=== PATIENT | female | born 1950 | race Caucasian/White ===

== ENCOUNTER → 2019-03-04 | Emergency (ER) | payer OTHER | LOC: JER 15:26 ==

== ENCOUNTER 2019-08-23 08:50 | Inpatient (IN) | payer OTHER ==
[2019-08-23 09:40] LABS: BASO % 0.4 % (0-2.0); EOS % 1.2 % (0-4.5); HEMATOCRIT 32.2 % (32.4-45.2); HEMOGLOBIN 10.7 GM/dL (10.7-15.3); LYMPH % 8.7 % (8-40); MCH 29.7 pg (25.7-33.7); MCHC 33.3 g/dl (32.0-36.0); MEAN CELL VOLUME 89.2 fl (80-96); MEAN PLT VOLUME 8.4 fl (7.5-11.1); MONO % 10.2 % (3.8-10.2); NEUT % 79.5 % (42.8-82.8); PLATELET COUNT 364 K/MM3 (134-434); RBC 3.61 M/mm3 (3.60-5.2); RDW 14.8 % (11.6-15.6); WHITE BLOOD COUNT 19.3 K/mm3 (4.0-10.0)
[2019-08-23 09:55] LABS: INR 1.17 (0.83-1.09); PROTHROMBIN TIME (PATIENT) 13.8 SEC (9.7-13.0)
[2019-08-23 09:58] LABS: ACTIVATED PTT 28.7 SECONDS (25.2-36.5)
[2019-08-23 10:07] LABS: ALBUMIN 2.8 g/dl (3.4-5.0); BILIRUBIN,TOTAL 1.2 mg/dL (0.2-1); BLOOD UREA NITROGEN 47.5 mg/dL (7-18); CREATININE 1.9 mg/dL (0.55-1.3); MAGNESIUM 1.8 mg/dL (1.8-2.4); POTASSIUM 3.7 mmol/L (3.5-5.1); TOT PROT 6.2 g/dl (6.4-8.2)
[2019-08-23] MEDS ORDERED: PALONOSETRON HCL 0.25 MG/5 ML VIAL IVPUSH ONE (15:30)
[2019-08-23] MEDS ORDERED: DEXAMETHASONE INJECTION 12 MG in SODIUM CHLORIDE 50 ML IVPB ONE (15:30)
[2019-08-23] MEDS ORDERED: FOSAPREPITANT DIMEGLUMINE 150 MG in SODIUM CHLORIDE 145 ML IVPB ONE (15:45)
[2019-08-23] MEDS ORDERED: WATER IV ONE (16:15)
[2019-08-23] MEDS ORDERED: GEMCITABINE HCL IV ONE (16:15)
[2019-08-23] MEDS ORDERED: OXALIPLATIN IV ONE (16:15)
[2019-08-23] MEDS ORDERED: DEXTROSE 5% IV ONE (16:15)
[2019-08-23] MEDS ORDERED: SODIUM CHLORIDE IV ONE (16:15)
--- NOTE | 2019-08-23 20:51 | HP ---
Satellite [facility] - Chief Complaint Chief Complaint: Patient seen and examined. Recently diagnosed poorly differentiated carcinoma,on biopsy of 11cm left lobe of the liver mass. no fever/chills/cough/SOB. + nausea, + abdominal pain. No urinary symptoms. No diarrhea - Past Medical History Allergies/Adverse Reactions: Allergies Allergy/AdvReac Type Severity Reaction Status Date / Time No Known Drug Allergies Allergy Verified 03/04/19 15:30 - Current Medications Current Medications: Home Medications Medication Instructions Recorded Calcium Carb/Vit D3/Minerals 1 each PO BID 11/22/13 [Calcium 600 + D Tablet] Levothyroxine [Synthroid -] 50 mcg PO DAILY 03/04/19 Simvastatin [Zocor -] 20 mg PO HS 03/04/19 propRANOLol HCL [Inderal LA -] 60 mg PO DAILY 03/04/19 Satellite Physical Exam - Physical Examination Vital Signs: Vital Signs Period Temp Pulse Resp BP Sys/Ortega Pulse Ox Last 24 Hr 98.6 F-98.6 F 62-68 20-20 97-97/51-51 General Appearance: Alert & Oriented x3 ENT: Clear Lung: Clear to auscultation Heart: Regular rate & rhythm, Normal S1, Normal S2 Abdomen: Soft, Normal bowel sounds Extremities: No edema Neurological: Intact Satellite Impression/Plan - Impression/Plan Operative Procedure: 69 y/o patient with liver mass, RUQ pain. Bx c/w poorly differentiated carcinoma, locally advanced. For Gemzar- oxaliplatin chemotherapy as Creatinine is 1.9. IV hydration. Discussed with all teams involved
--- NOTE | 2019-08-23 20:58 | PN ---
Progress Note (short form) - Note Progress Note: Patient with infiltration of small amount of oxaliplatin in left forearm. noted by nurses. Line aspirated and then needle removed Warm pack will give dexamethasone 8mg bid
[2019-08-23] MEDS: SODIUM CHLORIDE 1,000 ML IV SCH (21:00)
[2019-08-23] MEDS ORDERED: ATORVASTATIN CA 20 MG TABLET (FP) PO SCH (22:00)
[2019-08-23] MEDS: DEXAMETHASONE 4 MG TABLET (FP) PO SCH (22:47)
[2019-08-23] MEDS: PANTOPRAZOLE SODIUM 40 MG VIAL IVPB SCH (22:47)
[2019-08-23 23:41] LABS: EPI CELLS 10.8 /HPF (0-5/HPF); HYALINE CASTS 21 /lpf (0-8); URINE APPEARANCE CLOUDY; URINE BACTERIA 109.8 /hpf (NEGATIVE); URINE BILIRUBIN 1+ (NEGATIVE); URINE COLOR DK YELLOW; URINE GLUCOSE (UA) NEGATIVE (NEGATIVE); URINE KETONE TRACE (NEGATIVE); URINE LEUK ESTERASE TRACE (NEGATIVE); URINE NITRITE NEGATIVE (NEGATIVE); URINE PROTEIN TRACE (NEGATIVE); URINE WBC 5 /hpf (0-5)
[2019-08-24] MEDS: SODIUM CHLORIDE 1,000 ML IV SCH (04:40)
[2019-08-24] MEDS ORDERED: LEVOTHYROXINE NA 50 MCG TABLET (FP) PO SCH (07:00)
[2019-08-24 08:16] LABS: BASO % 0.1 % (0-2.0); HEMOGLOBIN 10.8 GM/dL (10.7-15.3); LYMPH % 4.9 % (8-40); MCH 29.4 pg (25.7-33.7); MCHC 32.7 g/dl (32.0-36.0); MEAN CELL VOLUME 89.9 fl (80-96); MEAN PLT VOLUME 8.7 fl (7.5-11.1); MONO % 3.3 % (3.8-10.2); NEUT % 91.7 % (42.8-82.8); PLATELET COUNT 363 K/MM3 (134-434); RBC 3.67 M/mm3 (3.60-5.2); RDW 14.7 % (11.6-15.6); WHITE BLOOD COUNT 19.9 K/mm3 (4.0-10.0)
[2019-08-24 08:37] LABS: INR 1.13 (0.83-1.09); PROTHROMBIN TIME (PATIENT) 13.3 SEC (9.7-13.0)
[2019-08-24 08:40] LABS: ACTIVATED PTT 27.9 SECONDS (25.2-36.5)
[2019-08-24 08:46] LABS: ALBUMIN 2.9 g/dl (3.4-5.0); BILIRUBIN,TOTAL 0.9 mg/dL (0.2-1); BLOOD UREA NITROGEN 49.6 mg/dL (7-18); CALCIUM 8.8 mg/dL (8.5-10.1); CREATININE 1.4 mg/dL (0.55-1.3); POTASSIUM 3.8 mmol/L (3.5-5.1); TOT PROT 6.5 g/dl (6.4-8.2)
[2019-08-24] MEDS ORDERED: PANTOPRAZOLE 40 MG TABLET (FP) PO SCH (10:00)
[2019-08-24 10:19] LABS: PLATELET ESTIMATE NORMAL
[2019-08-24] MEDS: DEXAMETHASONE 4 MG TABLET (FP) PO SCH (10:32)
[2019-08-24] MEDS: PANTOPRAZOLE SODIUM 40 MG VIAL IVPB SCH (10:32)
[2019-08-24 14:48] VITALS: BMI 37.4
--- NOTE | 2019-08-24 16:56 | CONSULT ---
Consult Consult Specialty:: Nephrology Reason for Consultation:: CELIA - History of Present Illness Chief Complaint: s/p chemo History of Present Illness: Pt is a 69 year old female with pmhx of htn, hld, hypothyroidism and poorly differentiated carcinoma on biopsy of 11cm left lobe of the liver mass who was admitted for fluids after chemo. She was found to have elevated creatinine. She last had iv contrast on 07/29. She was on hctz and lisinopril at home. She denies fevers or chills. She has poor PO intake. She did respond to fluids. - History Source History Provided By: Patient, Medical Record - Past Medical History Cardio/Vascular: Yes: HTN, Hyperlipdemia Heme/Onc: Yes: Other (liver cancer) Endocrine: Yes: Hypothyroidism - Alcohol/Substance Use Hx Alcohol Use: No - Smoking History Smoking history: Unknown if ever smoked Have you smoked in the past 12 months: No Aproximately how many cigarettes per day: 0 If you are a former smoker, when did you quit?: 1994 Home Medications - Allergies Allergies/Adverse Reactions: Allergies Allergy/AdvReac Type Severity Reaction Status Date / Time No Known Drug Allergies Allergy Verified 03/04/19 15:30 - Home Medications Home Medications: Ambulatory Orders Calcium Carb/Vit D3/Minerals [Calcium 600 + D Tablet] 1 each PO BID 11/22/13 Levothyroxine [Synthroid -] 50 mcg PO DAILY 03/04/19 Simvastatin [Zocor -] 20 mg PO HS 03/04/19 propRANOLol HCL [Inderal LA -] 60 mg PO DAILY 03/04/19 Family Medical History Family History: Denies Review of Systems - Review of Systems Constitutional: reports: Malaise Eyes: reports: No Symptoms HENT: reports: No Symptoms Neck: reports: No Symptoms Cardiovascular: reports: Edema Respiratory: reports: No Symptoms Gastrointestinal: reports: Bloating Musculoskeletal: reports: No Symptoms Integumentary: reports: No Symptoms Neurological: reports: No Symptoms Endocrine: reports: No Symptoms Hematology/Lymphatic: reports: No Symptoms Psychiatric: reports: No Symptoms Physical Exam Vital Signs: Vital Signs Temperature 98.8 F 08/24/19 14:22 Pulse Rate 81 08/24/19 14:22 Respiratory Rate 20 08/24/19 14:22 Blood Pressure 123/58 L 08/24/19 14:22 O2 Sat by Pulse Oximetry (%) Constitutional: Yes: Calm Eyes: Yes: Conjunctiva Clear HENT: Yes: Atraumatic Neck: Yes: Supple Cardiovascular: Yes: S1, S2 Respiratory: Yes: CTA Bilaterally Gastrointestinal: Yes: Soft, Abdomen, Obese Musculoskeletal: Yes: WNL Edema: Yes Edema: LLE: 1+, RLE: 1+ Neurological: Yes: Oriented Psychiatric: Yes: Oriented Labs: CBC, BMP 08/24/19 07:35 08/24/19 07:35 Laboratory Tests 07/28/19 08/16/19 08/23/19 07:35 14:16 09:15 WBC 19.3 H Creatinine 0.7 1.0 Urine Protein Urine Blood Ur Random Sodium 08/23/19 08/23/19 08/23/19 09:15 15:07 15:07 WBC Creatinine 1.9 H Urine Protein Trace Urine Blood Negative Ur Random Sodium 16 L 08/24/19 07:35 WBC Creatinine 1.4 H Urine Protein Urine Blood Ur Random Sodium Imaging - Results Cat Scan: Report Reviewed Ultrasound: Report Reviewed Problem List - Problems (1) CELIA (acute kidney injury) Code(s): N17.9 - ACUTE KIDNEY FAILURE, UNSPECIFIED Assessment/Plan Current Medications Generic Name Dose Route Start Last Admin Trade Name Robq PRN Reason Stop Dose Admin Atorvastatin Calcium 20 mg 08/23/19 22:00 08/23/19 22:47 Lipitor - PO 20 mg HS GABRIEL Administration Dexamethasone 8 mg 08/23/19 22:00 08/24/19 10:32 Decadron - PO 8 mg BID GABRIEL Administration Sodium Chloride 1,000 mls @ 75 mls/hr 08/23/19 20:45 08/24/19 04:40 Normal Saline - IV Not Given ASDIR GABRIEL Levothyroxine Sodium 50 mcg 08/24/19 07:00 08/24/19 07:15 Synthroid - PO 50 mcg DAILY@0700 GABRIEL Administration Pantoprazole Sodium 40 mg 08/23/19 22:45 08/24/19 10:32 Protonix Iv IVPB 40 mg DAILY GABRIEL Administration Propranolol HCl 60 mg 08/24/19 10:00 08/24/19 10:32 Inderal La - PO 60 mg DAILY GABRIEL Administration Impression 1. CELIA 2. HTN 3. HLD 4. poorly differentiated carcinoma on biopsy of 11cm left lobe of the liver mass 5. hypothyroidism Plan - pt responded to fluids - stop hctz - stop lisinopril - monitor renal function - decrease propranol dose of bp is low - consider getting a bp monitor at home
--- NOTE | 2019-08-24 19:58 | PN ---
Progress Note (short form) - Note Progress Note: Last Vital Signs Temp Pulse Resp BP Pulse Ox 98.8 F 81 20 123/58 L 08/24/19 14:22 08/24/19 14:22 08/24/19 14:22 08/24/19 14:22 Patient seen and examined Cor: RSR, No murmurs, No gallops Lungs: Clear to P&A Abd:distended Ext:trace edema Skin: No rashes, Integument intact CBC, BMP 08/24/19 07:35 08/24/19 07:35 Current Medications Generic Name Dose Route Start Last Admin Trade Name Freq PRN Reason Stop Dose Admin Atorvastatin Calcium 20 mg 08/23/19 22:00 08/23/19 22:47 Lipitor - PO 20 mg HS GABRIEL Administration Dexamethasone 8 mg 08/23/19 22:00 08/24/19 10:32 Decadron - PO 8 mg BID GABRIEL Administration Sodium Chloride 1,000 mls @ 75 mls/hr 08/23/19 20:45 08/24/19 04:40 Normal Saline - IV Not Given ASDIR GABRIEL Levothyroxine Sodium 50 mcg 08/24/19 07:00 08/24/19 07:15 Synthroid - PO 50 mcg DAILY@0700 GABRIEL Administration Pantoprazole Sodium 40 mg 08/23/19 22:45 08/24/19 10:32 Protonix Iv IVPB 40 mg DAILY GABRIEL Administration Propranolol HCl 60 mg 08/24/19 10:00 08/24/19 10:32 Inderal La - PO 60 mg DAILY GABRIEL Administration Impression: S/P chemotherapy for biliary tract malignancy CELIA Dehydration Plan: For discharge and port insertion Neupogen later in week.
[2019-08-25] MEDS ORDERED: ceFAZolin SODIUM 1 GM VIAL IVPB ONE (15:32)
[2019-08-25] MEDS ORDERED: LIDOCAINE HCL 1%, 10 MG/ML (20ML VIAL) NR ONE ×2 (15:33)
[2019-08-25 17:03] VITALS: BP 113/63
[2019-08-25 17:07] VITALS: PULSE 68; TEMP 98.1
== END 2019-08-24 20:09 | disposition home or self-care (01) | DRG 683 ==
LOC: JONCCHEMO 08:50 → JERBED 17:26 → JONCCHEMO 17:26 → J7W 17:26
PROVIDERS: ADMIT Internal Medicine Hematology & Oncology; ATTEND Internal Medicine Hematology & Oncology
DX: N17.9 Acute kidney failure, unspecified (principal); C22.8 Malignant neoplasm of liver, primary, unspecified as to type; I10 Essential (primary) hypertension; E78.5 Hyperlipidemia, unspecified; E03.9 Hypothyroidism, unspecified; E66.9 Obesity, unspecified; Z68.37 Body mass index [BMI] 37.0-37.9, adult; E86.0 Dehydration
CPT/HCPCS: 36415; 71045-TC-FY; 76700-TC; 80053; 81003; 82565; 83735; 84300; 85025; 85610; 85730; 94760; J1453; J2469; J7030; J9201; J9263

== ENCOUNTER 2019-08-25 12:32 | Day surgery (SDC) | payer OTHER ==
[2019-08-25 13:17] VITALS: TEMP 97.9
[2019-08-25 13:25] VITALS: BMI 37.4
[2019-08-25] MEDS ORDERED: HEPARIN NA (PORCINE) 5,000 UNITS/ML 1ML VIAL ONE (14:58)
[2019-08-25] MEDS ORDERED: LIDOCAINE HCL 1%, 10 MG/ML (20ML VIAL) ONE (14:58)
[2019-08-25] MEDS ORDERED: PROPOFOL 20 ML ONE ×4 (15:11→15:13)
[2019-08-25] MEDS ORDERED: MIDAZOLAM HCL 2 MG/2 ML SINGLE DOSE VIAL ONE (15:13)
[2019-08-25] MEDS ORDERED: SUCCINYLCHOLINE CHLORIDE 200 MG/10 ML SYRINGE ONE (15:30)
[2019-08-25] MEDS ORDERED: ceFAZolin SODIUM 1 GM VIAL ONE (15:31)
--- NOTE | 2019-08-25 16:19 | HP ---
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 Port needed for planned chenotherapy. - Past Medical History Allergies/Adverse Reactions: Allergies Allergy/AdvReac Type Severity Reaction Status Date / Time No Known Drug Allergies Allergy Verified 08/25/19 13:07 Cardiovascular: Yes: HTN, Hyperlipdemia Heme/Onc: Yes: Other (liver cancer) Endocrine: Yes: Hypothyroidism - Current Medications Current Medications: Home Medications Medication Instructions Recorded Calcium Carb/Vit D3/Minerals 1 each PO BID 11/22/13 [Calcium 600 + D Tablet] Levothyroxine [Synthroid -] 50 mcg PO DAILY 03/04/19 Simvastatin [Zocor -] 20 mg PO HS 03/04/19 propRANOLol HCL [Inderal LA -] 60 mg PO DAILY 03/04/19 Satellite Physical Exam - Physical Examination Vital Signs: Vital Signs Period Temp Pulse Resp BP Sys/Ortega Pulse Ox Last 24 Hr 97.9 F-97.9 F 73-73 18-18 104-104/55-55 97-97 General Appearance: Alert & Oriented x3, Anxious ENT: Clear Lung: Clear to auscultation Heart: Regular rate & rhythm Abdomen: Soft Extremities: No edema Satellite Impression/Plan - Impression/Plan Impression: Cholangiocarcinoma Operative Procedure: Placement Portacath Date to be Performed: 08/25/19
[2019-08-25] MEDS ORDERED: ACETAMINOPHEN 325 MG TABLET (FP) PO PRN (16:25)
[2019-08-25] MEDS ORDERED: oxyCODONE HCL 5 MG TABLET PO PRN (16:25)
[2019-08-25 18:29] VITALS: BP 124/60; PULSE 64
--- NOTE | 2019-09-01 17:42 | OP ---
Operative Note - Note: Operative Date: 08/25/19 Pre-Operative Diagnosis: Bile duct cancer Operation: Placement portacath Implants: Single lumen port Post-Operative Diagnosis: Same as Pre-op Surgeon: Bay Stearns Anesthesiologist/JOURNEYMAN PIPEFITTER: Kenney Syed Anesthesia: Fractional
--- NOTE | 2019-09-01 22:57 | OP ---
DATE OF OPERATION: 08/25/2019 PROCEDURE: Placement of Port-A-Cath. PREOPERATIVE DIAGNOSIS: Bile duct cancer. POSTOPERATIVE DIAGNOSIS: Bile duct cancer. ANESTHESIA: Fractional. ANESTHESIOLOGIST: Dr. Syed OPERATIVE PROCEDURE: Following routine patient identification with side and site verification, intravenous sedation was established. The right neck and chest were prepped with ChloraPrep. Timeout was performed. 1% lidocaine was infiltrated lateral to the right internal jugular vein. The vein was imaged with ultrasound, found to be patent and compressible. The vein was cannulated through the skin with the micropuncture needle under ultrasound guidance. A wire was passed proximally into the superior vena cava. The needle was exchanged for a 5 Slovak catheter; the wire was exchanged for a J-tipped wire, which was advanced into the superior vena cava. An introducer was then placed over the wire. Additional lidocaine was infiltrated on the right chest wall, and a skin incision made. Using cautery, a subcutaneous pocket was created to accept the Port-A-Cath. A middle tunneler was passed between the chest and neck, and the catheter was pulled through the tunnel. The catheter was then advanced through the introducer into the superior vena cava. The introducer was peeled away, leaving the catheter in place. The tip of the catheter was positioned at the junction of the SVC right atrium. Blood was aspirated through the catheter, which was flushed with saline solution. Catheter was then trimmed for length and attached to the port, and the port placed into the pocket. It was sutured into place with 3-0 Vicryl sutures. The port was then aspirated and filled with heparin solution. The skin incisions closed with subcutaneous sutures of 3-0 Vicryl, and subcuticular suture of 4-0 Biosyn. Sterile dressings were applied. The patient was taken to the recovery room in stable condition. Oc [id number]
== END 2019-08-25 18:30 | disposition home or self-care (01) ==
LOC: JASU-SURG 12:32
PROVIDERS: ATTEND Surgery
PROC: 02HV33Z Insertion of Infusion Device into Superior Vena Cava, Percutaneous Approach (ICD-10-PCS; principal; 2019-08-25)
PROC: B548ZZA Ultrasonography of Superior Vena Cava, Guidance (ICD-10-PCS; 2019-08-25)
DX: C24.0 Malignant neoplasm of extrahepatic bile duct (principal)
CPT/HCPCS: 36561; C1751; 71045-TC-FY; 76000-TC-FY; J1644

== ENCOUNTER 2019-08-27 05:44 | Day surgery (SDC) | payer OTHER ==
[2019-08-27] MEDS ORDERED: SODIUM CHLORIDE 1,000 ML IV SCH (08:45)
[2019-08-27] MEDS ORDERED: TBO-FILGRASTIM 480 MCG/0.8 ML DISP.SYRIN SQ ONE (09:00)
[2019-08-27 11:17] LABS: BASO % 0.1 % (0-2.0); EOS % 0.9 % (0-4.5); HEMATOCRIT 29.9 % (32.4-45.2); HEMOGLOBIN 9.7 GM/dL (10.7-15.3); LYMPH % 7.1 % (8-40); MCH 29.1 pg (25.7-33.7); MCHC 32.5 g/dl (32.0-36.0); MEAN CELL VOLUME 89.6 fl (80-96); MEAN PLT VOLUME 8.8 fl (7.5-11.1); MONO % 0.5 % (3.8-10.2); NEUT % 91.4 % (42.8-82.8); PLATELET COUNT 215 K/MM3 (134-434); RBC 3.34 M/mm3 (3.60-5.2); WHITE BLOOD COUNT 15.7 K/mm3 (4.0-10.0)
[2019-08-27 11:27] LABS: ALBUMIN 2.5 g/dl (3.4-5.0); BILIRUBIN,TOTAL 0.7 mg/dL (0.2-1); BLOOD UREA NITROGEN 34.2 mg/dL (7-18); CALCIUM 8.3 mg/dL (8.5-10.1); MAGNESIUM 1.8 mg/dL (1.8-2.4); POTASSIUM 3.4 mmol/L (3.5-5.1); TOT PROT 5.5 g/dl (6.4-8.2)
[2019-08-27] MEDS ORDERED: POTASSIUM CHLORIDE TABS 20 MEQ TABLET.ER (FP) PO ONE (11:38)
[2019-08-27 12:41] LABS: ANISOCYTOSIS 0; MACROCYTOSIS 0; PLATELET ESTIMATE NORMAL
[2019-08-27 16:05] VITALS: BP 120/67; PULSE 100; TEMP 98
== END 2019-08-27 13:40 | disposition home or self-care (01) ==
LOC: JONCCHEMO 05:44 → J7W 10:29 → JONCCHEMO 13:40
PROVIDERS: ATTEND Internal Medicine Hematology & Oncology
PROC: 3E0437Z Introduction of Electrolytic and Water Balance Substance into Central Vein, Percutaneous Approach (ICD-10-PCS; principal; 2019-08-27)
DX: C24.0 Malignant neoplasm of extrahepatic bile duct (principal); Z76.89 Persons encountering health services in other specified circumstances
CPT/HCPCS: 36415; 80053; 83735; 85025; 86850; 86900; 86901; 96360; 96361; 96372; J7030

== ENCOUNTER 2019-08-30 05:37 | Day surgery (SDC) | payer OTHER ==
[2019-08-30] MEDS ORDERED: PALONOSETRON HCL 0.25 MG/5 ML VIAL IVPUSH ONE (09:30)
[2019-08-30] MEDS ORDERED: DEXAMETHASONE SODIUM PHOSPHATE 12 MG in SODIUM CHLORIDE 50 ML IVPB ONE (09:30)
[2019-08-30] MEDS ORDERED: SODIUM CHLORIDE 500 ML IV SCH ×2 (10:00)
[2019-08-30] MEDS ORDERED: SODIUM CHLORIDE IV ONE (10:00)
[2019-08-30] MEDS ORDERED: GEMCITABINE HCL IV ONE (10:00)
[2019-08-30 10:13] LABS: BASO % 0.2 % (0-2.0); EOS % 0.6 % (0-4.5); HEMATOCRIT 29.2 % (32.4-45.2); HEMOGLOBIN 9.7 GM/dL (10.7-15.3); LYMPH % 11.5 % (8-40); MCH 29.2 pg (25.7-33.7); MCHC 33.2 g/dl (32.0-36.0); MEAN CELL VOLUME 87.8 fl (80-96); MEAN PLT VOLUME 8.7 fl (7.5-11.1); MONO % 6.8 % (3.8-10.2); NEUT % 80.9 % (42.8-82.8); PLATELET COUNT 37 K/MM3 (134-434); RBC 3.33 M/mm3 (3.60-5.2); RDW 14.8 % (11.6-15.6); WHITE BLOOD COUNT 13.4 K/mm3 (4.0-10.0)
[2019-08-30 10:58] LABS: BLOOD UREA NITROGEN 18.3 mg/dL (7-18); CREATININE 0.7 mg/dL (0.55-1.3); POTASSIUM 3.7 mmol/L (3.5-5.1)
[2019-08-30 10:59] LABS: ALBUMIN 2.3 g/dl (3.4-5.0); BILIRUBIN,TOTAL 0.9 mg/dL (0.2-1); CALCIUM 8.4 mg/dL (8.5-10.1); MAGNESIUM 1.8 mg/dL (1.8-2.4); TOT PROT 5.3 g/dl (6.4-8.2)
[2019-08-30 14:42] LABS: ANISOCYTOSIS 0; MACROCYTOSIS 0; PLATELET ESTIMATE DECREASED
[2019-08-30 17:24] VITALS: BP 138/76; PULSE 82; TEMP 99
--- NOTE | 2019-08-30 17:31 | HP ---
Satellite [facility] - Chief Complaint Chief Complaint: Patient here for elective chemotherapy for cholangiocarcinoma. Diarrhea resolved on imodium. No fever/chills/coughSOB History Source: Patient - Past Medical History Allergies/Adverse Reactions: Allergies Allergy/AdvReac Type Severity Reaction Status Date / Time No Known Drug Allergies Allergy Verified 08/25/19 13:07 - Current Medications Current Medications: Home Medications Medication Instructions Recorded Calcium Carb/Vit D3/Minerals 1 each PO BID 11/22/13 [Calcium 600 + D Tablet] Levothyroxine [Synthroid -] 50 mcg PO DAILY 03/04/19 Simvastatin [Zocor -] 20 mg PO HS 03/04/19 propRANOLol HCL [Inderal LA -] 60 mg PO DAILY 03/04/19 Satellite Physical Exam - Physical Examination Vital Signs: Vital Signs Period Temp Pulse Resp BP Sys/Ortega Pulse Ox Last 24 Hr 99 F 82 20 138/76 General Appearance: Alert & Oriented x3 Lung: Clear to auscultation, Normal air movement Heart: Regular rate & rhythm, Normal S1, Normal S2 Abdomen: Soft, No tenderness, Normal bowel sounds (1+ edema b/l) Neurological: Intact Satellite Impression/Plan - Impression/Plan Impression: 69 y/o patient with cholangiocarcinoma. On gemzar/oxalplatin. D8 gemzar is on hold due to thrombocytopenia. Continue P) hydration. Recheck CBC on Friday09/01/19
== END 2019-08-30 14:00 | disposition home or self-care (01) ==
LOC: JONCCHEMO 05:37 → J7W 10:04 → JONCCHEMO 14:00
PROVIDERS: ATTEND Internal Medicine Hematology & Oncology
PROC: 3E0437Z Introduction of Electrolytic and Water Balance Substance into Central Vein, Percutaneous Approach (ICD-10-PCS; principal; 2019-08-30)
DX: C22.1 Intrahepatic bile duct carcinoma (principal); D69.6 Thrombocytopenia, unspecified
CPT/HCPCS: 36415; 80053; 83605; 83615; 83735; 85025; 86850; 86900; 86901; 96360; 96361; J7030

== ENCOUNTER 2019-09-01 07:47 | Day surgery (SDC) | payer OTHER ==
[2019-09-01] MEDS ORDERED: SODIUM CHLORIDE 1,000 ML IV ONE (11:30)
[2019-09-01 12:01] LABS: BASO % 0.1 % (0-2.0); EOS % 0.2 % (0-4.5); HEMATOCRIT 28.1 % (32.4-45.2); HEMOGLOBIN 9.3 GM/dL (10.7-15.3); LYMPH % 10.7 % (8-40); MEAN CELL VOLUME 87.8 fl (80-96); MEAN PLT VOLUME 9.4 fl (7.5-11.1); MONO % 9.5 % (3.8-10.2); NEUT % 79.5 % (42.8-82.8); PLATELET COUNT 110 K/MM3 (134-434); RBC 3.19 M/mm3 (3.60-5.2); RDW 14.9 % (11.6-15.6); WHITE BLOOD COUNT 16.4 K/mm3 (4.0-10.0)
[2019-09-01 12:33] LABS: ALBUMIN 2.3 g/dl (3.4-5.0); BILIRUBIN,TOTAL 0.8 mg/dL (0.2-1); BLOOD UREA NITROGEN 18.4 mg/dL (7-18); CREATININE 0.7 mg/dL (0.55-1.3); POTASSIUM 3.3 mmol/L (3.5-5.1); TOT PROT 5.2 g/dl (6.4-8.2)
[2019-09-01 12:56] LABS: ANISOCYTOSIS 1+; MACROCYTOSIS 0; PLATELET ESTIMATE DECREASED
[2019-09-01] MEDS ORDERED: DEXAMETHASONE SODIUM PHOSPHATE 12 MG in SODIUM CHLORIDE 50 ML IVPB ONE (14:00)
[2019-09-01] MEDS ORDERED: PALONOSETRON HCL 0.25 MG/5 ML VIAL IVPUSH ONE (14:00)
[2019-09-01] MEDS ORDERED: POTASSIUM CHLORIDE TABS 20 MEQ TABLET.ER (FP) PO ONE (14:24)
[2019-09-01] MEDS ORDERED: DEXAMETHASONE SODIUM PHOSPHATE 10 MG in SODIUM CHLORIDE 50 ML IVPB ONE (15:00)
[2019-09-01] MEDS ORDERED: GEMCITABINE HCL IV ONE (15:30)
[2019-09-01] MEDS ORDERED: SODIUM CHLORIDE IV ONE (15:30)
[2019-09-01 16:29] VITALS: TEMP 98.4
[2019-09-01 17:18] VITALS: BP 110/58; PULSE 85
== END 2019-09-01 18:21 | disposition home or self-care (01) ==
LOC: JONCNONCHE 07:47 → J7W 10:58 → JONCNONCHE 18:21
PROVIDERS: ATTEND Internal Medicine Hematology & Oncology
DX: Z51.11 Encounter for antineoplastic chemotherapy (principal); C22.1 Intrahepatic bile duct carcinoma
CPT/HCPCS: 36415; 80053; 83615; 85025; 96361; 96367; 96375; 96413; J2469; J7030

== ENCOUNTER 2019-09-06 12:34 | Day surgery (SDC) | payer OTHER ==
[2019-09-06 12:01] LABS: BASO % 0.5 % (0-2.0); EOS % 1.2 % (0-4.5); LYMPH % 38.9 % (8-40); MCH 29.4 pg (25.7-33.7); MCHC 33.1 g/dl (32.0-36.0); MEAN CELL VOLUME 88.7 fl (80-96); MEAN PLT VOLUME 8.5 fl (7.5-11.1); MONO % 4.7 % (3.8-10.2); NEUT % 54.7 % (42.8-82.8); PLATELET COUNT 177 K/MM3 (134-434); RBC 3.05 M/mm3 (3.60-5.2); RDW 14.9 % (11.6-15.6); WHITE BLOOD COUNT 3.1 K/mm3 (4.0-10.0)
[2019-09-06 12:32] LABS: ALBUMIN 2.4 g/dl (3.4-5.0); BILIRUBIN,TOTAL 0.7 mg/dL (0.2-1); BLOOD UREA NITROGEN 20.4 mg/dL (7-18); CALCIUM 8.8 mg/dL (8.5-10.1); CREATININE 0.7 mg/dL (0.55-1.3); MAGNESIUM 1.5 mg/dL (1.8-2.4); POTASSIUM 4.3 mmol/L (3.5-5.1); TOT PROT 5.5 g/dl (6.4-8.2)
[2019-09-06 12:41] LABS: PLATELET ESTIMATE ADEQUATE
[2019-09-06] MEDS ORDERED: ONDANSETRON 4 MG/2 ML VIAL IVPB ONE ×2 (12:45→13:00)
[2019-09-06] MEDS ORDERED: MAGNESIUM SULF 50% (8.12 MEQ/2 ML-1 GM VIAL) ONE (13:42)
[2019-09-06] MEDS ORDERED: SODIUM CHLORIDE 100 ML IVPB ONE (13:43)
[2019-09-06] MEDS ORDERED: ALTEPLASE 2 MG VIAL CVP ONE (14:00)
[2019-09-06] MEDS ORDERED: MAGNESIUM SULFATE 2 GM in SODIUM CHLORIDE 100 ML IVPB ONE (14:00)
[2019-09-06] MEDS ORDERED: TBO-FILGRASTIM 480 MCG/0.8 ML DISP.SYRIN SQ ONE (16:00)
[2019-09-06 17:03] VITALS: TEMP 98
[2019-09-06 17:04] VITALS: BP 115/61; PULSE 87
== END 2019-09-06 15:15 | disposition home or self-care (01) ==
LOC: JONCNONCHE 12:34 → J7W 13:09 → JONCNONCHE 15:15
PROVIDERS: ATTEND Internal Medicine Hematology & Oncology
PROC: 3E033GC Introduction of Other Therapeutic Substance into Peripheral Vein, Percutaneous Approach (ICD-10-PCS; principal; 2019-09-06)
DX: C22.1 Intrahepatic bile duct carcinoma (principal); Z76.89 Persons encountering health services in other specified circumstances
CPT/HCPCS: 36415; 80053; 83615; 83735; 85025; 86850; 86900; 86901; 96365; 96372; J1447

== ENCOUNTER 2019-09-10 11:29 | Day surgery (SDC) | payer OTHER ==
[2019-09-10 10:31] LABS: BASO % 0.2 % (0-2.0); EOS % 0.7 % (0-4.5); HEMOGLOBIN 8.3 GM/dL (10.7-15.3); LYMPH % 8.6 % (8-40); MCH 29.5 pg (25.7-33.7); MCHC 33.3 g/dl (32.0-36.0); MEAN CELL VOLUME 88.6 fl (80-96); MEAN PLT VOLUME 9.1 fl (7.5-11.1); MONO % 7.4 % (3.8-10.2); NEUT % 83.1 % (42.8-82.8); PLATELET COUNT 143 K/MM3 (134-434); RBC 2.82 M/mm3 (3.60-5.2); RDW 14.9 % (11.6-15.6)
[2019-09-10 10:56] LABS: ALBUMIN 2.3 g/dl (3.4-5.0); BILIRUBIN,TOTAL 0.6 mg/dL (0.2-1); BLOOD UREA NITROGEN 16.1 mg/dL (7-18); CALCIUM 8.8 mg/dL (8.5-10.1); CREATININE 0.8 mg/dL (0.55-1.3); MAGNESIUM 1.6 mg/dL (1.8-2.4); TOT PROT 5.1 g/dl (6.4-8.2)
[2019-09-10 11:05] LABS: INR 1.2 (0.83-1.09); PROTHROMBIN TIME (PATIENT) 14.2 SEC (9.7-13.0)
[2019-09-10 11:07] LABS: ACTIVATED PTT 33.8 SECONDS (25.2-36.5)
[2019-09-10] MEDS ORDERED: MAGNESIUM SULF 50% (8.12 MEQ/2 ML-1 GM VIAL) IVPB ONE (11:49)
[2019-09-10 13:57] LABS: ANISOCYTOSIS 1+; MACROCYTOSIS 0; PLATELET ESTIMATE DECREASED
[2019-09-10] MEDS ORDERED: FUROSEMIDE 40 MG/4 ML INJECTABLE VIAL IVPUSH ONE (15:15)
[2019-09-10 16:48] LABS: EPI CELLS 26.5 /HPF (0-5/HPF); HYALINE CASTS 7 /lpf (0-8); URINE APPEARANCE TURBID; URINE BILIRUBIN NEGATIVE (NEGATIVE); URINE COLOR YELLOW; URINE GLUCOSE (UA) NEGATIVE (NEGATIVE); URINE KETONE NEGATIVE (NEGATIVE); URINE LEUK ESTERASE 2+ (NEGATIVE); URINE NITRITE POSITIVE (NEGATIVE); URINE PROTEIN NEGATIVE (NEGATIVE); URINE UROBILINOGEN 0.2 mg/dL (0.2-1.0); URINE WBC 247 /hpf (0-5)
[2019-09-10 17:37] VITALS: PULSE 90
[2019-09-10 17:38] VITALS: BP 122/63; TEMP 98.4
[2019-09-10 17:43] LABS: URINE BACTERIA 9535.9 /hpf (NEGATIVE); URINE RBC 57.1 /hpf (0-4); YEAST FEW (NEGATIVE)
== END 2019-09-10 17:30 | disposition home or self-care (01) ==
LOC: JONCBLOOD 11:29 → J7W 11:48 → JONCBLOOD 17:30 → J7W 17:30
PROVIDERS: ATTEND Internal Medicine Hematology & Oncology
PROC: 30243N1 Transfusion of Nonautologous Red Blood Cells into Central Vein, Percutaneous Approach (ICD-10-PCS; principal; 2019-09-10)
PROC: 3E043GC Introduction of Other Therapeutic Substance into Central Vein, Percutaneous Approach (ICD-10-PCS; 2019-09-10)
DX: Z76.89 Persons encountering health services in other specified circumstances (principal); C22.1 Intrahepatic bile duct carcinoma
CPT/HCPCS: 36415; 36430; 71045-TC-FY; 80053; 81003; 83735; 85025; 85610; 85730; 86850; 86900; 86901; 86922; 87086; 87186; P9058

== ENCOUNTER 2019-09-13 07:18 | Day surgery (SDC) | payer OTHER ==
[2019-09-13] MEDS ORDERED: SODIUM CHLORIDE 250 ML IV ONE ×2 (09:00→12:30)
[2019-09-13] MEDS ORDERED: PALONOSETRON HCL 0.25 MG/5 ML VIAL IVPUSH ONE (09:30)
[2019-09-13] MEDS ORDERED: FOSAPREPITANT DIMEGLUMINE 150 MG in SODIUM CHLORIDE 145 ML IVPB ONE (09:30)
[2019-09-13] MEDS ORDERED: DEXAMETHASONE SODIUM PHOSPHATE 12 MG in SODIUM CHLORIDE 50 ML IVPB ONE (09:30)
[2019-09-13] MEDS ORDERED: SODIUM CHLORIDE IV ONE (10:00)
[2019-09-13] MEDS ORDERED: GEMCITABINE HCL IV ONE (10:00)
[2019-09-13] MEDS ORDERED: DEXTROSE 5% IV ONE (10:30)
[2019-09-13] MEDS ORDERED: OXALIPLATIN IV ONE (10:30)
[2019-09-13] MEDS ORDERED: WATER IV ONE (10:30)
[2019-09-13 10:38] LABS: BASO % 0.3 % (0-2.0); EOS % 0.2 % (0-4.5); HEMATOCRIT 28.2 % (32.4-45.2); HEMOGLOBIN 9.3 GM/dL (10.7-15.3); LYMPH % 9.8 % (8-40); MCH 30.2 pg (25.7-33.7); MCHC 32.9 g/dl (32.0-36.0); MEAN CELL VOLUME 91.8 fl (80-96); MEAN PLT VOLUME 9.8 fl (7.5-11.1); MONO % 11.9 % (3.8-10.2); NEUT % 77.8 % (42.8-82.8); PLATELET COUNT 205 K/MM3 (134-434); RBC 3.07 M/mm3 (3.60-5.2); RDW 15.4 % (11.6-15.6); WHITE BLOOD COUNT 24.4 K/mm3 (4.0-10.0)
--- NOTE | 2019-09-13 11:23 | CON.PULM ---
Consult Consult Specialty:: PULMONARY Referred by:: Dr Walden Reason for Consultation:: shortness of breath - History of Present Illness Chief Complaint: shortness of breath History of Present Illness: 69yo female with h/o HTN, hyperlipidemia, hypothyroidism, recently diagnosed metastatic cholangiocarcinoma who is here for chemotherapy. She has been experiencing worsening shortness of breath x 2 weeks as well as a nonproductive cough. No chest pain, palpitations, wheezing. No fevers, chills or sweats. Reports increasing leg swelling and abdominal bloating. No nausea or vomiting. She is a remote smoker, denies history of asthma or COPD. Does not take inhalers at home. She has gained 20lbs over the past month. - History Source History Provided By: Patient, Medical Record Limitations to Obtaining History: No Limitations - Past Medical History Cardio/Vascular: Yes: HTN, Hyperlipdemia Endocrine: Yes: Hypothyroidism - Alcohol/Substance Use Hx Alcohol Use: No - Smoking History Smoking history: Former smoker Have you smoked in the past 12 months: No Aproximately how many cigarettes per day: 0 If you are a former smoker, when did you quit?: 1994 Home Medications - Allergies Allergies/Adverse Reactions: Allergies Allergy/AdvReac Type Severity Reaction Status Date / Time No Known Drug Allergies Allergy Verified 08/25/19 13:07 - Home Medications Home Medications: Ambulatory Orders Levothyroxine [Synthroid -] 50 mcg PO DAILY 03/04/19 propRANOLol HCL [Inderal LA -] 60 mg PO DAILY 03/04/19 Furosemide [Lasix] 20 mg PO DAILY 09/13/19 Potassium Chloride [K-Dur -] 20 meq PO DAILY 09/13/19 Review of Systems - Review of Systems Constitutional: reports: Weakness. denies: Chills, Fever Eyes: denies: Recent Change in Vision HENT: denies: Throat Pain Neck: denies: Stiffness, Tenderness Cardiovascular: reports: Edema, Shortness of Breath. denies: Chest Pain, Palpitations Respiratory: reports: Cough, Exercise Intolerance, SOB on Exertion. denies: Hemoptysis, Wheezing Gastrointestinal: denies: Abdominal Pain, Nausea, Vomiting Genitourinary: denies: Dysuria, Hematuria Neurological: denies: Dizziness, Headache Endocrine: reports: Unexplained Weight Gain Physical Exam Constitutional: Yes: Calm Eyes: Yes: Conjunctiva Clear, EOM Intact HENT: Yes: Atraumatic, Normocephalic Neck: Yes: Supple, Trachea Midline Cardiovascular: Yes: Tachycardia Respiratory: Yes: Diminished (decreased breath sounds at the bases) ...Clubbing: No Gastrointestinal: Yes: Normal Bowel Sounds, Soft, Distention. No: Tenderness Edema: Yes Labs: CBC, BMP 09/13/19 09:30 Imaging - Results Chest X-ray: Report Reviewed, Image Reviewed (poor inspiration, basilar atelectasis) Problem List - Problems (1) Shortness of breath Code(s): R06.02 - SHORTNESS OF BREATH Assessment/Plan Metastatic Cholangiocarcinoma Shortness of breath r/o CHF r/o Ascites HTN Hyperlipidemia Hypothyroidism - would increase lasix trial - echocardiogram - abdominal ultrasound to r/o ascites - daily weights - outpt PFTs Thank you for this consult Kamron Weaver MD
[2019-09-13 11:27] LABS: ALBUMIN 2.1 g/dl (3.4-5.0); BILIRUBIN,TOTAL 0.6 mg/dL (0.2-1); BLOOD UREA NITROGEN 21.4 mg/dL (7-18); CALCIUM 8.9 mg/dL (8.5-10.1); MAGNESIUM 1.9 mg/dL (1.8-2.4); POTASSIUM 4.5 mmol/L (3.5-5.1); TOT PROT 5.2 g/dl (6.4-8.2)
[2019-09-13 12:18] LABS: ANISOCYTOSIS 3+; MACROCYTOSIS 1+
[2019-09-13 12:30] LABS: PLATELET ESTIMATE ADEQUATE
--- NOTE | 2019-09-13 14:17 | CONSULT ---
Consult Consult Specialty:: Nephrology Reason for Consultation:: edema - History of Present Illness Chief Complaint: edema History of Present Illness: Pt is a mal 69 year old lady with pmhx of liver cancer who is getting chemo. I was called to evaluate her for lower ext edema. She has gained about 20 pounds of water weight. She was on lasix at home. She was on 20 mg. It was held a few days last week. She denies shortness of breath. - History Source History Provided By: Patient - Past Medical History Cardio/Vascular: Yes: HTN, Hyperlipdemia Renal/: Yes: Renal Inusuff Endocrine: Yes: Hypothyroidism - Alcohol/Substance Use Hx Alcohol Use: No - Smoking History Smoking history: Former smoker Have you smoked in the past 12 months: No Aproximately how many cigarettes per day: 0 If you are a former smoker, when did you quit?: 1994 Home Medications - Allergies Allergies/Adverse Reactions: Allergies Allergy/AdvReac Type Severity Reaction Status Date / Time No Known Drug Allergies Allergy Verified 08/25/19 13:07 - Home Medications Home Medications: Ambulatory Orders Levothyroxine [Synthroid -] 50 mcg PO DAILY 03/04/19 propRANOLol HCL [Inderal LA -] 60 mg PO DAILY 03/04/19 Furosemide [Lasix] 20 mg PO DAILY 09/13/19 Potassium Chloride [K-Dur -] 20 meq PO DAILY 09/13/19 Family Medical History Family History: Denies Review of Systems - Review of Systems Constitutional: reports: Malaise Eyes: reports: No Symptoms Neck: reports: No Symptoms Cardiovascular: reports: Edema Respiratory: reports: No Symptoms Gastrointestinal: reports: Abdominal Pain Genitourinary: reports: No Symptoms Musculoskeletal: reports: No Symptoms Endocrine: reports: No Symptoms Physical Exam Constitutional: Yes: Anxious Eyes: Yes: Conjunctiva Clear HENT: Yes: Atraumatic Neck: Yes: Supple Cardiovascular: Yes: S1, S2 Respiratory: Yes: CTA Bilaterally Gastrointestinal: Yes: Soft Renal/: Yes: WNL Musculoskeletal: Yes: WNL Edema: Yes Edema: LLE: 3+, RLE: 3+ Neurological: Yes: Oriented Psychiatric: Yes: Oriented Labs: CBC, BMP 09/13/19 09:30 09/13/19 09:30 Laboratory Tests 09/13/19 09/13/19 09:30 09:30 WBC 24.4 H Hgb 9.3 L Sodium 139 Potassium 4.5 BUN 21.4 H Creatinine 1.0 AST 76 H ALT 38 Alkaline Phosphatase 308 H Albumin 2.1 L Assessment/Plan Impression 1. fluid overload 2. HTN 3. HLD 4. poorly differentiated carcinoma on biopsy of 11cm left lobe of the liver mass 5. hypothyroidism Plan - increase lasix to 40 mg daily - if no response she will need admission - monitor renal function - limit fluid intake - discussed with oncology - steroids can lead to water and salt retention as well. They can increase bun levels also.
[2019-09-13 16:06] VITALS: TEMP 98.3
[2019-09-13 16:09] VITALS: BP 115/62; PULSE 91
== END 2019-09-13 18:17 | disposition home or self-care (01) ==
LOC: JONCCHEMO 07:18 → J7W 09:13 → JONCCHEMO 18:17
PROVIDERS: ATTEND Internal Medicine Hematology & Oncology
PROC: 3E04305 Introduction of Other Antineoplastic into Central Vein, Percutaneous Approach (ICD-10-PCS; principal; 2019-09-13)
PROC: 3E043GC Introduction of Other Therapeutic Substance into Central Vein, Percutaneous Approach (ICD-10-PCS; 2019-09-13)
DX: Z51.11 Encounter for antineoplastic chemotherapy (principal); C22.1 Intrahepatic bile duct carcinoma
CPT/HCPCS: 36415; 76700-TC; 80053; 83735; 85025; 93970-TC; 96367; 96375; 96413; 96415; 96417; J1453; J2469; J9263

== ENCOUNTER 2019-09-17 09:52 | Inpatient (IN) | payer OTHER ==
[2019-09-17 10:58] LABS: BASO % 0.2 % (0-2.0); EOS % 0.2 % (0-4.5); HEMATOCRIT 27.3 % (32.4-45.2); HEMOGLOBIN 8.9 GM/dL (10.7-15.3); LYMPH % 3.8 % (8-40); MCH 29.7 pg (25.7-33.7); MCHC 32.6 g/dl (32.0-36.0); MEAN CELL VOLUME 91.4 fl (80-96); MEAN PLT VOLUME 8.5 fl (7.5-11.1); MONO % 0.8 % (3.8-10.2); PLATELET COUNT 180 K/MM3 (134-434); RBC 2.99 M/mm3 (3.60-5.2); RDW 16.2 % (11.6-15.6)
[2019-09-17 11:01] LABS: WHITE BLOOD COUNT 37.1 K/mm3 (4.0-10.0)
[2019-09-17 11:24] LABS: ANISOCYTOSIS 0; MACROCYTOSIS 0; PLATELET ESTIMATE NORMAL
[2019-09-17 11:43] LABS: ALBUMIN 2.3 g/dl (3.4-5.0); BILIRUBIN,TOTAL 0.9 mg/dL (0.2-1); BLOOD UREA NITROGEN 38.8 mg/dL (7-18); CALCIUM 8.9 mg/dL (8.5-10.1); CREATININE 0.9 mg/dL (0.55-1.3); POTASSIUM 4.7 mmol/L (3.5-5.1); TOT PROT 5.4 g/dl (6.4-8.2)
[2019-09-17] MEDS ORDERED: FUROSEMIDE 40 MG/4 ML INJECTABLE VIAL IVPUSH ONE ×2 (14:56→21:00)
[2019-09-17] MEDS ORDERED: PORTA CATH FLUSH 10 ML IVPUSH ONE (15:26)
[2019-09-17] MEDS ORDERED: ALBUMIN HUMAN 25% 100 ML VIAL IVPB ONE ×2 (15:30→20:00)
--- NOTE | 2019-09-17 16:49 | HP ---
Admitting History and Physical - Past Medical History Cardiovascular: Yes: HTN, Hyperlipdemia Renal/: Yes: Renal Inusuff Endocrine: Yes: Hypothyroidism - Advance Directives Advance Directives: Yes: Health Care Proxy - Smoking History Smoking history: Former smoker Have you smoked in the past 12 months: No Aproximately how many cigarettes per day: 0 If you are a former smoker, when did you quit?: 1994 - Alcohol/Substance Use Hx Alcohol Use: No Home Medications - Allergies Allergies/Adverse Reactions: Allergies Allergy/AdvReac Type Severity Reaction Status Date / Time No Known Drug Allergies Allergy Verified 08/25/19 13:07 - Home Medications Home Medications: Ambulatory Orders Levothyroxine [Synthroid -] 50 mcg PO DAILY 03/04/19 propRANOLol HCL [Inderal LA -] 60 mg PO DAILY 03/04/19 Furosemide [Lasix] 20 mg PO DAILY 09/13/19 Potassium Chloride [K-Dur -] 20 meq PO DAILY 09/13/19 Physical Examination Vital Signs: Vital Signs Temperature 98.2 F 09/17/19 10:00 Pulse Rate 99 H 09/17/19 10:00 Respiratory Rate 20 09/17/19 10:00 Blood Pressure 130/64 09/17/19 10:00 O2 Sat by Pulse Oximetry (%) Labs: CBC, BMP 09/17/19 10:00 09/17/19 10:00 Assessment/Plan Patient seen and examined 69 year old female with metastatic cholangiocarcinoma admitted with increasing fluid retention and SOB Patient is s/p cycle # 2 day 5 of oxaliplalatin gemcitibine therapy. Has required transfusion therapy in past . Receiving growth factor support. Last Vital Signs Temp Pulse Resp BP Pulse Ox 98.2 F 99 H 20 130/64 09/17/19 10:00 09/17/19 10:00 09/17/19 10:00 09/17/19 10:00 HEENT: CHARLIE, EOM Intact Oropharynx: No thrush, No mucositis Cor: RSR, No murmurs, No gallops Lungs: diminished breath sounds bilaterally Abd: distended , no masses Ext: significant edema LE's Skin: No rashes, Integument intact CBC, BMP 09/17/19 10:00 09/17/19 10:00 Current Medications Generic Name Dose Route Start Last Admin Trade Name Freq PRN Reason Stop Dose Admin Levothyroxine Sodium 50 mcg 09/18/19 07:00 Synthroid - PO DAILY@0700 GABRIEL Pantoprazole Sodium 40 mg 09/18/19 10:00 Protonix - PO DAILY GABRIEL Potassium Chloride 20 meq 09/18/19 10:00 K-Dur - PO DAILY GABRIEL Propranolol HCl 60 mg 09/17/19 15:15 09/17/19 15:55 Inderal La - PO 60 mg DAILY GABRIEL Administration Impression: Cholangioca Liver mets Chemotherapy - cycle 2 , day 5 of oxaliplatin / gecitibine Anemia Fluid overload Plan: SPA/lasix diuresis
--- NOTE | 2019-09-17 17:47 | CONSULT ---
Consult Consult Specialty:: Nephrology Reason for Consultation:: fluid overload - History of Present Illness Chief Complaint: fluid overload History of Present Illness: Pt seen and examined at bedside. SHe is admitted for fluid overload. SHe increased her lasix to 40 mg po daily as outpt however it did not help. She complains of lower ext edema and shortness of breath. - History Source History Provided By: Patient - Past Medical History Cardio/Vascular: Yes: HTN, Hyperlipdemia Renal/: Yes: Renal Inusuff Endocrine: Yes: Hypothyroidism - Alcohol/Substance Use Hx Alcohol Use: No - Smoking History Smoking history: Former smoker Have you smoked in the past 12 months: No Aproximately how many cigarettes per day: 0 If you are a former smoker, when did you quit?: 1994 Home Medications - Allergies Allergies/Adverse Reactions: Allergies Allergy/AdvReac Type Severity Reaction Status Date / Time No Known Drug Allergies Allergy Verified 08/25/19 13:07 - Home Medications Home Medications: Ambulatory Orders Levothyroxine [Synthroid -] 50 mcg PO DAILY 03/04/19 propRANOLol HCL [Inderal LA -] 60 mg PO DAILY 03/04/19 Furosemide [Lasix] 20 mg PO DAILY 09/13/19 Potassium Chloride [K-Dur -] 20 meq PO DAILY 09/13/19 Family Medical History Family History: Denies Review of Systems - Review of Systems Constitutional: reports: Malaise Eyes: reports: No Symptoms HENT: reports: No Symptoms Neck: reports: No Symptoms Cardiovascular: reports: Edema Respiratory: reports: SOB, SOB on Exertion Gastrointestinal: reports: No Symptoms Genitourinary: reports: No Symptoms Musculoskeletal: reports: No Symptoms Integumentary: reports: No Symptoms Physical Exam Vital Signs: Vital Signs Temperature 97.4 F L 09/17/19 16:25 Pulse Rate 103 H 09/17/19 16:25 Respiratory Rate 136 H 09/17/19 16:25 Blood Pressure 136/69 09/17/19 16:25 O2 Sat by Pulse Oximetry (%) Constitutional: Yes: Calm Eyes: Yes: Conjunctiva Clear HENT: Yes: Atraumatic Cardiovascular: Yes: S1, S2 Respiratory: Yes: CTA Bilaterally Gastrointestinal: Yes: Soft, Abdomen, Obese Musculoskeletal: Yes: WNL Edema: Yes Edema: LLE: 3+, RLE: 3+ Neurological: Yes: Oriented Psychiatric: Yes: Oriented Labs: CBC, BMP 12/20/19 10:00 09/17/19 10:00 Problem List - Problems (1) Fluid overload Code(s): E87.70 - FLUID OVERLOAD, UNSPECIFIED Assessment/Plan Current Medications Generic Name Dose Route Start Last Admin Trade Name Freq PRN Reason Stop Dose Admin Albumin Human 25 gm 09/17/19 20:00 Albumin Human 25% - IVPB 09/17/19 20:01 ONCE ONE Alprazolam 0.5 mg 09/17/19 17:40 Xanax PO Q12H PRN ANXIETY Furosemide 40 mg 09/17/19 21:00 Lasix Injection - IVPUSH 09/17/19 21:01 ONCE ONE Levothyroxine Sodium 50 mcg 09/18/19 07:00 Synthroid - PO DAILY@0700 GABRIEL Pantoprazole Sodium 40 mg 09/18/19 10:00 Protonix - PO DAILY GABRIEL Potassium Chloride 20 meq 09/18/19 10:00 K-Dur - PO DAILY GABRIEL Propranolol HCl 60 mg 09/17/19 15:15 09/17/19 15:55 Inderal La - PO 60 mg DAILY GABRIEL Administration Impression 1. fluid overload 2. HTN 3. HLD 4. poorly differentiated carcinoma on biopsy of 11cm left lobe of the liver mass 5. hypothyroidism 6. elevated LDH 7. leukocytosis Plan - star IV lasix, 40 IV BID - start albumin - monitor electrolytes - monitor potassium - increase lasix to 40 mg daily - consider moving to a monitored setting - cxr
[2019-09-17] MEDS: ALPRAZolam 0.25 MG TABLET PO PRN (21:18)
[2019-09-18] MEDS: LEVOTHYROXINE NA 50 MCG TABLET (FP) PO SCH (06:20)
[2019-09-18 08:56] LABS: BASO % 0.2 % (0-2.0); EOS % 0.2 % (0-4.5); HEMATOCRIT 26.6 % (32.4-45.2); HEMOGLOBIN 8.9 GM/dL (10.7-15.3); LYMPH % 5.2 % (8-40); MCHC 33.5 g/dl (32.0-36.0); MEAN CELL VOLUME 89.7 fl (80-96); MEAN PLT VOLUME 8.6 fl (7.5-11.1); NEUT % 92.4 % (42.8-82.8); PLATELET COUNT 122 K/MM3 (134-434); RBC 2.96 M/mm3 (3.60-5.2); RDW 15.9 % (11.6-15.6)
[2019-09-18 09:11] LABS: WHITE BLOOD COUNT 31.2 K/mm3 (4.0-10.0)
[2019-09-18 09:40] LABS: ALBUMIN 2.5 g/dl (3.4-5.0); BLOOD UREA NITROGEN 40.1 mg/dL (7-18); CALCIUM 8.9 mg/dL (8.5-10.1); CREATININE 0.8 mg/dL (0.55-1.3); MAGNESIUM 2.5 mg/dL (1.8-2.4); POTASSIUM 4.7 mmol/L (3.5-5.1); TOT PROT 5.7 g/dl (6.4-8.2)
[2019-09-18] MEDS: POTASSIUM CHLORIDE TABS 20 MEQ TABLET.ER (FP) PO SCH (10:05)
[2019-09-18] MEDS: PANTOPRAZOLE 40 MG TABLET (FP) PO SCH (10:05)
[2019-09-18] MEDS ORDERED: FUROSEMIDE 40 MG/4 ML INJECTABLE VIAL IVPUSH ONE (10:55)
[2019-09-18] MEDS ORDERED: ALBUMIN HUMAN 25% 100 ML VIAL IVPB ONE (11:00)
[2019-09-18 11:26] LABS: ANISOCYTOSIS 1+; MACROCYTOSIS 0; PLATELET ESTIMATE DECREASED
--- NOTE | 2019-09-18 18:35 | PN ---
Progress Note (short form) - Note Progress Note: 1. fluid overload 2. HTN 3. HLD 4. poorly differentiated carcinoma on biopsy of 11cm left lobe of the liver mass 5. hypothyroidism 6. elevated LDH 7. leukocytosis Current Medications Alprazolam (Xanax -) 0.5 mg PO Q12H PRN PRN Reason: ANXIETY Last Admin: 09/17/19 21:18 Dose: 0.5 mg Levofloxacin (Levaquin 500 Mg Premixed Ivpb -) 500 mg in 100 mls @ 100 mls/hr IVPB DAILY [facility]; Protocol Last Admin: 09/18/19 10:04 Dose: 100 mls/hr Levothyroxine Sodium (Synthroid -) 50 mcg PO DAILY@0700 [facility] Last Admin: 09/18/19 06:20 Dose: 50 mcg Pantoprazole Sodium (Protonix -) 40 mg PO DAILY [facility] Last Admin: 09/18/19 10:05 Dose: 40 mg Potassium Chloride (K-Dur -) 20 meq PO DAILY [facility] Last Admin: 09/18/19 10:05 Dose: 20 meq Propranolol HCl (Inderal La -) 60 mg PO DAILY [facility] Last Admin: 09/18/19 10:05 Dose: 60 mg Last Vital Signs Temp Pulse Resp BP Pulse Ox 97.4 F L 102 H 21 H 140/74 100 09/18/19 15:03 09/18/19 15:03 09/18/19 15:03 09/18/19 15:03 09/18/19 09:00 Lungs clear Heart reg Abd distended ext marked edema CBC, BMP 09/18/19 06:30 09/18/19 06:30 prerenal anasarca intravascular depleted- poor response to lasix 40 mg on diuretics and albumin Plan- trial of lasix 60mg bid with albumin prior to dose
--- NOTE | 2019-09-18 18:55 | PN ---
Progress Note, Physician History of Present Illness: still with significant SOB with minimal exertion and LE edema - Current Medication List Current Medications: Active Medications Alprazolam (Xanax -) 0.5 mg PO Q12H PRN PRN Reason: ANXIETY Last Admin: 09/17/19 21:18 Dose: 0.5 mg Levofloxacin (Levaquin 500 Mg Premixed Ivpb -) 500 mg in 100 mls @ 100 mls/hr IVPB DAILY [facility]; Protocol Last Admin: 09/18/19 10:04 Dose: 100 mls/hr Levothyroxine Sodium (Synthroid -) 50 mcg PO DAILY@0700 [facility] Last Admin: 09/18/19 06:20 Dose: 50 mcg Pantoprazole Sodium (Protonix -) 40 mg PO DAILY [facility] Last Admin: 09/18/19 10:05 Dose: 40 mg Potassium Chloride (K-Dur -) 20 meq PO DAILY [facility] Last Admin: 09/18/19 10:05 Dose: 20 meq Propranolol HCl (Inderal La -) 60 mg PO DAILY [facility] Last Admin: 09/18/19 10:05 Dose: 60 mg - Objective Vital Signs: Vital Signs Temperature 97.4 F L 09/18/19 15:03 Pulse Rate 102 H 09/18/19 15:03 Respiratory Rate 21 H 09/18/19 15:03 Blood Pressure 140/74 09/18/19 15:03 O2 Sat by Pulse Oximetry (%) 100 09/18/19 09:00 Constitutional: Yes: No Distress Eyes: Yes: Conjunctiva Clear Cardiovascular: Yes: Regular Rate and Rhythm Gastrointestinal: Yes: Soft. No: Tenderness Edema: LLE: 2+, RLE: 2+ Labs: CBC, BMP 09/18/19 06:30 09/18/19 06:30 Assessment/Plan 69F with cholangiocarcinoma on carbo/gem admitted with fluid overload. On albumin and lasix, still significantly overloaded Will continue to follow
[2019-09-18] MEDS ORDERED: ALBUMIN HUMAN 25% 12.5 GM/50 ML VIAL IVPB SCH (19:30)
[2019-09-18] MEDS: ALPRAZolam 0.25 MG TABLET PO PRN (21:00)
[2019-09-19] MEDS: ALBUMIN HUMAN 25% 12.5 GM/50 ML VIAL IVPB SCH ×4 (05:15→06:49)
[2019-09-19] MEDS ORDERED: FUROSEMIDE 100 MG/10 ML INJECTABLE VIAL IVPB SCH ×2 (06:00)
[2019-09-19] MEDS: LEVOTHYROXINE NA 50 MCG TABLET (FP) PO SCH (06:20)
[2019-09-19 06:25] LABS: BASO % 0.1 % (0-2.0); EOS % 0.1 % (0-4.5); LYMPH % 6.3 % (8-40); MCH 29.5 pg (25.7-33.7); MCHC 32.3 g/dl (32.0-36.0); MEAN CELL VOLUME 91.4 fl (80-96); MEAN PLT VOLUME 8.8 fl (7.5-11.1); MONO % 4.5 % (3.8-10.2); PLATELET COUNT 46 K/MM3 (134-434); RBC 1.85 M/mm3 (3.60-5.2); RDW 16.2 % (11.6-15.6); WHITE BLOOD COUNT 20.6 K/mm3 (4.0-10.0)
[2019-09-19 06:51] LABS: HEMATOCRIT 16.9 % (32.4-45.2); HEMOGLOBIN 5.4 GM/dL (10.7-15.3)
[2019-09-19 07:00] LABS: ALBUMIN 2.7 g/dl (3.4-5.0); BILIRUBIN,TOTAL 0.9 mg/dL (0.2-1); BLOOD UREA NITROGEN 37.1 mg/dL (7-18); CALCIUM 8.5 mg/dL (8.5-10.1); CREATININE 0.8 mg/dL (0.55-1.3); POTASSIUM 4.6 mmol/L (3.5-5.1); TOT PROT 5.6 g/dl (6.4-8.2)
[2019-09-19] MEDS: oxyCODONE HCL 5 MG TABLET PO PRN (08:10)
[2019-09-19 08:28] LABS: ANISOCYTOSIS 1+; MACROCYTOSIS 0; PLATELET ESTIMATE DECREASED
[2019-09-19] MEDS: POTASSIUM CHLORIDE TABS 20 MEQ TABLET.ER (FP) PO SCH (11:01)
[2019-09-19] MEDS: PANTOPRAZOLE 40 MG TABLET (FP) PO SCH (11:02)
[2019-09-19] MEDS: FUROSEMIDE 40 MG/4 ML INJECTABLE VIAL IVPB SCH (17:40)
[2019-09-19 19:02] LABS: BASO % 0.1 % (0-2.0); HEMOGLOBIN 9.8 GM/dL (10.7-15.3); LYMPH % 7.4 % (8-40); MCH 29.2 pg (25.7-33.7); MCHC 32.7 g/dl (32.0-36.0); MEAN CELL VOLUME 89.2 fl (80-96); MEAN PLT VOLUME 8.1 fl (7.5-11.1); NEUT % 85.5 % (42.8-82.8); PLATELET COUNT 46 K/MM3 (134-434); RBC 3.36 M/mm3 (3.60-5.2); RDW 15.8 % (11.6-15.6); WHITE BLOOD COUNT 24.7 K/mm3 (4.0-10.0)
[2019-09-19 19:32] LABS: PLATELET ESTIMATE DECREASED
--- NOTE | 2019-09-19 19:42 | PN ---
Progress Note, Physician History of Present Illness: Continues to have SOB with minimal exertion and LE edema Hgb 5.4 today. denies melena, hematochezia, other bleeding. - Current Medication List Current Medications: Active Medications Alprazolam (Xanax -) 0.5 mg PO Q12H PRN PRN Reason: ANXIETY Last Admin: 09/18/19 21:00 Dose: 0.5 mg Furosemide (Lasix Injection -) 60 mg IVPB BID@0600,1400 [facility] Last Admin: 09/19/19 17:40 Dose: Not Given Levothyroxine Sodium (Synthroid -) 50 mcg PO DAILY@0700 [facility] Last Admin: 09/19/19 06:20 Dose: 50 mcg Oxycodone HCl (Roxicodone -) 5 mg PO Q6H PRN PRN Reason: PAIN LEVEL 6-10 Last Admin: 09/19/19 08:10 Dose: 5 mg Pantoprazole Sodium (Protonix -) 40 mg PO DAILY [facility] Last Admin: 09/19/19 11:02 Dose: 40 mg Potassium Chloride (K-Dur -) 20 meq PO DAILY [facility] Last Admin: 09/19/19 11:01 Dose: 20 meq Propranolol HCl (Inderal La -) 60 mg PO DAILY [facility] Last Admin: 09/19/19 11:01 Dose: 60 mg - Objective Vital Signs: Vital Signs Temperature 97.7 F 09/19/19 18:00 Pulse Rate 94 H 09/19/19 18:00 Respiratory Rate 20 09/19/19 18:00 Blood Pressure 140/83 09/19/19 18:00 O2 Sat by Pulse Oximetry (%) 98 09/19/19 09:00 Constitutional: Yes: No Distress, Calm Eyes: Yes: Conjunctiva Clear Cardiovascular: Yes: Regular Rate and Rhythm Respiratory: Yes: Regular, Rales Edema: LLE: 2+, RLE: 2+ Labs: CBC, BMP 09/19/19 18:15 09/19/19 06:00 Assessment/Plan 69F with cholangiocarcinoma on carbo/gem admitted with fluid overload. On albumin and lasix, still significantly overloaded Downtrending counts likely 2/2 chemo. Hgb 5.4 (?real value given response to 9.8 after 2 u prbc). No obvious e/o bleeding. Monitor Hgb closely Will continue to follow
[2019-09-19] MEDS: ALPRAZolam 0.25 MG TABLET PO PRN (19:56)
--- NOTE | 2019-09-19 22:34 | PN ---
Progress Note (short form) - Note Progress Note: 1. fluid overload 2. HTN 3. HLD 4. poorly differentiated carcinoma on biopsy of 11cm left lobe of the liver mass 5. hypothyroidism 6. elevated LDH 7. leukocytosis Current Medications Alprazolam (Xanax -) 0.5 mg PO Q12H PRN PRN Reason: ANXIETY Last Admin: 09/19/19 19:56 Dose: 0.5 mg Furosemide (Lasix Injection -) 60 mg IVPB BID@0600,1400 [facility] Last Admin: 09/19/19 17:40 Dose: Not Given Levothyroxine Sodium (Synthroid -) 50 mcg PO DAILY@0700 [facility] Last Admin: 09/19/19 06:20 Dose: 50 mcg Oxycodone HCl (Roxicodone -) 5 mg PO Q6H PRN PRN Reason: PAIN LEVEL 6-10 Last Admin: 09/19/19 08:10 Dose: 5 mg Pantoprazole Sodium (Protonix -) 40 mg PO DAILY [facility] Last Admin: 09/19/19 11:02 Dose: 40 mg Potassium Chloride (K-Dur -) 20 meq PO DAILY [facility] Last Admin: 09/19/19 11:01 Dose: 20 meq Propranolol HCl (Inderal La -) 60 mg PO DAILY [facility] Last Admin: 09/19/19 11:01 Dose: 60 mg Last Vital Signs Temp Pulse Resp BP Pulse Ox 98.6 F 98 H 20 128/84 97 09/19/19 20:03 09/19/19 20:03 09/19/19 20:05 09/19/19 20:03 09/19/19 20:05 Lungs clear Heart reg Abd distended ext marked edema CBC, BMP 09/19/19 18:15 09/19/19 06:00 CBC, BMP 09/18/19 06:30 09/18/19 06:30 prerenal anasarca s/p h/h drop- transfused BP low- will hold off lasix albumin afternoon dose resume lasix albumin in am
[2019-09-20] MEDS: LEVOTHYROXINE NA 50 MCG TABLET (FP) PO SCH (06:33)
[2019-09-20 08:44] LABS: BASO % 0.2 % (0-2.0); EOS % 0.1 % (0-4.5); HEMOGLOBIN 10.8 GM/dL (10.7-15.3); LYMPH % 7.1 % (8-40); MCH 29.4 pg (25.7-33.7); MCHC 32.8 g/dl (32.0-36.0); MEAN CELL VOLUME 89.6 fl (80-96); MEAN PLT VOLUME 9.7 fl (7.5-11.1); MONO % 8.1 % (3.8-10.2); NEUT % 84.5 % (42.8-82.8); PLATELET COUNT 49 K/MM3 (134-434); RBC 3.68 M/mm3 (3.60-5.2); RDW 15.7 % (11.6-15.6); WHITE BLOOD COUNT 27.4 K/mm3 (4.0-10.0)
[2019-09-20 09:08] LABS: ALBUMIN 2.9 g/dl (3.4-5.0); BILIRUBIN,TOTAL 1.1 mg/dL (0.2-1); BLOOD UREA NITROGEN 30.4 mg/dL (7-18); CALCIUM 9.2 mg/dL (8.5-10.1); CREATININE 0.8 mg/dL (0.55-1.3); POTASSIUM 4.1 mmol/L (3.5-5.1); TOT PROT 5.7 g/dl (6.4-8.2)
[2019-09-20] MEDS: ALPRAZolam 0.25 MG TABLET PO PRN ×2 (09:53→20:22)
[2019-09-20] MEDS: POTASSIUM CHLORIDE TABS 20 MEQ TABLET.ER (FP) PO SCH (09:53)
[2019-09-20] MEDS: FUROSEMIDE 40 MG/4 ML INJECTABLE VIAL IVPB SCH ×3 (09:53→14:59)
[2019-09-20] MEDS: PANTOPRAZOLE 40 MG TABLET (FP) PO SCH (09:53)
[2019-09-20] MEDS ORDERED: DEXAMETHASONE SODIUM PHOSPHATE 12 MG in SODIUM CHLORIDE 50 ML IVPB ONE (10:00)
[2019-09-20] MEDS ORDERED: PALONOSETRON HCL 0.25 MG/5 ML VIAL IVPUSH ONE (10:00)
[2019-09-20] MEDS ORDERED: FOSAPREPITANT DIMEGLUMINE 150 MG in SODIUM CHLORIDE 150 ML IVPB ONE (10:00)
[2019-09-20] MEDS ORDERED: SODIUM CHLORIDE IV ONE (10:30)
[2019-09-20] MEDS ORDERED: GEMCITABINE HCL IV ONE (10:30)
[2019-09-20 10:38] LABS: ANISOCYTOSIS 0; MACROCYTOSIS 0; PLATELET ESTIMATE DECREASED
--- NOTE | 2019-09-20 15:17 | PN ---
Progress Note, Physician History of Present Illness: Pt seen and examined at bedside. She is awake and alert. She does not feel that her edema is improved. She denies shortness of breath. - Current Medication List Current Medications: Active Medications Alprazolam (Xanax -) 0.5 mg PO Q12H PRN PRN Reason: ANXIETY Last Admin: 09/20/19 09:53 Dose: 0.5 mg Furosemide (Lasix Injection -) 60 mg IVPB BID@0600,1400 [facility] Last Admin: 09/20/19 14:59 Dose: 60 mg Levothyroxine Sodium (Synthroid -) 50 mcg PO DAILY@0700 [facility] Last Admin: 09/20/19 06:33 Dose: 50 mcg Oxycodone HCl (Roxicodone -) 5 mg PO Q6H PRN PRN Reason: PAIN LEVEL 6-10 Last Admin: 09/19/19 08:10 Dose: 5 mg Pantoprazole Sodium (Protonix -) 40 mg PO DAILY [facility] Last Admin: 09/20/19 09:53 Dose: 40 mg Potassium Chloride (K-Dur -) 20 meq PO DAILY [facility] Last Admin: 09/20/19 09:53 Dose: 20 meq Propranolol HCl (Inderal La -) 60 mg PO DAILY [facility] Last Admin: 09/20/19 09:53 Dose: 60 mg - Objective Vital Signs: Vital Signs Temperature 97.7 F 09/20/19 10:00 Pulse Rate 99 H 09/20/19 14:00 Respiratory Rate 20 09/20/19 14:00 Blood Pressure 122/67 09/20/19 14:00 O2 Sat by Pulse Oximetry (%) 100 09/20/19 09:00 Constitutional: Yes: Calm Eyes: Yes: Conjunctiva Clear HENT: Yes: Atraumatic Neck: Yes: Supple Cardiovascular: Yes: S1, S2 Respiratory: Yes: CTA Bilaterally Gastrointestinal: Yes: Soft Edema: Yes Edema: LLE: 3+, RLE: 3+ Neurological: Yes: Oriented Psychiatric: Yes: Oriented Labs: CBC, BMP 09/20/19 07:45 09/20/19 07:45 Problem List - Problems (1) Fluid overload Code(s): E87.70 - FLUID OVERLOAD, UNSPECIFIED Assessment/Plan Current Medications Generic Name Dose Route Start Last Admin Trade Name Freq PRN Reason Stop Dose Admin Albumin Human 25 gm 09/20/19 15:14 Albumin Human 25% IVPB 09/20/19 15:15 ONCE ONE Alprazolam 0.5 mg 09/17/19 17:40 09/20/19 09:53 Xanax - PO 0.5 mg Q12H PRN Administration ANXIETY Furosemide 60 mg 09/19/19 07:51 09/20/19 14:59 Lasix Injection - IVPB 60 mg BID@0600,1400 [facility] Administration Levothyroxine Sodium 50 mcg 09/18/19 07:00 09/20/19 06:33 Synthroid - PO 50 mcg DAILY@0700 [facility] Administration Oxycodone HCl 5 mg 09/19/19 08:02 09/19/19 08:10 Roxicodone - PO 5 mg Q6H PRN Administration PAIN LEVEL 6-10 Pantoprazole Sodium 40 mg 09/18/19 10:00 09/20/19 09:53 Protonix - PO 40 mg DAILY [facility] Administration Potassium Chloride 20 meq 09/18/19 10:00 09/20/19 09:53 K-Dur - PO 20 meq DAILY [facility] Administration Propranolol HCl 60 mg 09/17/19 15:15 09/20/19 09:53 Inderal La - PO 60 mg DAILY [facility] Administration Impression 1. fluid overload 2. HTN 3. HLD 4. poorly differentiated carcinoma on biopsy of 11cm left lobe of the liver mass 5. hypothyroidism 6. elevated LDH 7. leukocytosis Plan - cont lasix, asked pt not to skip doses - cont albumine - monitor input and output - keep net negative or she will not loose - check daily weights - monitor renal function
[2019-09-20 16:03] VITALS: BMI 40.8
[2019-09-20] MEDS ORDERED: ALBUMIN HUMAN 25% 12.5 GM/50 ML VIAL IVPB ONE (16:15)
[2019-09-20] MEDS ORDERED: LOPERAMIDE HCL 2 MG CAPSULE PO PRN (18:42)
--- NOTE | 2019-09-20 18:44 | PN ---
Progress Note (short form) - Note Progress Note: Patient seen and examined Feels fatigued. Last Vital Signs Temp Pulse Resp BP Pulse Ox 98.3 F 98 H 20 135/73 100 09/20/19 18:00 09/20/19 18:00 09/20/19 18:00 09/20/19 18:00 09/20/19 09:00 Cor: RSR, No murmurs, No gallops Lungs: Clear to P&A Abd: Soft, Normal bowel sounds, No organomegaly Ext:2+ edema b/l Skin: LLE erythema Active Medications Generic Name Dose Route Start Last Admin Trade Name Freq PRN Reason Stop Dose Admin Alprazolam 0.5 mg 09/17/19 17:40 09/20/19 09:53 Xanax - PO 0.5 mg Q12H PRN Administration ANXIETY Furosemide 60 mg 09/19/19 07:51 09/20/19 14:59 Lasix Injection - IVPB 60 mg BID@0600,1400 [facility] Administration Levothyroxine Sodium 50 mcg 09/18/19 07:00 09/20/19 06:33 Synthroid - PO 50 mcg DAILY@0700 [facility] Administration Loperamide HCl 2 mg 09/20/19 18:42 09/20/19 18:50 Imodium - PO 2 mg Q6H PRN Administration DIARRHEA Oxycodone HCl 5 mg 09/19/19 08:02 09/19/19 08:10 Roxicodone - PO 5 mg Q6H PRN Administration PAIN LEVEL 6-10 Pantoprazole Sodium 40 mg 09/18/19 10:00 09/20/19 09:53 Protonix - PO 40 mg DAILY [facility] Administration Potassium Chloride 20 meq 09/18/19 10:00 09/20/19 09:53 K-Dur - PO 20 meq DAILY [facility] Administration Propranolol HCl 60 mg 09/17/19 15:15 09/20/19 09:53 Inderal La - PO 60 mg DAILY [facility] Administration A/P 69 y/o patient with cholangiocarcinoma, C2 D8 gemzar-oxaliplatin s/p PRBCs-- 2units Gemzar held D8 due to thrombocytopenia Lower extremity edema-- on albumin and lasix will request ID consult --? cellulitis Lt. leg ( was on recent levaquin for 7 days upuntil 09/18 for klebsiella UTI) will check echo D/C planning tomorrow for holidays
[2019-09-20] MEDS: oxyCODONE HCL 5 MG TABLET PO PRN (20:22)
[2019-09-21] MEDS: LEVOTHYROXINE NA 50 MCG TABLET (FP) PO SCH (06:45)
[2019-09-21] MEDS: FUROSEMIDE 40 MG/4 ML INJECTABLE VIAL IVPB SCH (07:07)
--- NOTE | 2019-09-21 09:45 | DS ---
Physical Exam: SUBJECTIVE: Patient seen and examined at bed side , breathing is better today after she received 2 units PRBCS . still have lower ext edema . pt to be discharged today and return on for therapy. pt made aware of plan , pt made aware to return to the hospital if symptoms worsen. OBJECTIVE: Vital Signs Period Temp Pulse Resp BP Sys/Ortega Pulse Ox Last 24 Hr 97.7 F-98.4 F 95-105 20-20 122-136/67-78 100 PHYSICAL EXAM GENERAL: The patient is awake, alert, and fully oriented,palor HEAD: Normal with no signs of trauma. EYES: PERRL, extraocular movements intact, sclera anicteric, palor ENT: moist mucous membranes. NECK: supple. LUNGS: Breath sounds equal, clear to auscultation bilaterally, no wheezes, no crackles, no accessory muscle use. HEART: Regular rate and rhythm, S1, S2 without murmur, rub or gallop. ABDOMEN: obese, Soft, nontender, nondistended, normoactive bowel sounds, no guarding, EXTREMITIES: 2+ pulses, warm, well-perfused, +2 edema. B/L , left LE anterior aspect erythema (cellulitis ) NEUROLOGICAL: Cranial nerves II through XII grossly intact. Normal speech, gait not observed. PSYCH: Normal mood, normal affect. SKIN: Warm, dry, normal turgor, LABS Laboratory Results - last 24 hr 09/20/19 07:45 Neutrophils % (Manual) 84.0 H Band Neutrophils % 1.0 Lymphocytes % (Manual) 6.0 L D Monocytes % (Manual) 3 L Eosinophils % (Manual) 0.0 Basophils % (Manual) 1.0 D Myelocytes % (Man) 0 D Promyelocytes % (Man) 2 D Blast Cells % (Manual) 0 Nucleated RBC % 0 Metamyelocytes 2 D Hypochromia 0 Platelet Estimate Decreased Polychromasia 0 Poikilocytosis 0 Anisocytosis 0 Microcytosis 0 Macrocytosis 0 CBC, BMP 09/20/19 07:45 09/20/19 07:45 HOSPITAL COURSE: Date of Admission:09/18/19 Date of Discharge: 09/21/19 69 y/o patient with cholangiocarcinoma, C2 D8 gemzar-oxaliplatin s/p PRBCs-- 2units Gemzar held D8 due to thrombocytopenia Lower extremity edema-- on albumin and lasix will request ID consult --? cellulitis Lt. leg ( was on recent levaquin for 7 days upuntil 09/18 for klebsiella UTI) will check echo Minutes to complete discharge: 45 Discharge Summary Problems reviewed: Yes Reason For Visit: ABD PAIN Current Active Problems Fluid overload (Acute) Condition: Improved - Instructions Diet, Activity, Other Instructions: you presented to [facility] due to worsening lower extremity swelling an shortness of breath ,you have been diuresis and recieved 2 units of blood you will be send home with 40 mg lasix daily you also start on new medication for anxiety by Dr Josette Dominguez (0.5 mg twice daily as needed )and prescription send to your pharmacy. please use Loperamid 2 mg oral every 6 hours as needed for diarrhea please use protonix 40 mg daily for acid reflux you develop cellulites on lower extremities and you started on kelfex 500 mg every 8 hours for 10 days nephrology input please resume propranolol , K-dur and synthroid as before admission if you develop fever, chills, sever chest pain or worsening of shortness of breath please call 911 and return to emergency room Disposition: HOME - Home Medications Comprehensive Discharge Medication List: Ambulatory Orders Levothyroxine [Synthroid -] 50 mcg PO DAILY 03/04/19 propRANOLol HCL [Inderal LA -] 60 mg PO DAILY 03/04/19 Furosemide [Lasix] 20 mg PO DAILY 09/13/19 Potassium Chloride [K-Dur -] 20 meq PO DAILY 09/13/19 This patient is new to me today: No Emergency Visit: No Critical Care patient: No - Discharge Referral Referred to [facility] Med P.C[facility] No ATTENDING PHYSICIAN STATEMENT I saw and evaluated the patient. I reviewed the resident's note and discussed the case with the resident. I agree with the resident's findings and plan as documented. SUBJECTIVE: OBJECTIVE: ASSESSMENT AND PLAN:
[2019-09-21] MEDS: POTASSIUM CHLORIDE TABS 20 MEQ TABLET.ER (FP) PO SCH (10:02)
[2019-09-21] MEDS: PANTOPRAZOLE 40 MG TABLET (FP) PO SCH (10:02)
--- NOTE | 2019-09-21 11:49 | PN ---
Progress Note (short form) - Note Progress Note: ID CONSULT DICTATED CELLULITIS L LE KLEBSIELLA UTI METASTATIC CA KEFLEX 500MG PO Q8H ELEVATION
[2019-09-21] MEDS ORDERED: CEPHALEXIN MONOHYDRATE 500 MG CAPSULE (UD) PO SCH (12:00)
[2019-09-21 12:22] LABS: BASO % 0.1 % (0-2.0); EOS % 0.2 % (0-4.5); HEMATOCRIT 32.6 % (32.4-45.2); HEMOGLOBIN 10.8 GM/dL (10.7-15.3); LYMPH % 9.5 % (8-40); MCH 29.8 pg (25.7-33.7); MCHC 33.2 g/dl (32.0-36.0); MEAN CELL VOLUME 89.5 fl (80-96); MEAN PLT VOLUME 9.9 fl (7.5-11.1); MONO % 9.3 % (3.8-10.2); NEUT % 80.9 % (42.8-82.8); PLATELET COUNT 78 K/MM3 (134-434); RBC 3.64 M/mm3 (3.60-5.2); WHITE BLOOD COUNT 21.8 K/mm3 (4.0-10.0)
[2019-09-21 12:56] LABS: EPI CELLS 1.8 /HPF (0-5/HPF); HYALINE CASTS 13 /lpf (0-8); URINE APPEARANCE TURBID; URINE BILIRUBIN NEGATIVE (NEGATIVE); URINE COLOR YELLOW; URINE GLUCOSE (UA) NEGATIVE (NEGATIVE); URINE KETONE NEGATIVE (NEGATIVE); URINE LEUK ESTERASE TRACE (NEGATIVE); URINE NITRITE NEGATIVE (NEGATIVE); URINE PROTEIN 1+ (NEGATIVE); URINE RBC 393 /hpf (0-4); URINE UROBILINOGEN 0.2 mg/dL (0.2-1.0); URINE WBC 10 /hpf (0-5)
[2019-09-21 13:04] LABS: ANISOCYTOSIS 0; MACROCYTOSIS 0; PLATELET ESTIMATE DECREASED
[2019-09-21 13:08] LABS: BILIRUBIN,TOTAL 1.1 mg/dL (0.2-1); CALCIUM 8.9 mg/dL (8.5-10.1); CREATININE 0.9 mg/dL (0.55-1.3); POTASSIUM 3.7 mmol/L (3.5-5.1); TOT PROT 5.9 g/dl (6.4-8.2)
[2019-09-21 14:11] LABS: URINE CRYSTALS FEW /hpf
[2019-09-21 14:24] VITALS: BP 131/66; PULSE 96; TEMP 98.2
--- NOTE | 2019-09-21 15:45 | PN ---
Progress Note, Physician History of Present Illness: Pt seen and examined at bedside. She denies shortness of breath. She is eager to go home. - Current Medication List Current Medications: Active Medications Alprazolam (Xanax -) 0.5 mg PO Q12H PRN PRN Reason: ANXIETY Last Admin: 09/20/19 20:22 Dose: 0.5 mg Cephalexin HCl (Keflex -) 500 mg PO TID [facility] Furosemide (Lasix -) 40 mg PO DAILY [facility] Levothyroxine Sodium (Synthroid -) 50 mcg PO DAILY@0700 [facility] Last Admin: 09/21/19 06:45 Dose: 50 mcg Loperamide HCl (Imodium -) 2 mg PO Q6H PRN PRN Reason: DIARRHEA Last Admin: 09/20/19 18:50 Dose: 2 mg Oxycodone HCl (Roxicodone -) 5 mg PO Q6H PRN PRN Reason: PAIN LEVEL 6-10 Last Admin: 09/20/19 20:22 Dose: 5 mg Pantoprazole Sodium (Protonix -) 40 mg PO DAILY [facility] Last Admin: 09/20/19 09:53 Dose: 40 mg Potassium Chloride (K-Dur -) 20 meq PO DAILY [facility] Last Admin: 09/20/19 09:53 Dose: 20 meq Propranolol HCl (Inderal La -) 60 mg PO DAILY [facility] Last Admin: 09/20/19 09:53 Dose: 60 mg - Objective Vital Signs: Vital Signs Temperature 98.2 F 09/21/19 14:06 Pulse Rate 96 H 09/21/19 14:06 Respiratory Rate 20 09/21/19 14:06 Blood Pressure 131/66 09/21/19 14:06 O2 Sat by Pulse Oximetry (%) 100 09/20/19 21:00 Constitutional: Yes: Calm Eyes: Yes: Conjunctiva Clear HENT: Yes: Atraumatic Neck: Yes: Supple Cardiovascular: Yes: S1, S2 Respiratory: Yes: CTA Bilaterally Gastrointestinal: Yes: Soft Edema: Yes Edema: LLE: 2+, RLE: 2+ Integumentary: Yes: Erythema Neurological: Yes: Oriented Psychiatric: Yes: Oriented Labs: CBC, BMP 09/21/19 11:58 09/21/19 11:58 Problem List - Problems (1) Fluid overload Code(s): E87.70 - FLUID OVERLOAD, UNSPECIFIED Assessment/Plan Current Medications Generic Name Dose Route Start Last Admin Trade Name Freq PRN Reason Stop Dose Admin Alprazolam 0.5 mg 09/17/19 17:40 09/20/19 20:22 Xanax - PO 0.5 mg Q12H PRN Administration ANXIETY Cephalexin HCl 500 mg 09/21/19 12:00 Keflex - PO TID [facility] Furosemide 40 mg 09/22/19 10:00 Lasix - PO DAILY [facility] Levothyroxine Sodium 50 mcg 09/18/19 07:00 09/21/19 06:45 Synthroid - PO 50 mcg DAILY@0700 [facility] Administration Loperamide HCl 2 mg 09/20/19 18:42 09/20/19 18:50 Imodium - PO 2 mg Q6H PRN Administration DIARRHEA Oxycodone HCl 5 mg 09/19/19 08:02 09/20/19 20:22 Roxicodone - PO 5 mg Q6H PRN Administration PAIN LEVEL 6-10 Pantoprazole Sodium 40 mg 09/18/19 10:00 09/20/19 09:53 Protonix - PO 40 mg DAILY [facility] Administration Potassium Chloride 20 meq 09/18/19 10:00 09/20/19 09:53 K-Dur - PO 20 meq DAILY [facility] Administration Propranolol HCl 60 mg 09/17/19 15:15 09/20/19 09:53 Inderal La - PO 60 mg DAILY [facility] Administration Impression 1. fluid overload 2. HTN 3. HLD 4. poorly differentiated carcinoma on biopsy of 11cm left lobe of the liver mass 5. hypothyroidism 6. elevated LDH 7. leukocytosis 8. UTI Plan - can do 40 mg of lasix daily - abx per ID - will get labs checked on - monitor renal function
--- NOTE | 2019-09-21 18:42 | PN ---
Progress Note (short form) - Note Progress Note: Patient seen prior to discharge. 69 year old female with cholangioca and liver mets. Admitted with fluid overload, with ascites and LE edema. Seen by renal and placed on albumin and diuretics. Last Vital Signs Temp Pulse Resp BP Pulse Ox 98.2 F 96 H 20 131/66 99 09/21/19 14:06 09/21/19 14:06 09/21/19 14:06 09/21/19 14:06 09/21/19 09:00 No ictierus Lungs with decreased breath sounds bilaterally Cor-RSR Abdomen- distended, ascites LE - cellulitis with erythema bilaterally L>R CBC, BMP 09/21/19 11:58 09/21/19 11:58 Current Medications Generic Name Dose Route Start Last Admin Trade Name Freq PRN Reason Stop Dose Admin Alprazolam 0.5 mg 09/17/19 17:40 09/20/19 20:22 Xanax - PO 0.5 mg Q12H PRN Administration ANXIETY Cephalexin HCl 500 mg 09/21/19 12:00 09/21/19 12:00 Keflex - PO 500 mg TID [facility] Administration Furosemide 40 mg 09/22/19 10:00 Lasix - PO DAILY [facility] Levothyroxine Sodium 50 mcg 09/18/19 07:00 09/21/19 06:45 Synthroid - PO 50 mcg DAILY@0700 [facility] Administration Loperamide HCl 2 mg 09/20/19 18:42 09/20/19 18:50 Imodium - PO 2 mg Q6H PRN Administration DIARRHEA Oxycodone HCl 5 mg 09/19/19 08:02 09/20/19 20:22 Roxicodone - PO 5 mg Q6H PRN Administration PAIN LEVEL 6-10 Pantoprazole Sodium 40 mg 09/18/19 10:00 09/21/19 10:02 Protonix - PO 40 mg DAILY [facility] Administration Potassium Chloride 20 meq 09/18/19 10:00 09/21/19 10:02 K-Dur - PO 20 meq DAILY [facility] Administration Propranolol HCl 60 mg 09/17/19 15:15 09/21/19 10:02 Inderal La - PO 60 mg DAILY [facility] Administration Impression: Cholangioca Liver mets Ascites/Fluid overload/LE edema LE cellulitis Plan: Outpatient folow up On keflex for cellulitis Lasix. Resume chemotheray next few days pending status of cellulitis. y
[2019-09-22] MEDS ORDERED: FUROSEMIDE 40 MG TABLET (FP) PO SCH (10:00)
--- NOTE | 2019-09-24 19:00 | CONS ---
DATE OF CONSULTATION: DATE OF DICTATION: 09/21/2019 INFECTIOUS DISEASE CONSULTATION HISTORY OF PRESENT ILLNESS: The patient is a 69-year-old female who was evaluated for cellulitis of the left lower extremity. She was admitted to the hospital on September 17, 2019, with increasing lower extremity swelling. She was treated for fluid overload. Over the past several days, she is noted to have worsening erythema and warmth of the left pretibial area. She was recently treated for a klebsiella urinary tract infection with Levaquin. The patient denies any traumatic injury. No complaints of leg pain. She denies any associated fever or chills. PAST MEDICAL HISTORY: Positive for cholangiocarcinoma with liver metastases status post chemotherapy. Recent cycle of chemotherapy. Hypertension, hyperlipidemia, hypothyroidism. ALLERGIES: No known allergies. MEDICATION: Include Xanax, dexamethasone, Lasix, gemcitabine, Synthroid, Protonix, Inderal. SOCIAL HISTORY: Former smoker. SYSTEMS REVIEW: Neurologic: No loss of consciousness, seizure activity, focal weakness. Cardiac: Negative chest pain or palpitations. Respiratory: Negative cough or sputum production. Gastrointestinal: Negative vomiting or diarrhea. Genitourinary: Negative for urinary tract infection. LABORATORY DATA: White count 27.4, 84 neutrophils, 7 lymphocytes, 8 monocytes. Hematocrit 33.0, platelet count 49. BUN 30, creatinine 0.8. Urinalysis 2+ leukocyte esterase, 20 to 47 white cells. Urine culture: klebsiella. Creatinine 0.8. PHYSICAL EXAMINATION: General: On physical examination, she is out of bed to chair, not acutely toxic appearing, afebrile. Vital signs: Temperature 98.4, blood pressure 126/73, pulse 105 regular, respirations 20 per minute. HEENT: Sclerae anicteric. Cardiovascular: Heart sounds S1, S2. Lungs: Clear. Abdomen: Soft, nontender. Extremities: Positive for edema. There is confluent erythema and warmth present over the left pretibial area. The area is nontender. There is no fluctuance or , no lymphangitic streaking. IMPRESSION: 1. Cellulitis left lower extremity. 2. Klebsiella urinary tract infection. 3. Metastatic cholangiocarcinoma. Advise Keflex 500 mg p.o. q.8 h. for 7 to 10 days. Elevation. Will follow. Thank you for the kind referral. CASIE MEDINA M.D. [id number]
== END 2019-09-21 20:43 | disposition home or self-care (01) | DRG 641 ==
LOC: JONCNONCHE 09:52 → J7W 10:13
PROVIDERS: ADMIT Internal Medicine Hematology & Oncology; ATTEND Internal Medicine Hematology & Oncology
DX: E87.70 Fluid overload, unspecified (principal); C22.1 Intrahepatic bile duct carcinoma; L03.116 Cellulitis of left lower limb; N39.0 Urinary tract infection, site not specified; R18.8 Other ascites; I10 Essential (primary) hypertension; E78.5 Hyperlipidemia, unspecified; E03.9 Hypothyroidism, unspecified; D72.829 Elevated white blood cell count, unspecified; F41.9 Anxiety disorder, unspecified; Z87.891 Personal history of nicotine dependence; B95.61 Methicillin susceptible Staphylococcus aureus infection as the cause of diseases classified elsewhere
CPT/HCPCS: 36415; 36430; 36511; 71045-TC-FY; 76705-TC; 80053; 81003; 82140; 83615; 83735; 85025; 86301; 86850; 86900; 86901; 86922; 87040; 87086; 87186; 93976; P9038; P9047; P9058

== ENCOUNTER 2019-09-23 08:02 | Inpatient (IN) | payer OTHER ==
[~2019-09-23 08:02] MED LIST: DEXAMETHASONE SODIUM PHOSPHATE 12 MG in SODIUM CHLORIDE 50 ML IVPB ONE; FOSAPREPITANT DIMEGLUMINE 150 MG in SODIUM CHLORIDE 150 ML IVPB ONE; GEMCITABINE HCL IV ONE; PALONOSETRON HCL 0.25 MG/5 ML VIAL IVPUSH ONE; SODIUM CHLORIDE IV ONE
[2019-09-23] MEDS ORDERED: ALTEPLASE 2 MG VIAL CVP ONE (10:00)
[2019-09-23 12:39] LABS: BASO % 0.2 % (0-2.0); EOS % 0.1 % (0-4.5); HEMATOCRIT 32.4 % (32.4-45.2); HEMOGLOBIN 10.7 GM/dL (10.7-15.3); LYMPH % 8.3 % (8-40); MCH 29.8 pg (25.7-33.7); MEAN CELL VOLUME 90.3 fl (80-96); MEAN PLT VOLUME 9.4 fl (7.5-11.1); MONO % 8.6 % (3.8-10.2); NEUT % 82.8 % (42.8-82.8); PLATELET COUNT 155 K/MM3 (134-434); RBC 3.59 M/mm3 (3.60-5.2); RDW 16.1 % (11.6-15.6); WHITE BLOOD COUNT 20.6 K/mm3 (4.0-10.0)
[2019-09-23 13:02] LABS: ALBUMIN 2.6 g/dl (3.4-5.0); BILIRUBIN,TOTAL 0.9 mg/dL (0.2-1); BLOOD UREA NITROGEN 29.5 mg/dL (7-18); CALCIUM 8.9 mg/dL (8.5-10.1); CREATININE 0.8 mg/dL (0.55-1.3); POTASSIUM 3.6 mmol/L (3.5-5.1); TOT PROT 5.5 g/dl (6.4-8.2)
[2019-09-23 13:33] LABS: ANISOCYTOSIS 0; MACROCYTOSIS 0; PLATELET ESTIMATE NORMAL
[2019-09-23] MEDS ORDERED: DEXAMETHASONE SODIUM PHOSPHATE 12 MG in SODIUM CHLORIDE 50 ML IVPB ONE (14:15)
[2019-09-23] MEDS ORDERED: PALONOSETRON HCL 0.25 MG/5 ML VIAL IVPUSH ONE (14:15)
[2019-09-23] MEDS ORDERED: SODIUM CHLORIDE IV ONE (14:45)
[2019-09-23] MEDS ORDERED: GEMCITABINE HCL IV ONE (14:45)
[2019-09-23] MEDS ORDERED: DEXTROSE 5%-WATER 100 ML IVPB ONE (15:56)
[2019-09-23] MEDS: CEFTRIAXONE 2 GM in DEXTROSE 5%-WATER 100 ML IVPB SCH (16:00)
--- NOTE | 2019-09-23 16:02 | CONSULT ---
Consult Consult Specialty:: Nephrology Reason for Consultation:: fluid overload - History of Present Illness Chief Complaint: edema and cellulitis History of Present Illness: Pt was discharged on keflex. She complains of worsening lower ext erythema and edema. - History Source History Provided By: Patient - Past Medical History Cardio/Vascular: Yes: HTN, Hyperlipdemia Renal/: Yes: Renal Inusuff Endocrine: Yes: Hypothyroidism - Alcohol/Substance Use Hx Alcohol Use: No - Smoking History Smoking history: Former smoker Have you smoked in the past 12 months: No Aproximately how many cigarettes per day: 0 If you are a former smoker, when did you quit?: 1994 Home Medications - Allergies Allergies/Adverse Reactions: Allergies Allergy/AdvReac Type Severity Reaction Status Date / Time No Known Drug Allergies Allergy Verified 08/25/19 13:07 - Home Medications Home Medications: Ambulatory Orders Levothyroxine [Synthroid -] 50 mcg PO DAILY 03/04/19 propRANOLol HCL [Inderal LA -] 60 mg PO DAILY 03/04/19 Potassium Chloride [K-Dur -] 20 meq PO DAILY 09/13/19 Alprazolam [Xanax] 0.5 mg PO Q12H PRN tablet MDD 2 09/21/19 Cephalexin Monohydrate [Keflex -] 500 mg PO TID 10 Days #30 capsule 09/21/19 Furosemide [Lasix -] 40 mg PO DAILY #30 tablet 09/21/19 Loperamide HCl [Imodium -] 2 mg PO Q6H PRN 30 Days capsule MDD 4 09/21/19 Pantoprazole Sodium [Protonix -] 40 mg PO DAILY #30 tablet.ec 09/21/19 oxyCODONE HCL [Roxicodone -] 5 mg PO Q6H PRN tablet MDD 4 09/21/19 Family Medical History Family History: Denies Review of Systems - Review of Systems Neck: reports: No Symptoms Cardiovascular: reports: Edema Gastrointestinal: reports: No Symptoms Genitourinary: reports: No Symptoms Neurological: reports: No Symptoms Endocrine: reports: No Symptoms Hematology/Lymphatic: reports: No Symptoms Physical Exam Constitutional: Yes: Calm Eyes: Yes: Conjunctiva Clear HENT: Yes: Atraumatic Neck: Yes: Supple Cardiovascular: Yes: S1, S2 Respiratory: Yes: CTA Bilaterally Gastrointestinal: Yes: Soft Edema: Yes Edema: LLE: 2+, RLE: 2+ Integumentary: Yes: Erythema Neurological: Yes: Oriented Psychiatric: Yes: Oriented Labs: CBC, BMP 09/23/19 11:52 09/23/19 11:52 Assessment/Plan Current Medications Generic Name Dose Route Start Last Admin Trade Name Freq PRN Reason Stop Dose Admin Vancomycin HCl 1,000 mg in 250 mls @ 166.667 mls/hr 09/23/19 13:00 Vancomycin (Pre-Docked) IVPB 0100,1300 [facility] Protocol Ceftriaxone Sodium 2 gm/ 100 mls @ 100 mls/hr 09/23/19 13:00 09/23/19 16:00 Dextrose IVPB 100 mls/hr DAILY [facility] Administration Protocol Impression 1. fluid overload 2. HTN 3. HLD 4. poorly differentiated carcinoma on biopsy of 11cm left lobe of the liver mass 5. hypothyroidism 6. elevated LDH 7. leukocytosis 8. UTI 9. cellulitis Plan - lasix for edema - abx per ID - oncology follow up - encourage po intake - monitor renal function
[2019-09-23] MEDS: VANCOMYCIN 1 GRAM (PRE-DOCKED) 1,000 MG/250 ML BAG IVPB SCH (16:33)
[2019-09-23] MEDS ORDERED: FUROSEMIDE 40 MG/4 ML INJECTABLE VIAL IVPUSH ONE ×2 (17:38)
[2019-09-23] MEDS ORDERED: ALPRAZolam 0.25 MG TABLET PO PRN (19:07)
[2019-09-23] MEDS ORDERED: oxyCODONE HCL 5 MG TABLET PO PRN (19:08)
--- NOTE | 2019-09-23 19:32 | HP ---
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/oxaliplatin Patient with cellulitis over her lower extremities, dysuria No fever/chills/cough/shortness of breath Last Vital Signs Temp Pulse Resp BP Pulse Ox 97.9 F 108 H 20 128/68 09/23/19 10:42 09/23/19 10:42 09/23/19 10:42 09/23/19 10:42 Cor: RSR, No murmurs, No gallops Lungs: Clear to P&A Abd: Soft, Normal bowel sounds, No organomegaly Ext:3+ edema/erythema Abnormal Lab Results 09/23/19 09/23/19 11:52 11:52 WBC 20.6 H RBC 3.59 L RDW 16.1 H Absolute Neuts (auto) 17.1 H Nucleated RBC % 2 H BUN 29.5 H AST 82 H Alkaline Phosphatase 311 H Total Protein 5.5 L Albumin 2.6 L Home Medication List Medication Instructions Recorded Confirmed Type Levothyroxine [Synthroid -] 50 mcg PO DAILY 03/04/19 09/18/19 History propRANOLol HCL [Inderal LA -] 60 mg PO DAILY 03/04/19 09/18/19 History Potassium Chloride [K-Dur -] 20 meq PO DAILY 09/13/19 09/18/19 History Active Medications Generic Name Dose Route Start Last Admin Trade Name Freq PRN Reason Stop Dose Admin Alprazolam 0.5 mg 09/24/19 10:00 Xanax - PO Q24H PRN ANXIETY Vancomycin HCl 1,000 mg in 250 mls @ 166.667 mls/hr 09/23/19 13:00 09/23/19 16:33 Vancomycin (Pre-Docked) IVPB 166.667 mls/hr 0100,1300 G[facility]EL Administration Protocol Ceftriaxone Sodium 2 gm/ 100 mls @ 100 mls/hr 09/23/19 13:00 09/23/19 16:00 Dextrose IVPB 100 mls/hr DAILY GABRIEL Administration Protocol Levothyroxine Sodium 50 mcg 09/24/19 07:00 Synthroid - PO DAILY@0700 G[facility]EL Oxycodone HCl 5 mg 09/23/19 19:29 Roxicodone - PO Q8H PRN PAIN LEVEL 7 - 10 Pantoprazole Sodium 40 mg 09/24/19 10:00 Protonix - PO DAILY [facility]EL Propranolol HCl 60 mg 09/24/19 10:00 Inderal La - PO DAILY [facility] Zolpidem Tartrate 5 mg 09/23/19 22:00 Ambien - PO HS PRN INSOMNIA A/P 69 y/o patient with gallbladder vs intrahepatic cholangiocarcinoma, C2 D11 gem/ ox. D8 gemzar held due to G3 thrombocytopenia Thrombocytopenia recovered. dosed gemzar today Also with cellulitis-- to start vanco/rocephin per ID Fluid overload ? systemic inflammaory response -- lasix per renal Will reimage early next week
[2019-09-23] MEDS: ZOLPIDEM TARTRATE 5 MG TABLET PO PRN (20:19)
[2019-09-23] MEDS: oxyCODONE HCL 5 MG TABLET PO PRN (20:19)
[2019-09-23] MEDS ORDERED: MELATONIN 5 MG TABLETS PO PRN (22:00)
[2019-09-24] MEDS: VANCOMYCIN 1 GRAM (PRE-DOCKED) 1,000 MG/250 ML BAG IVPB SCH ×2 (01:09→13:39)
[2019-09-24 04:26] VITALS: BMI 91.5
[2019-09-24] MEDS: LEVOTHYROXINE NA 50 MCG TABLET (FP) PO SCH (06:21)
[2019-09-24 08:19] LABS: BASO % 0.3 % (0-2.0); EOS % 0.1 % (0-4.5); HEMATOCRIT 28.1 % (32.4-45.2); HEMOGLOBIN 9.1 GM/dL (10.7-15.3); LYMPH % 5.8 % (8-40); MCH 29.5 pg (25.7-33.7); MCHC 32.2 g/dl (32.0-36.0); MEAN CELL VOLUME 91.6 fl (80-96); MONO % 5.9 % (3.8-10.2); NEUT % 87.9 % (42.8-82.8); PLATELET COUNT 171 K/MM3 (134-434); RBC 3.07 M/mm3 (3.60-5.2); RDW 16.5 % (11.6-15.6); WHITE BLOOD COUNT 17.4 K/mm3 (4.0-10.0)
[2019-09-24 08:38] LABS: ALBUMIN 2.4 g/dl (3.4-5.0); BILIRUBIN,TOTAL 0.8 mg/dL (0.2-1); BLOOD UREA NITROGEN 30.9 mg/dL (7-18); CALCIUM 8.3 mg/dL (8.5-10.1); CREATININE 0.7 mg/dL (0.55-1.3); POTASSIUM 3.8 mmol/L (3.5-5.1); TOT PROT 5.3 g/dl (6.4-8.2)
[2019-09-24] MEDS ORDERED: DEXTROSE 5%-WATER 100 ML IVPB ONE (09:24)
[2019-09-24] MEDS ORDERED: FUROSEMIDE 40 MG/4 ML INJECTABLE VIAL IVPUSH ONE (09:30)
[2019-09-24] MEDS: CEFTRIAXONE 2 GM in DEXTROSE 5%-WATER 100 ML IVPB SCH (09:54)
[2019-09-24] MEDS: ENOXAPARIN NA (PORCINE) 40 MG/0.4 ML DISP.SYRIN SQ SCH (09:58)
[2019-09-24] MEDS: PANTOPRAZOLE 40 MG TABLET (FP) PO SCH (09:59)
--- NOTE | 2019-09-24 12:41 | PN ---
Progress Note, Physician Chief Complaint: OOB IN CHAIR C/O LE PAIN NO C/O FEVER/ CHILLS BC NO GROWTH - Current Medication List Current Medications: Active Medications Alprazolam (Xanax -) 0.5 mg PO Q24H PRN PRN Reason: ANXIETY Enoxaparin Sodium (Lovenox -) 40 mg SQ DAILY [facility] Last Admin: 09/24/19 09:58 Dose: 40 mg Vancomycin HCl (Vancomycin (Pre-Docked)) 1,000 mg in 250 mls @ 166.667 mls/hr IVPB 0100,1300 [facility]; Protocol Last Admin: 09/24/19 01:09 Dose: 166.667 mls/hr Ceftriaxone Sodium 2 gm/ (Dextrose) 100 mls @ 100 mls/hr IVPB DAILY [facility]; Protocol Last Admin: 09/24/19 09:54 Dose: 100 mls/hr Levothyroxine Sodium (Synthroid -) 50 mcg PO DAILY@0700 [facility] Last Admin: 09/24/19 06:21 Dose: 50 mcg Oxycodone HCl (Roxicodone -) 5 mg PO Q8H PRN PRN Reason: PAIN LEVEL 7 - 10 Last Admin: 09/23/19 20:19 Dose: 5 mg Pantoprazole Sodium (Protonix -) 40 mg PO DAILY [facility] Last Admin: 09/24/19 09:59 Dose: 40 mg Propranolol HCl (Inderal La -) 60 mg PO DAILY [facility] Last Admin: 09/24/19 10:06 Dose: 60 mg Zolpidem Tartrate (Ambien -) 5 mg PO HS PRN PRN Reason: INSOMNIA Last Admin: 09/23/19 20:19 Dose: 5 mg - Objective Vital Signs: Vital Signs Temperature 98.4 F 09/24/19 06:38 Pulse Rate 106 H 09/24/19 06:38 Respiratory Rate 19 09/24/19 06:38 Blood Pressure 137/67 09/24/19 06:38 O2 Sat by Pulse Oximetry (%) 96 09/23/19 21:00 Constitutional: Yes: No Distress Cardiovascular: Yes: Regular Rate and Rhythm, S1, S2 Respiratory: Yes: CTA Bilaterally Gastrointestinal: Yes: Normal Bowel Sounds, Soft. No: Tenderness Edema: Yes Edema: LLE: 3+, RLE: 3+ Integumentary: Yes: Other (+ ERYTHEMA/ WARMTH PRETIBIAL AREAS L > R) Labs: CBC, BMP 09/24/19 06:40 09/24/19 06:40 Assessment/Plan BILATERAL LE CELLULITIS METASTATIC CARCINOMA CONTINUE CEFTRIAXONE/ VANCOMYCIN
--- NOTE | 2019-09-24 13:35 | CON.GI ---
Consult Consult Specialty:: Gastroenterology Referred by:: Dr Josette Walden Reason for Consultation:: poorly differentiated liver cancer - History of Present Illness Chief Complaint: lower extremity cellulitis History of Present Illness: 69F has been found to have a 11cm hepatic poorly differentiated carcinoma for which she has been receiving Gemzar. She is receiving her 3rd dose. She developed marker lower extremity edema with cellulitis. Her most recent sonogram reveals only a slight amount of new ascites. Despite her malignancy she reports that she has gained 25lbs which she reports as all of it by lower extremity edema which appears to be refractory. Her last studies have exclude portal thrombosis. She does have abdominal bloating but claims to be moving her bowels daily and satisfactorily. I last saw Kylie in the office on 11/30/15 when she had a recurrent bout with diverticulitis despite having had a laparoscopic sigmoid resection. Her last colonoscopy was performed on 05/06/12 which revealed an ischemic colitis vs smoldering diverticulitis. - History Source History Provided By: Patient, Medical Record Limitations to Obtaining History: No Limitations - Past Medical History Cardio/Vascular: Yes: HTN, Hyperlipdemia Gastrointestinal: Yes: Diverticulitis Hepatobiliary: Yes: Cholelithiasis Renal/: Yes: Renal Inusuff Endocrine: Yes: Hypothyroidism - Past Surgical History Past Surgical History: Yes: Appendectomy, Breast Biopsy (benign left breast biopsy), Colectomy (laparoscopic sigmoid resection ), Colonoscopy, Laminectomy - Alcohol/Substance Use Hx Alcohol Use: No History of Substance Use: reports: None - Smoking History Smoking history: Former smoker Have you smoked in the past 12 months: No Aproximately how many cigarettes per day: 0 If you are a former smoker, when did you quit?: 1994 - Social History Usual Living Arrangement: Alone ADL: Independent 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 Place of : [facility] Home Medications - Allergies Allergies/Adverse Reactions: Allergies Allergy/AdvReac Type Severity Reaction Status Date / Time No Known Drug Allergies Allergy Verified 08/25/19 13:07 - Home Medications Home Medications: Ambulatory Orders Levothyroxine [Synthroid -] 50 mcg PO DAILY 03/04/19 propRANOLol HCL [Inderal LA -] 60 mg PO DAILY 03/04/19 Potassium Chloride [K-Dur -] 20 meq PO DAILY 09/13/19 Alprazolam [Xanax] 0.5 mg PO Q12H PRN tablet MDD 2 09/21/19 Cephalexin Monohydrate [Keflex -] 500 mg PO TID 10 Days #30 capsule 09/21/19 Furosemide [Lasix -] 40 mg PO DAILY #30 tablet 09/21/19 Loperamide HCl [Imodium -] 2 mg PO Q6H PRN 30 Days capsule MDD 4 09/21/19 Pantoprazole Sodium [Protonix -] 40 mg PO DAILY #30 tablet.ec 09/21/19 oxyCODONE HCL [Roxicodone -] 5 mg PO Q6H PRN tablet MDD 4 09/21/19 Family Medical History Family Hx Cardiac Disorders: Father Family Hx Diabetes: Father ( age 68) Other Family History: Mother alive @ 98 Review of Systems - Review of Systems Constitutional: reports: Loss of Appetite, Malaise, Weakness Eyes: reports: No Symptoms HENT: reports: No Symptoms Neck: reports: No Symptoms Cardiovascular: reports: No Symptoms Respiratory: reports: No Symptoms Gastrointestinal: reports: Bloating Musculoskeletal: reports: Back Pain Integumentary: reports: Erythema (of lower extremities) Psychiatric: reports: Anxiety Physical Exam-GI Vital Signs: Vital Signs Temperature 98.0 F 09/24/19 10:00 Pulse Rate 117 H 09/24/19 10:00 Respiratory Rate 18 09/24/19 10:00 Blood Pressure 139/90 09/24/19 10:00 O2 Sat by Pulse Oximetry (%) 96 09/23/19 21:00 CBC,CMP WBC 17.4 K/mm3 (4.0-10.0) H 09/24/19 06:40 RBC 3.07 M/mm3 (3.60-5.2) L 09/24/19 06:40 Hgb 9.1 GM/dL (10.7-15.3) L 09/24/19 06:40 Hct 28.1 % (32.4-45.2) L 09/24/19 06:40 MCV 91.6 fl (80-96) 09/24/19 06:40 MCH 29.5 pg (25.7-33.7) 09/24/19 06:40 MCHC 32.2 g/dl (32.0-36.0) 09/24/19 06:40 RDW 16.5 % (11.6-15.6) H 09/24/19 06:40 Plt Count 171 K/MM3 (134-434) 09/24/19 06:40 MPV 10.0 fl (7.5-11.1) 09/24/19 06:40 Absolute Neuts (auto) 15.3 K/mm3 (1.5-8.0) H 09/24/19 06:40 Neutrophils % 87.9 % (42.8-82.8) H 09/24/19 06:40 Neutrophils % (Manual) 80.6 % (42.8-82.8) 09/23/19 11:52 Band Neutrophils % 0.0 % 09/23/19 11:52 Lymphocytes % 5.8 % (8-40) L D 09/24/19 06:40 Lymphocytes % (Manual) 10.2 % (8-40) D 09/23/19 11:52 Monocytes % 5.9 % (3.8-10.2) 09/24/19 06:40 Monocytes % (Manual) 7 % (3.8-10.2) 09/23/19 11:52 Eosinophils % 0.1 % (0-4.5) 09/24/19 06:40 Eosinophils % (Manual) 0.0 % (0-4.5) 09/23/19 11:52 Basophils % 0.3 % (0-2.0) 09/24/19 06:40 Basophils % (Manual) 0.0 % (0-2.0) 09/23/19 11:52 Myelocytes % (Man) 0 % (0-2) D 09/23/19 11:52 Promyelocytes % (Man) 0 % (0-2) 09/23/19 11:52 Blast Cells % (Manual) 0 % (0-0) 09/23/19 11:52 Nucleated RBC % 1 % (0-0) H 09/24/19 06:40 Metamyelocytes 0 % (0-2) D 09/23/19 11:52 Hypochromia 0 09/23/19 11:52 Platelet Estimate Normal 09/23/19 11:52 Polychromasia 0 09/23/19 11:52 Poikilocytosis 1+ 09/23/19 11:52 Anisocytosis 0 09/23/19 11:52 Microcytosis 0 09/23/19 11:52 Macrocytosis 0 09/23/19 11:52 Schistocytes 1+ 09/23/19 11:52 Sodium 138 mmol/L (136-145) 09/24/19 06:40 Potassium 3.8 mmol/L (3.5-5.1) 09/24/19 06:40 Chloride 101 mmol/L (98-107) 09/24/19 06:40 Carbon Dioxide 23 mmol/L (21-32) 09/24/19 06:40 Anion Gap 13 MMOL/L (8-16) 09/24/19 06:40 BUN 30.9 mg/dL (7-18) H 09/24/19 06:40 Creatinine 0.7 mg/dL (0.55-1.3) 09/24/19 06:40 Est GFR (CKD-EPI)AfAm 101.74 09/24/19 06:40 Est GFR (CKD-EPI)NonAf 87.78 09/24/19 06:40 Random Glucose 81 mg/dL (74-106) 09/24/19 06:40 Calcium 8.3 mg/dL (8.5-10.1) L 09/24/19 06:40 Magnesium 2.0 mg/dL (1.8-2.4) 09/23/19 11:52 Total Bilirubin 0.8 mg/dL (0.2-1) 09/24/19 06:40 AST 74 U/L (15-37) H 09/24/19 06:40 ALT 19 U/L (13-61) 09/24/19 06:40 Alkaline Phosphatase 296 U/L (45-117) H 09/24/19 06:40 Total Protein 5.3 g/dl (6.4-8.2) L 09/24/19 06:40 Albumin 2.4 g/dl (3.4-5.0) L 09/24/19 06:40 Current Medications Generic Name Dose Route Start Last Admin Trade Name Freq PRN Reason Stop Dose Admin Alprazolam 0.5 mg 09/24/19 10:00 Xanax - PO Q24H PRN ANXIETY Enoxaparin Sodium 40 mg 09/24/19 10:00 09/24/19 09:58 Lovenox - SQ 40 mg DAILY [facility] Administration Vancomycin HCl 1,000 mg in 250 mls @ 166.667 mls/hr 09/23/19 13:00 09/24/19 13:39 Vancomycin (Pre-Docked) IVPB 166.667 mls/hr 0100,1300 G[facility]RIEL Administration Protocol Ceftriaxone Sodium 2 gm/ 100 mls @ 100 mls/hr 09/23/19 13:00 09/24/19 09:54 Dextrose IVPB 100 mls/hr DAILY [facility]RIEL Administration Protocol Levothyroxine Sodium 50 mcg 09/24/19 07:00 09/24/19 06:21 Synthroid - PO 50 mcg DAILY@0700 G[facility]RIEL Administration Oxycodone HCl 5 mg 09/23/19 19:29 09/23/19 20:19 Roxicodone - PO 5 mg Q8H PRN Administration PAIN LEVEL 7 - 10 Pantoprazole Sodium 40 mg 09/24/19 10:00 09/24/19 09:59 Protonix - PO 40 mg DAILY [facility]RIEL Administration Propranolol HCl 60 mg 09/24/19 10:00 09/24/19 10:06 Inderal La - PO 60 mg DAILY [facility]EL Administration Zolpidem Tartrate 5 mg 09/23/19 22:00 09/23/19 20:19 Ambien - PO 5 mg HS PRN Administration INSOMNIA Constitutional: Yes: Anxious Eyes: Yes: Conjunctiva Clear HENT: Yes: Atraumatic Neck: Yes: Supple Cardiovascular: Yes: Regular Rate and Rhythm Respiratory: Yes: CTA Bilaterally Gastrointestinal Inspection: Yes: Scars (healed RLQ and laparoscopic incisions) ...Auscultate: Yes: Normoactive Bowel Sounds ...Palpate: Yes: Soft, Other (nontender) ...Percussion: Yes: Tympanitic ...Rectal Exam: Yes: Deferred (declined) Edema: LLE: 4+, RLE: 4+ Integumentary: Yes: Erythema (of distal aspect of both lower extremities with RLE depressed area) Neurological: Yes: Alert, Oriented Labs: CBC, BMP 09/24/19 06:40 09/24/19 06:40 Laboratory Tests 05/28/12 07/30/19 09/18/19 07:40 11:09 06:30 Ferritin 55.1 Tumor Marker AFP 3.9 Carcinoembryonic Ag 1.1 CA 19-9 Antigen 494 H Imaging - Results Cat Scan: Report Reviewed ( Final Report CT ABDOMEN & PELVIS CT WITH CONTR Show Printer-Friendly Version Patient Name: Juan Saba : Jul-1950 ID: [id number] Study Date: 29-Jul-2019 12:33 Senaitangelica Trujillo Name: JUAN SABA DEPARTMENT OF RADIOLOGY Phys: Ayush Kennedy MD : [birth year] Age: 68 Sex: F [facility] Acct: [id number] Loc : [facility] [address] [facility] Exam Date: 07/29/19 Status: REG REF [place] [address] Unit Number: [id number] EXAM#: TYPE/EXAM: RESULT: [id number] CT/ABDOMEN PELVIS CT WITH CONTR HISTORY PROVIDED: Right hepatic mass. Sequential axial images were obtained from the domes of the diaphragms through the symphysis pubis following the administration of both oral and intravenous contrast material. The lung bases are clear. There is a large, poorly defined heterogeneous mass dominantly within the left lobe of the liver, but also extending into the right lobe. The mass measures approximately 11.4 x 10.3 x 9.3 cm. The masses strongly suspicious for malignancy, possibly a primary hepatocellular carcinoma. No additional hepatic masses are identified. The liver is enlarged measuring 20.4 cm in craniocaudad dimension. It is hypodense in texture consistent with diffuse fatty infiltration. The portal vein is patent. There is the suggestion of a filling defect within the proximal portal vein. This could be flow related, however. Gallstones are identified within the gallbladder. There is no evidence of intra or extrahepatic biliary ductal dilatation. The spleen, pancreas, adrenal glands and kidneys demonstrate no significant abnormalities. There is a 3.5 cm right renal cyst. There is no evidence of intra-abdominal or retroperitoneal lymphadenopathy or fluid collections. Examination of the pelvis demonstrates no evidence of pelvic masses, fluid collections or lymphadenopathy. There is a ventral hernia within the anterior pelvic wall which does contain nonobstructed small bowel loops. There is no evidence of acute bony pathology. IMPRESSION: 1. Large , heterogeneous liver mass strongly suspicious for malignancy, most likely a primary hepatocellular carcinoma. 2. Possible nonobstructing thrombus within the main portal vein. 3. Hepatomegaly with diffuse infiltration of the liver. 4. Cholelithiasis. 5. No evidence of metastatic disease or acute pathology within the abdomen or pelvis. Please see above discussion. Reported By: Denys Cm MD 07/30/19 1019 Ayush Kennedy Technologist : Derek Lawton Transcribed Date/Time: 07/30/19 101 Business Data Analyst: Denys Cm Printed Date/Time: By: Signed by: Denys Cm Signed on: 30-Jul-2019 10:20) Problem List - Problems (2) Edema leg Code(s): R60.0 - LOCALIZED EDEMA (3) Cellulitis of extremity Code(s): L03.119 - CELLULITIS OF UNSPECIFIED PART OF LIMB (4) History of diverticulitis of colon Code(s): Z87.19 - PERSONAL HISTORY OF OTHER DISEASES OF THE DIGESTIVE SYSTEM (5) History of appendectomy Code(s): Z90.49 - ACQUIRED ABSENCE OF OTHER SPECIFIED PARTS OF DIGESTIVE TRACT (6) History of partial colectomy Code(s): Z90.49 - ACQUIRED ABSENCE OF OTHER SPECIFIED PARTS OF DIGESTIVE TRACT (7) Hypothyroid Code(s): E03.9 - HYPOTHYROIDISM, UNSPECIFIED (8) Hypertension Code(s): I10 - ESSENTIAL (PRIMARY) HYPERTENSION (9) Hyperlipemia Code(s): E78.5 - HYPERLIPIDEMIA, UNSPECIFIED (10) Cholelithiasis Code(s): K80.20 - CALCULUS OF GALLBLADDER W/O CHOLECYSTITIS W/O OBSTRUCTION Assessment/Plan Assessment: - Advanced left lobe liver neoplasm extending into the right lobe. The elevated Ca 19.9 and normal AFP suggest cholangiocarcinoma rather than hepatocellular carcinoma but are not conclusive. Metastases from an undetermined primary cannot be excluded ie. pancreas. She has no signs of liver failure and there are no signs of portal or hepatic vein obstruction. - I suspect that the bloating reflects fecal retention but Kylie insists that this is not the case. I will review her upcoming CT scan to look for fecal retention Plan: - We discussed vascular consulation with Dr Stearns but he will be away until 10/04/19. She wishes to wait until he returns. Will order LE duplex scan Dr. Williamson will be covering this weekend
--- NOTE | 2019-09-24 15:36 | PN ---
Progress Note, Physician History of Present Illness: Pt seen and examined at bedside. She complains of lower ext edema. - Current Medication List Current Medications: Active Medications Alprazolam (Xanax -) 0.5 mg PO Q24H PRN PRN Reason: ANXIETY Enoxaparin Sodium (Lovenox -) 40 mg SQ DAILY [facility] Last Admin: 09/24/19 09:58 Dose: 40 mg Furosemide (Lasix Injection -) 40 mg IVPUSH DAILY [facility] Vancomycin HCl (Vancomycin (Pre-Docked)) 1,000 mg in 250 mls @ 166.667 mls/hr IVPB 0100,1300 G[facility]RIEL; Protocol Last Admin: 09/24/19 13:39 Dose: 166.667 mls/hr Ceftriaxone Sodium 2 gm/ (Dextrose) 100 mls @ 100 mls/hr IVPB DAILY [facility]; Protocol Last Admin: 09/24/19 09:54 Dose: 100 mls/hr Levothyroxine Sodium (Synthroid -) 50 mcg PO DAILY@0700 [facility]EL Last Admin: 09/24/19 06:21 Dose: 50 mcg Oxycodone HCl (Roxicodone -) 5 mg PO Q8H PRN PRN Reason: PAIN LEVEL 7 - 10 Last Admin: 09/23/19 20:19 Dose: 5 mg Pantoprazole Sodium (Protonix -) 40 mg PO DAILY [facility] Last Admin: 09/24/19 09:59 Dose: 40 mg Propranolol HCl (Inderal La -) 60 mg PO DAILY [facility] Last Admin: 09/24/19 10:06 Dose: 60 mg Zolpidem Tartrate (Ambien -) 5 mg PO HS PRN PRN Reason: INSOMNIA Last Admin: 09/23/19 20:19 Dose: 5 mg - Objective Vital Signs: Vital Signs Temperature 98.0 F 09/24/19 14:51 Pulse Rate 101 H 09/24/19 14:51 Respiratory Rate 18 09/24/19 14:51 Blood Pressure 105/55 L 09/24/19 14:51 O2 Sat by Pulse Oximetry (%) 96 09/23/19 21:00 Constitutional: Yes: Calm Eyes: Yes: Conjunctiva Clear HENT: Yes: Atraumatic Cardiovascular: Yes: S1, S2 Respiratory: Yes: CTA Bilaterally Gastrointestinal: Yes: Soft Genitourinary: Yes: WNL Musculoskeletal: Yes: WNL Edema: Yes Edema: LLE: 2+, RLE: 2+ Integumentary: Yes: Erythema Neurological: Yes: Oriented Psychiatric: Yes: Oriented Labs: CBC, BMP 09/24/19 06:40 09/24/19 06:40 Assessment/Plan Current Medications Generic Name Dose Route Start Last Admin Trade Name Freq PRN Reason Stop Dose Admin Alprazolam 0.5 mg 09/24/19 10:00 Xanax - PO Q24H PRN ANXIETY Enoxaparin Sodium 40 mg 09/24/19 10:00 09/24/19 09:58 Lovenox - SQ 40 mg DAILY GABRIEL Administration Furosemide 40 mg 09/25/19 10:00 Lasix Injection - IVPUSH DAILY [facility]RIEL Vancomycin HCl 1,000 mg in 250 mls @ 166.667 mls/hr 09/23/19 13:00 09/24/19 13:39 Vancomycin (Pre-Docked) IVPB 166.667 mls/hr 0100,1300 GABRIEL Administration Protocol Ceftriaxone Sodium 2 gm/ 100 mls @ 100 mls/hr 09/23/19 13:00 09/24/19 09:54 Dextrose IVPB 100 mls/hr DAILY GABRIEL Administration Protocol Levothyroxine Sodium 50 mcg 09/24/19 07:00 09/24/19 06:21 Synthroid - PO 50 mcg DAILY@0700 G[facility]RIEL Administration Oxycodone HCl 5 mg 09/23/19 19:29 09/23/19 20:19 Roxicodone - PO 5 mg Q8H PRN Administration PAIN LEVEL 7 - 10 Pantoprazole Sodium 40 mg 09/24/19 10:00 09/24/19 09:59 Protonix - PO 40 mg DAILY [facility]RIEL Administration Propranolol HCl 60 mg 09/24/19 10:00 09/24/19 10:06 Inderal La - PO 60 mg DAILY [facility]EL Administration Zolpidem Tartrate 5 mg 09/23/19 22:00 09/23/19 20:19 Ambien - PO 5 mg HS PRN Administration INSOMNIA Impression 1. fluid overload 2. HTN 3. HLD 4. poorly differentiated carcinoma on biopsy of 11cm left lobe of the liver mass 5. hypothyroidism 6. elevated LDH 7. leukocytosis 8. UTI 9. cellulitis Plan - cont lasix - monitor renal function - cont abx - monitor in and out
--- NOTE | 2019-09-24 18:00 | PN ---
Progress Note (short form) - Note Progress Note: Patient seen and examined Feels fatigued Last Vital Signs Temp Pulse Resp BP Pulse Ox 98.0 F 101 H 18 105/55 L 96 09/24/19 14:51 09/24/19 14:51 09/24/19 14:51 09/24/19 14:51 09/23/19 21:00 Cor: RSR, No murmurs, No gallops Lungs: Clear to P&A Abd: Soft, Normal bowel sounds, No organomegaly Ext:No significant edema Labs/Meds reviewed A/P 69 y/o patient with gallbladder vs intrahepatic cholangiocarcinoma, C2 D11 gem/ ox. D8 gemzar held due to G3 thrombocytopenia Thrombocytopenia recovered. dosed gemzar today Also with cellulitis-- to start vanco/rocephin per ID Fluid overload ? systemic inflammaory response -- lasix per renal Will reimage early next week
--- NOTE | 2019-09-24 18:58 | CONS ---
DATE OF CONSULTATION: DATE OF DICTATION: 09/23/2019 INFECTIOUS DISEASE CONSULTATION HISTORY OF PRESENT ILLNESS: The patient is a 69-year-old female with a history of metastatic cholangiocarcinoma evaluated for worsening cellulitis of the left lower extremity. The patient was admitted to the hospital from September 18 through with increasing lower extremity edema and shortness of breath. On September 21, 2019, I saw her after she had developed erythema of the left pretibial area. She was discharged home with oral Keflex. Despite the Keflex she now has worsening erythema and warmth of the left pretibial area. It appears to have extended beyond the previous margins. She denies any pain. No wound drainage. No lymphangitis. She denies any associated fever or chills. PAST MEDICAL HISTORY: Positive for cholangiocarcinoma with the metastases to the liver, status post 2 cycles of chemotherapy, hypertension, hyperlipidemia, hypothyroidism, history of klebsiella urinary tract infection. ALLERGIES: No known allergies. MEDICATIONS: Include Keflex, Lasix, Protonix, Synthroid, propranolol. 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 She is a former smoker. SYSTEMS REVIEW: Neurologic: No loss of consciousness, seizure activity, focal weakness. Cardiac: Negative chest pain or palpitations. Respiratory: Negative shortness of breath or cough. Gastrointestinal: Negative vomiting or diarrhea. Genitourinary: Negative fever, urinary tract infection. LABORATORY DATA: White count 20.6, hematocrit 32.4, platelets 155. Creatinine 0.9. Total bilirubin 1.1, alkaline phosphatase 339, AST 92. Urinalysis negative. Cultures are pending. PHYSICAL EXAMINATION: General: She is fatigued, weak appearing. Vital Signs: Temperature 98.2, blood pressure 131/66, pulse 96, regular, respirations 20 per minute. HEENT: Sclerae are anicteric. Cardiac: Heart sounds S1, S2. Lungs: Clear. Abdomen: Soft, nontender. Extremities: Examination of the lower extremities, bilateral lower extremity edema 3+, confluent erythema present. The left pretibial area appears intensely erythematous and warm to touch. There is no crepitus, no weeping, no lymphangitic streaking. IMPRESSION: 1. Worsening left lower extremity cellulitis. 2. Bilateral lower extremity edema. 3. Metastatic cholangiocarcinoma. RECOMMENDATIONS: Await cultures. Empiric antibiotic coverage with vancomycin and ceftriaxone. I suspect some degree of leukocytosis that is steroid induced. Further recommendations pending cultures. Elevation of the lower extremities and diuretic therapy. Thank you for the kind referral. CASIE MEDINA M.D. [id number]
[2019-09-24] MEDS: ZOLPIDEM TARTRATE 5 MG TABLET PO PRN (21:00)
[2019-09-24] MEDS: ALPRAZolam 0.25 MG TABLET PO PRN (21:00)
[2019-09-25] MEDS: VANCOMYCIN 1 GRAM (PRE-DOCKED) 1,000 MG/250 ML BAG IVPB SCH ×2 (01:33→14:34)
[2019-09-25] MEDS: oxyCODONE HCL 5 MG TABLET PO PRN ×2 (04:01→21:02)
[2019-09-25] MEDS: LEVOTHYROXINE NA 50 MCG TABLET (FP) PO SCH (06:05)
[2019-09-25 08:56] LABS: BASO % 0.5 % (0-2.0); EOS % 0.1 % (0-4.5); HEMATOCRIT 30.3 % (32.4-45.2); HEMOGLOBIN 10.1 GM/dL (10.7-15.3); LYMPH % 4.5 % (8-40); MCH 30.1 pg (25.7-33.7); MCHC 33.1 g/dl (32.0-36.0); MEAN PLT VOLUME 9.5 fl (7.5-11.1); NEUT % 93.9 % (42.8-82.8); PLATELET COUNT 193 K/MM3 (134-434); RBC 3.34 M/mm3 (3.60-5.2); RDW 16.4 % (11.6-15.6); WHITE BLOOD COUNT 17.3 K/mm3 (4.0-10.0)
[2019-09-25 09:24] LABS: ALBUMIN 2.4 g/dl (3.4-5.0); BILIRUBIN,TOTAL 1.3 mg/dL (0.2-1); BLOOD UREA NITROGEN 34.6 mg/dL (7-18); CALCIUM 8.2 mg/dL (8.5-10.1); CREATININE 0.8 mg/dL (0.55-1.3); POTASSIUM 3.8 mmol/L (3.5-5.1); TOT PROT 5.4 g/dl (6.4-8.2)
[2019-09-25] MEDS ORDERED: DEXTROSE 5%-WATER 100 ML IVPB ONE (09:46)
--- NOTE | 2019-09-25 10:22 | PN ---
Progress Note (short form) - Note Progress Note: RENAL Pt is awake and alert sitting up Last Vital Signs Temp Pulse Resp BP Pulse Ox 97.9 F 104 H 18 148/81 97 09/25/19 06:00 09/25/19 06:00 09/25/19 06:00 09/25/19 06:00 09/24/19 21:00 lungs decreased breath sounds at right base, left side is clear cvs s1s2 rr abd soft ext +edema and erythema neuro a+ox3 CBC, BMP 09/25/19 08:40 09/25/19 08:40 Current Medications Generic Name Dose Route Start Last Admin Trade Name Freq PRN Reason Stop Dose Admin Alprazolam 0.5 mg 09/24/19 10:00 09/24/19 21:00 Xanax - PO 0.5 mg Q24H PRN Administration ANXIETY Enoxaparin Sodium 40 mg 09/24/19 10:00 09/24/19 09:58 Lovenox - SQ 40 mg DAILY [facility]EL Administration Furosemide 40 mg 09/25/19 10:00 Lasix Injection - IVPUSH DAILY [facility] Vancomycin HCl 1,000 mg in 250 mls @ 166.667 mls/hr 09/23/19 13:00 09/25/19 01:33 Vancomycin (Pre-Docked) IVPB 166.667 mls/hr 0100,1300 [facility] Administration Protocol Ceftriaxone Sodium 2 gm/ 100 mls @ 100 mls/hr 09/23/19 13:00 09/24/19 09:54 Dextrose IVPB 100 mls/hr DAILY [facility]EL Administration Protocol Levothyroxine Sodium 50 mcg 09/24/19 07:00 09/25/19 06:05 Synthroid - PO 50 mcg DAILY@0700 [facility] Administration Oxycodone HCl 5 mg 09/23/19 19:29 09/25/19 04:01 Roxicodone - PO 5 mg Q8H PRN Administration PAIN LEVEL 7 - 10 Pantoprazole Sodium 40 mg 09/24/19 10:00 09/24/19 09:59 Protonix - PO 40 mg DAILY [facility]EL Administration Propranolol HCl 60 mg 09/24/19 10:00 09/24/19 10:06 Inderal La - PO 60 mg DAILY [facility]EL Administration Zolpidem Tartrate 5 mg 09/23/19 22:00 09/24/19 21:00 Ambien - PO 5 mg HS PRN Administration INSOMNIA Impression 1. fluid overload 2. HTN 3. HLD 4. poorly differentiated carcinoma on biopsy of 11cm left lobe of the liver mass 5. hypothyroidism 6. elevated LDH 7. leukocytosis 8. UTI 9. cellulitis Plan - cont lasix - monitor renal function - cont abx - monitor in and out -s/p chemo -add metolazone -monitor potassium
[2019-09-25] MEDS: ENOXAPARIN NA (PORCINE) 40 MG/0.4 ML DISP.SYRIN SQ SCH (10:25)
[2019-09-25] MEDS: CEFTRIAXONE 2 GM in DEXTROSE 5%-WATER 100 ML IVPB SCH (10:26)
[2019-09-25] MEDS: FUROSEMIDE 40 MG/4 ML INJECTABLE VIAL IVPUSH SCH (10:26)
[2019-09-25] MEDS: PANTOPRAZOLE 40 MG TABLET (FP) PO SCH (10:26)
--- NOTE | 2019-09-25 10:59 | PN ---
Progress Note (short form) - Note Progress Note: Patient seen in follow up. Out of bed, in wheelchair in solarium. No new complaints, but with depressed mood - having trouble coping psychologically with her circumstances. Diuresing. Started on abics for lower extermity redness - ? cellulitis.e Inpatient Meds reviewed. Current Medications Generic Name Dose Route Start Last Admin Trade Name Freq PRN Reason Stop Dose Admin Alprazolam 0.5 mg 09/24/19 10:00 09/24/19 21:00 Xanax - PO 0.5 mg Q24H PRN Administration ANXIETY Enoxaparin Sodium 40 mg 09/24/19 10:00 09/25/19 10:25 Lovenox - SQ 40 mg DAILY [facility] Administration Furosemide 40 mg 09/25/19 10:00 09/25/19 10:26 Lasix Injection - IVPUSH 40 mg DAILY [facility] Administration Vancomycin HCl 1,000 mg in 250 mls @ 166.667 mls/hr 09/23/19 13:00 09/25/19 01:33 Vancomycin (Pre-Docked) IVPB 166.667 mls/hr 0100,1300 [facility] Administration Protocol Ceftriaxone Sodium 2 gm/ 100 mls @ 100 mls/hr 09/23/19 13:00 09/25/19 10:26 Dextrose IVPB 100 mls/hr DAILY [facility] Administration Protocol Levothyroxine Sodium 50 mcg 09/24/19 07:00 09/25/19 06:05 Synthroid - PO 50 mcg DAILY@0700 [facility] Administration Metolazone 2.5 mg 09/25/19 10:30 Zaroxolyn - PO DAILY [facility] Oxycodone HCl 5 mg 09/23/19 19:29 09/25/19 04:01 Roxicodone - PO 5 mg Q8H PRN Administration PAIN LEVEL 7 - 10 Pantoprazole Sodium 40 mg 09/24/19 10:00 09/25/19 10:26 Protonix - PO 40 mg DAILY [facility] Administration Propranolol HCl 60 mg 09/24/19 10:00 09/25/19 10:26 Inderal La - PO 60 mg DAILY [facility] Administration Zolpidem Tartrate 5 mg 09/23/19 22:00 09/24/19 21:00 Ambien - PO 5 mg HS PRN Administration INSOMNIA On Examination: Last Vital Signs Temp Pulse Resp BP Pulse Ox 97.9 F 104 H 18 148/81 97 09/25/19 06:00 09/25/19 06:00 09/25/19 06:00 09/25/19 06:00 09/24/19 21:00 General: In no acute distress, sitting in wheelchair. Extremities: No pallor or icterus. Massive bilateral pedal edema, marked erythema both shins. No palpable lymphadenopathy. CVS: S1, S2, regular, no gallop or murmur. Chest: good air entry bilaterally, clear Abdomen: Non-distended. Neuro: Alert, oriented, non-focal. Labs: CBC, BMP 09/25/19 08:40 09/25/19 08:40 Assessment. Recently diagnosed cholangiocarcinoma - mid C2 gem/oxali - tolerating well. Fluid overload - with massive pedal edema - diuresing - IV lasix - continue - watch creat. Lower extermity erythema - trial of empiric Abics - ID following. CT pending - ?response to therapy. Agreeable (and willing) to initiation of an antidepressant. Will start an SSRI.
[2019-09-25] MEDS: METOLAZONE 2.5 MG TABLET (FP) PO SCH (11:00)
[2019-09-25 13:21] LABS: ANISOCYTOSIS 1+; MACROCYTOSIS 1+; PLATELET ESTIMATE NORMAL
--- NOTE | 2019-09-25 13:42 | PN ---
Progress Note (short form) - Note Progress Note: very tearful diuresing with iv lasix Vital Signs Period Temp Pulse Resp BP Sys/Ortega Pulse Ox Last 24 Hr 97.9 F-98.4 F 96-104 18-18 105-148/55-81 97 cor-rrr lungs decreased bs at bases abd soft,nt ext 3+edema erythema bilateral lower extremities CBC, BMP 09/25/19 08:40 09/25/19 08:40 Microbiology 09/23/19 11:48 Blood - Deric Cath Blood Culture - Preliminary NO GROWTH OBTAINED AFTER 48 HOURS, INCUBATION TO CONTINUE FOR 3 DAYS. 09/23/19 11:52 Blood - Deric Cath Blood Culture - Preliminary NO GROWTH OBTAINED AFTER 48 HOURS, INCUBATION TO CONTINUE FOR 3 DAYS. a/p bilateral cellulitis massive edema cholangiocarcinoma on chemo continue vancomycin and ceftriaxone check vancomycin trough
[2019-09-25] MEDS ORDERED: PT OWN MED DRAWER 7, Y5N ONE (14:05)
[2019-09-25] MEDS: ALPRAZolam 0.25 MG TABLET PO PRN (14:14)
[2019-09-25] MEDS: ZOLPIDEM TARTRATE 5 MG TABLET PO PRN (21:02)
[2019-09-25] MEDS ORDERED: ENOXAPARIN NA (PORCINE) 120 MG/0.8 ML DISP.SYRIN SQ SCH (22:15)
[2019-09-25] MEDS: ENOXAPARIN NA (PORCINE) 120 MG/0.8 ML DISP.SYRIN SQ SCH (22:37)
[2019-09-26] MEDS: VANCOMYCIN 1 GRAM (PRE-DOCKED) 1,000 MG/250 ML BAG IVPB SCH ×2 (01:58→14:45)
[2019-09-26] MEDS: LEVOTHYROXINE NA 50 MCG TABLET (FP) PO SCH (06:14)
[2019-09-26 06:43] LABS: HEMATOCRIT 27.6 % (32.4-45.2); HEMOGLOBIN 9.2 GM/dL (10.7-15.3); MCHC 33.3 g/dl (32.0-36.0); MEAN CELL VOLUME 90.2 fl (80-96); MEAN PLT VOLUME 9.2 fl (7.5-11.1); PLATELET COUNT 195 K/MM3 (134-434); RBC 3.06 M/mm3 (3.60-5.2); WHITE BLOOD COUNT 14.3 K/mm3 (4.0-10.0)
[2019-09-26 06:51] LABS: INR 1.28 (0.83-1.09); PROTHROMBIN TIME (PATIENT) 15.1 SEC (9.7-13.0)
[2019-09-26 06:54] LABS: ACTIVATED PTT 48.6 SECONDS (25.2-36.5)
[2019-09-26 07:08] LABS: ALBUMIN 2.3 g/dl (3.4-5.0); BILIRUBIN,TOTAL 1.3 mg/dL (0.2-1); BLOOD UREA NITROGEN 37.8 mg/dL (7-18); CREATININE 0.8 mg/dL (0.55-1.3); POTASSIUM 3.8 mmol/L (3.5-5.1); TOT PROT 5.3 g/dl (6.4-8.2)
[2019-09-26] MEDS ORDERED: SERTRALINE HCL 50 MG TABLET (FP) PO SCH (10:00)
[2019-09-26] MEDS: ENOXAPARIN NA (PORCINE) 120 MG/0.8 ML DISP.SYRIN SQ SCH ×2 (10:30→21:30)
[2019-09-26] MEDS: PANTOPRAZOLE 40 MG TABLET (FP) PO SCH (10:30)
[2019-09-26] MEDS: FUROSEMIDE 40 MG/4 ML INJECTABLE VIAL IVPUSH SCH (10:30)
[2019-09-26] MEDS: CEFTRIAXONE 2 GM in DEXTROSE 5%-WATER 100 ML IVPB SCH (10:35)
[2019-09-26] MEDS ORDERED: DEXTROSE 5%-WATER 100 ML IVPB ONE (10:40)
--- NOTE | 2019-09-26 11:49 | PN ---
Progress Note (short form) - Note Progress Note: RENAL Pt is awake and alert sitting up has been found to have a dvt Last Vital Signs Temp Pulse Resp BP Pulse Ox 97.9 F 96 H 20 125/64 98 09/26/19 06:00 09/26/19 06:00 09/26/19 06:00 09/26/19 06:00 09/25/19 21:00 lungs decreased breath sounds at right base, left side is clear cvs s1s2 rr abd soft ext +edema and erythema neuro a+ox3 Current Medications Generic Name Dose Route Start Last Admin Trade Name Freq PRN Reason Stop Dose Admin Alprazolam 0.5 mg 09/24/19 10:00 09/25/19 14:14 Xanax - PO 0.5 mg Q24H PRN Administration ANXIETY Enoxaparin Sodium 120 mg 09/25/19 22:15 09/25/19 22:37 Lovenox - SQ 120 mg BID [facility] Administration Furosemide 40 mg 09/25/19 10:00 09/25/19 10:26 Lasix Injection - IVPUSH 40 mg DAILY [facility]EL Administration Vancomycin HCl 1,000 mg in 250 mls @ 166.667 mls/hr 09/23/19 13:00 09/26/19 01:58 Vancomycin (Pre-Docked) IVPB 166.667 mls/hr 0100,1300 [facility] Administration Protocol Ceftriaxone Sodium 2 gm/ 100 mls @ 100 mls/hr 09/23/19 13:00 09/25/19 10:26 Dextrose IVPB 100 mls/hr DAILY [facility] Administration Protocol Levothyroxine Sodium 50 mcg 09/24/19 07:00 09/26/19 06:14 Synthroid - PO 50 mcg DAILY@0700 [facility] Administration Metolazone 2.5 mg 09/25/19 10:30 09/25/19 11:00 Zaroxolyn - PO 2.5 mg DAILY G[facility]EL Administration Oxycodone HCl 5 mg 09/23/19 19:29 09/25/19 21:02 Roxicodone - PO 5 mg Q8H PRN Administration PAIN LEVEL 7 - 10 Pantoprazole Sodium 40 mg 09/24/19 10:00 09/25/19 10:26 Protonix - PO 40 mg DAILY G[facility]EL Administration Propranolol HCl 60 mg 09/24/19 10:00 09/25/19 10:26 Inderal La - PO 60 mg DAILY G[facility]LE Administration Sertraline HCl 50 mg 09/26/19 10:00 Zoloft - PO DAILY G[facility] Zolpidem Tartrate 5 mg 09/23/19 22:00 09/25/19 21:02 Ambien - PO 5 mg HS PRN Administration INSOMNIA Impression 1. fluid overload 2. HTN 3. HLD 4. poorly differentiated carcinoma on biopsy of 11cm left lobe of the liver mass 5. hypothyroidism 6. elevated LDH 7. leukocytosis 8. UTI 9. cellulitis 10 dvt Plan - cont lasix - monitor renal function - cont abx - monitor in and out -s/p chemo -increase metolazone -monitor potassium while on zaroxolyn/furosemide - agree with enoxaparin MV
[2019-09-26] MEDS ORDERED: METOLAZONE 5 MG TABLET PO SCH (11:58)
--- NOTE | 2019-09-26 12:52 | PN ---
Progress Note (short form) - Note Progress Note: frequent stools now on lovenox for DVT Vital Signs Period Temp Pulse Resp BP Sys/Ortega Pulse Ox Last 24 Hr 97.8 F-98.6 F 95-97 20-20 125-134/64-88 98 cor-rrr lungs clear abd soft,nt ext bilateral edema 3+, bilateral erythema duplex bilateral DVT CBC, BMP 09/26/19 05:35 09/26/19 05:35 Microbiology 09/23/19 11:48 Blood - Deric Cath Blood Culture - Preliminary NO GROWTH OBTAINED AFTER 72 HOURS, INCUBATION TO CONTINUE FOR 2 DAYS. 09/23/19 11:52 Blood - Deric Cath Blood Culture - Preliminary NO GROWTH OBTAINED AFTER 72 HOURS, INCUBATION TO CONTINUE FOR 2 DAYS. 09/25/19 03:45 Urine - Urine Clean Catch Urine Culture - Final NO GROWTH OBTAINED a/p bilateral cellulitis bilateral DVT massive edema cholangiocarcinoma on chemo continue vancomycin and ceftriaxone check vancomycin trough today
[2019-09-26] MEDS ORDERED: LOPERAMIDE HCL 2 MG CAPSULE PO ONE (13:00)
[2019-09-26] MEDS: ONDANSETRON 8 MG TABLET (FP) PO PRN ×2 (14:20→21:30)
[2019-09-26] MEDS: METOLAZONE 2.5 MG TABLET (FP) PO SCH (19:25)
--- NOTE | 2019-09-26 23:00 | PN ---
Progress Note (short form) - Note Progress Note: Patient seen in follow up. Out of bed, in chair. Reports nausea since this morning. Doppler US yesterday revealed new R CFV DVT and L popliteal DVT - started on LMWH treatment dose. Started Zoloft. Inpatient Meds reviewed. Current Medications Alprazolam (Xanax -) 0.5 mg PO Q24H PRN PRN Reason: ANXIETY Last Admin: 09/25/19 14:14 Dose: 0.5 mg Enoxaparin Sodium (Lovenox -) 120 mg SQ BID [facility] Last Admin: 09/26/19 21:30 Dose: 120 mg Furosemide (Lasix Injection -) 40 mg IVPUSH DAILY [facility] Last Admin: 09/26/19 10:30 Dose: 40 mg Vancomycin HCl (Vancomycin (Pre-Docked)) 1,000 mg in 250 mls @ 166.667 mls/hr IVPB 0100,1300 [facility]; Protocol Last Admin: 09/26/19 14:45 Dose: 166.667 mls/hr Ceftriaxone Sodium 2 gm/ (Dextrose) 100 mls @ 100 mls/hr IVPB DAILY [facility]; Protocol Last Admin: 09/26/19 10:35 Dose: 100 mls/hr Levothyroxine Sodium (Synthroid -) 50 mcg PO DAILY@0700 [facility] Last Admin: 09/26/19 06:14 Dose: 50 mcg Loperamide HCl (Imodium -) 2 mg PO Q4H PRN PRN Reason: DIARRHEA Metolazone (Zaroxolyn -) 5 mg PO DAILY [facility] Ondansetron HCl (Zofran -) 8 mg PO Q8H PRN PRN Reason: NAUSEA Last Admin: 09/26/19 21:30 Dose: 8 mg Oxycodone HCl (Roxicodone -) 5 mg PO Q8H PRN PRN Reason: PAIN LEVEL 7 - 10 Last Admin: 09/25/19 21:02 Dose: 5 mg Pantoprazole Sodium (Protonix -) 40 mg PO DAILY [facility] Last Admin: 09/26/19 10:30 Dose: 40 mg Propranolol HCl (Inderal La -) 60 mg PO DAILY [facility] Last Admin: 09/26/19 10:30 Dose: 60 mg Sertraline HCl (Zoloft -) 50 mg PO DAILY [facility] Last Admin: 09/26/19 10:35 Dose: 50 mg On Examination: Last Vital Signs Temp Pulse Resp BP Pulse Ox 97.9 F 91 H 20 147/84 97 09/26/19 18:00 09/26/19 18:00 09/26/19 18:00 09/26/19 18:00 09/26/19 09:00 General: In no acute distress, sitting in wheelchair. Extremities: No pallor or icterus. Massive bilateral pedal edema, marked erythema both shins. No palpable lymphadenopathy. CVS: S1, S2, regular, no gallop or murmur. Chest: good air entry bilaterally, clear Abdomen: Non-distended. Neuro: Alert, oriented, non-focal. Labs: CBC, BMP 09/26/19 05:35 09/26/19 05:35 Assessment. Recently diagnosed cholangiocarcinoma - mid C2 gem/oxali - tolerating well. Fluid overload - with massive pedal edema - diuresing - IV lasix - continue - watch creat. New bilateral DVT noted yesterday - certainly was contributng to the swelling - started on full dose anticoagulation - LMWH - continue. Lower extermity erythema - trial of empiric Abics - ID following. Started SSRI for mood. Nausea today - possible attributable to initiation of the SSRI - will treat symptomatically for now - Zofran PRN CT pending - ?response to therapy.
[2019-09-27] MEDS: oxyCODONE HCL 5 MG TABLET PO PRN (01:31)
[2019-09-27] MEDS: VANCOMYCIN 1 GRAM (PRE-DOCKED) 1,000 MG/250 ML BAG IVPB SCH ×2 (01:31→18:48)
[2019-09-27] MEDS: ONDANSETRON 8 MG TABLET (FP) PO PRN (05:24)
[2019-09-27] MEDS: LEVOTHYROXINE NA 50 MCG TABLET (FP) PO SCH (06:02)
[2019-09-27 07:51] LABS: BASO % 0.2 % (0-2.0); EOS % 0.2 % (0-4.5); HEMATOCRIT 24.6 % (32.4-45.2); HEMOGLOBIN 8.5 GM/dL (10.7-15.3); LYMPH % 5.4 % (8-40); MCH 30.9 pg (25.7-33.7); MCHC 34.4 g/dl (32.0-36.0); MONO % 0.7 % (3.8-10.2); NEUT % 93.5 % (42.8-82.8); PLATELET COUNT 187 K/MM3 (134-434); RBC 2.73 M/mm3 (3.60-5.2); RDW 16.1 % (11.6-15.6); WHITE BLOOD COUNT 10.6 K/mm3 (4.0-10.0)
[2019-09-27 08:02] LABS: ALBUMIN 2.3 g/dl (3.4-5.0); BILIRUBIN,TOTAL 0.9 mg/dL (0.2-1); BLOOD UREA NITROGEN 42.6 mg/dL (7-18); CALCIUM 8.2 mg/dL (8.5-10.1); CREATININE 0.9 mg/dL (0.55-1.3); POTASSIUM 3.6 mmol/L (3.5-5.1); TOT PROT 5.2 g/dl (6.4-8.2)
[2019-09-27] MEDS ORDERED: SODIUM CHLORIDE 1,000 ML IV SCH (09:30)
[2019-09-27] MEDS ORDERED: DEXTROSE 5%-WATER 100 ML IVPB ONE (09:34)
[2019-09-27] MEDS ORDERED: PT OWN MED DRAWER 7, Y5N ONE (09:34)
[2019-09-27] MEDS: ENOXAPARIN NA (PORCINE) 120 MG/0.8 ML DISP.SYRIN SQ SCH ×2 (09:44→21:16)
[2019-09-27] MEDS: CEFTRIAXONE 2 GM in DEXTROSE 5%-WATER 100 ML IVPB SCH (09:45)
[2019-09-27] MEDS: PANTOPRAZOLE 40 MG TABLET (FP) PO SCH (09:48)
[2019-09-27] MEDS ORDERED: PROCHLORPERAZINE INJECTION 10 MG/2 ML VIAL IVPB PRN (11:58)
[2019-09-27 12:30] LABS: ANISOCYTOSIS 0; MACROCYTOSIS 0; PLATELET ESTIMATE NORMAL
[2019-09-27] MEDS: ONDANSETRON 4 MG/2 ML VIAL IVPB PRN (14:33)
--- NOTE | 2019-09-27 17:48 | PN ---
Progress Note, Physician History of Present Illness: Pt seen and examined at bedside. She denies shortness of breath. She complains of lower ext edema. - Current Medication List Current Medications: Active Medications Alprazolam (Xanax -) 0.5 mg PO Q24H PRN PRN Reason: ANXIETY Last Admin: 09/25/19 14:14 Dose: 0.5 mg Enoxaparin Sodium (Lovenox -) 120 mg SQ BID [facility] Last Admin: 09/27/19 09:44 Dose: 120 mg Vancomycin HCl (Vancomycin (Pre-Docked)) 1,000 mg in 250 mls @ 166.667 mls/hr IVPB 0100,1300 [facility]; Protocol Last Admin: 09/27/19 01:31 Dose: 166.667 mls/hr Ceftriaxone Sodium 2 gm/ (Dextrose) 100 mls @ 100 mls/hr IVPB DAILY [facility]; Protocol Last Admin: 09/27/19 09:45 Dose: 100 mls/hr Sodium Chloride (Normal Saline -) 1,000 mls @ 60 mls/hr IV ASDIR [facility] Last Admin: 09/27/19 09:44 Dose: 60 mls/hr Levothyroxine Sodium (Synthroid -) 50 mcg PO DAILY@0700 [facility] Last Admin: 09/27/19 06:02 Dose: Not Given Loperamide HCl (Imodium -) 2 mg PO Q4H PRN PRN Reason: DIARRHEA Ondansetron HCl (Zofran Injection) 8 mg IVPB Q8H PRN PRN Reason: NAUSEA Last Admin: 09/27/19 14:33 Dose: 8 mg Oxycodone HCl (Roxicodone -) 5 mg PO Q8H PRN PRN Reason: PAIN LEVEL 7 - 10 Last Admin: 09/27/19 01:31 Dose: 5 mg Pantoprazole Sodium (Protonix Iv) 40 mg IVPUSH BID [facility] Prochlorperazine Edisylate (Compazine Injection -) 10 mg IVPB Q6H PRN PRN Reason: NAUSEA AND/OR VOMITING Propranolol HCl (Inderal La -) 60 mg PO DAILY [facility] Last Admin: 09/27/19 15:24 Dose: Not Given - Objective Vital Signs: Vital Signs Temperature 97.6 F 09/27/19 15:16 Pulse Rate 84 09/27/19 15:16 Respiratory Rate 20 09/27/19 15:16 Blood Pressure 111/60 09/27/19 15:16 O2 Sat by Pulse Oximetry (%) 97 09/27/19 09:00 Constitutional: Yes: Calm Eyes: Yes: Conjunctiva Clear HENT: Yes: Atraumatic Neck: Yes: Supple Cardiovascular: Yes: S1, S2 Respiratory: Yes: CTA Bilaterally Gastrointestinal: Yes: Soft Genitourinary: Yes: WNL Musculoskeletal: Yes: WNL Edema: Yes Edema: LLE: 3+, RLE: 3+ Neurological: Yes: Oriented Psychiatric: Yes: Oriented Labs: CBC, BMP 09/27/19 07:00 09/27/19 07:00 INR, PTT INR 1.28 (0.83-1.09) H 09/26/19 05:35 Assessment/Plan Current Medications Generic Name Dose Route Start Last Admin Trade Name Freq PRN Reason Stop Dose Admin Alprazolam 0.5 mg 09/24/19 10:00 09/25/19 14:14 Xanax - PO 0.5 mg Q24H PRN Administration ANXIETY Enoxaparin Sodium 120 mg 09/25/19 22:15 09/27/19 09:44 Lovenox - SQ 120 mg BID [facility] Administration Vancomycin HCl 1,000 mg in 250 mls @ 166.667 mls/hr 09/23/19 13:00 09/27/19 01:31 Vancomycin (Pre-Docked) IVPB 166.667 mls/hr 0100,1300 [facility] Administration Protocol Ceftriaxone Sodium 2 gm/ 100 mls @ 100 mls/hr 09/23/19 13:00 09/27/19 09:45 Dextrose IVPB 100 mls/hr DAILY [facility] Administration Protocol Sodium Chloride 1,000 mls @ 60 mls/hr 09/27/19 09:30 09/27/19 09:44 Normal Saline - IV 60 mls/hr ASDIR [facility] Administration Levothyroxine Sodium 50 mcg 09/24/19 07:00 09/27/19 06:02 Synthroid - PO Not Given DAILY@0700 [facility] Loperamide HCl 2 mg 09/26/19 17:00 Imodium - PO Q4H PRN DIARRHEA Ondansetron HCl 8 mg 09/27/19 14:08 09/27/19 14:33 Zofran Injection IVPB 8 mg Q8H PRN Administration NAUSEA Oxycodone HCl 5 mg 09/23/19 19:29 09/27/19 01:31 Roxicodone - PO 5 mg Q8H PRN Administration PAIN LEVEL 7 - 10 Pantoprazole Sodium 40 mg 09/27/19 22:00 Protonix Iv IVPUSH BID [facility] Prochlorperazine Edisylate 10 mg 09/27/19 11:58 Compazine Injection - IVPB Q6H PRN NAUSEA AND/OR VOMITING Propranolol HCl 60 mg 09/24/19 10:00 09/27/19 15:24 Inderal La - PO Not Given DAILY [facility]EL Impression 1. fluid overload 2. HTN 3. HLD 4. poorly differentiated carcinoma on biopsy of 11cm left lobe of the liver mass 5. hypothyroidism 6. elevated LDH 7. leukocytosis 8. UTI 9. cellulitis Plan - follow up ct scan - d/c fluids after scan - diuretics on hold - repeat labs in am - discussed with oncology - monitor in and out
--- NOTE | 2019-09-27 18:31 | PN ---
Progress Note (short form) - Note Progress Note: Patient seen and examined Feels fatigued, nauseous Last Vital Signs Temp Pulse Resp BP Pulse Ox 97.7 F 85 20 130/75 97 09/27/19 18:27 09/27/19 18:27 09/27/19 18:27 09/27/19 18:27 09/27/19 09:00 Cor: RSR, No murmurs, No gallops Lungs: Clear to P&A Abd: Soft, Normal bowel sounds, No organomegaly Ext:No significant edema Abnormal Lab Results 09/27/19 09/27/19 07:00 07:00 WBC 10.6 H RBC 2.73 L Hgb 8.5 L Hct 24.6 L RDW 16.1 H Absolute Neuts (auto) 9.9 H Neutrophils % 93.5 H Neutrophils % (Manual) 95.0 H Lymphocytes % 5.4 L Lymphocytes % (Manual) 5.0 L D Monocytes % 0.7 L Monocytes % (Manual) 0 L D Sodium 132 L Chloride 95 L BUN 42.6 H Calcium 8.2 L AST 112 H Alkaline Phosphatase 305 H Total Protein 5.2 L Albumin 2.3 L Active Medications Alprazolam (Xanax -) 0.5 mg PO Q24H PRN PRN Reason: ANXIETY Last Admin: 09/25/19 14:14 Dose: 0.5 mg Enoxaparin Sodium (Lovenox -) 120 mg SQ BID [facility] Last Admin: 09/27/19 09:44 Dose: 120 mg Vancomycin HCl (Vancomycin (Pre-Docked)) 1,000 mg in 250 mls @ 166.667 mls/hr IVPB 0100,1300 [facility]; Protocol Last Admin: 09/27/19 01:31 Dose: 166.667 mls/hr Ceftriaxone Sodium 2 gm/ (Dextrose) 100 mls @ 100 mls/hr IVPB DAILY [facility]; Protocol Last Admin: 09/27/19 09:45 Dose: 100 mls/hr Sodium Chloride (Normal Saline -) 1,000 mls @ 60 mls/hr IV ASDIR [facility] Last Admin: 09/27/19 09:44 Dose: 60 mls/hr Levothyroxine Sodium (Synthroid -) 50 mcg PO DAILY@0700 [facility] Last Admin: 09/27/19 06:02 Dose: Not Given Loperamide HCl (Imodium -) 2 mg PO Q4H PRN PRN Reason: DIARRHEA Ondansetron HCl (Zofran Injection) 8 mg IVPB Q8H PRN PRN Reason: NAUSEA Last Admin: 09/27/19 14:33 Dose: 8 mg Oxycodone HCl (Roxicodone -) 5 mg PO Q8H PRN PRN Reason: PAIN LEVEL 7 - 10 Last Admin: 09/27/19 01:31 Dose: 5 mg Pantoprazole Sodium (Protonix Iv) 40 mg IVPUSH BID [facility] Prochlorperazine Edisylate (Compazine Injection -) 10 mg IVPB Q6H PRN PRN Reason: NAUSEA AND/OR VOMITING Propranolol HCl (Inderal La -) 60 mg PO DAILY [facility] Last Admin: 09/27/19 15:24 Dose: Not Given A/P 69 y/o patient with gallbladder vs intrahepatic cholangiocarcinoma, C2 D11 gem/ ox. D8 gemzar held due to G3 thrombocytopenia Thrombocytopenia recovered. dosed gemzar 09/23 ?? cellulitis --on vanco /rcepin cultures negative b/l DVT--on lovenox 120mg SC bid monitor CBC hold for platelets < 50,[address] c/a/p per pancreatic protocol hold diuretics gentle hydration discussed with renal team nausea--protonix/zofran/compazine discussed with daughter
[2019-09-27] MEDS: PANTOPRAZOLE SODIUM 40 MG VIAL IVPUSH SCH (21:16)
[2019-09-27] MEDS: ZOLPIDEM TARTRATE 5 MG TABLET PO PRN (21:42)
[2019-09-27] MEDS: LOPERAMIDE HCL 2 MG CAPSULE PO PRN (21:43)
--- NOTE | 2019-09-27 23:47 | PN ---
Progress Note, Physician Chief Complaint: OOB IN CHAIR C/O LE PAIN NO C/O FEVER/ CHILLS BC NO GROWTH - Current Medication List Current Medications: Active Medications Alprazolam (Xanax -) 0.5 mg PO Q24H PRN PRN Reason: ANXIETY Last Admin: 09/25/19 14:14 Dose: 0.5 mg Enoxaparin Sodium (Lovenox -) 120 mg SQ BID [facility] Last Admin: 09/27/19 21:16 Dose: 120 mg Vancomycin HCl (Vancomycin (Pre-Docked)) 1,000 mg in 250 mls @ 166.667 mls/hr IVPB 0100,1300 [facility]; Protocol Last Admin: 09/27/19 18:48 Dose: Not Given Ceftriaxone Sodium 2 gm/ (Dextrose) 100 mls @ 100 mls/hr IVPB DAILY [facility]; Protocol Last Admin: 09/27/19 09:45 Dose: 100 mls/hr Sodium Chloride (Normal Saline -) 1,000 mls @ 60 mls/hr IV ASDIR [facility] Last Admin: 09/27/19 09:44 Dose: 60 mls/hr Levothyroxine Sodium (Synthroid -) 50 mcg PO DAILY@0700 [facility] Last Admin: 09/27/19 06:02 Dose: Not Given Loperamide HCl (Imodium -) 2 mg PO Q4H PRN PRN Reason: DIARRHEA Last Admin: 09/27/19 21:43 Dose: 2 mg Ondansetron HCl (Zofran Injection) 8 mg IVPB Q8H PRN PRN Reason: NAUSEA Last Admin: 09/27/19 14:33 Dose: 8 mg Oxycodone HCl (Roxicodone -) 5 mg PO Q8H PRN PRN Reason: PAIN LEVEL 7 - 10 Last Admin: 09/27/19 01:31 Dose: 5 mg Pantoprazole Sodium (Protonix Iv) 40 mg IVPUSH BID [facility] Last Admin: 09/27/19 21:16 Dose: 40 mg Prochlorperazine Edisylate (Compazine Injection -) 10 mg IVPB Q6H PRN PRN Reason: NAUSEA AND/OR VOMITING Propranolol HCl (Inderal La -) 60 mg PO DAILY [facility] Last Admin: 09/27/19 15:24 Dose: Not Given Zolpidem Tartrate (Ambien -) 5 mg PO HS PRN PRN Reason: INSOMNIA Last Admin: 09/27/19 21:42 Dose: 5 mg - Objective Vital Signs: Vital Signs Temperature 97.9 F 09/27/19 22:00 Pulse Rate 88 09/27/19 22:00 Respiratory Rate 20 09/27/19 22:00 Blood Pressure 121/69 09/27/19 22:00 O2 Sat by Pulse Oximetry (%) 96 09/27/19 21:00 Constitutional: Yes: No Distress Eyes: Yes: Conjunctiva Clear Cardiovascular: Yes: Regular Rate and Rhythm, S1, S2 Respiratory: Yes: CTA Bilaterally Gastrointestinal: Yes: Normal Bowel Sounds, Soft Edema: Yes Edema: LLE: 3+, RLE: 3+ Integumentary: Yes: Other (ERYTHEMA LE BILATERALLY) Labs: CBC, BMP 09/27/19 07:00 09/27/19 07:00 INR, PTT INR 1.28 (0.83-1.09) H 09/26/19 05:35 Assessment/Plan BILATERAL LE CELLULITIS METASTATIC CARCINOMA CONTINUE CEFTRIAXONE/ VANCOMYCIN ELEVATION
[2019-09-28] MEDS: VANCOMYCIN 1 GRAM (PRE-DOCKED) 1,000 MG/250 ML BAG IVPB SCH ×2 (00:14→14:12)
[2019-09-28] MEDS: LEVOTHYROXINE NA 50 MCG TABLET (FP) PO SCH (06:27)
[2019-09-28 07:49] LABS: BASO % 0.1 % (0-2.0); EOS % 0.2 % (0-4.5); HEMATOCRIT 23.3 % (32.4-45.2); LYMPH % 6.2 % (8-40); MCH 30.7 pg (25.7-33.7); MCHC 34.4 g/dl (32.0-36.0); MEAN CELL VOLUME 89.3 fl (80-96); MEAN PLT VOLUME 8.8 fl (7.5-11.1); MONO % 1.8 % (3.8-10.2); NEUT % 91.7 % (42.8-82.8); PLATELET COUNT 149 K/MM3 (134-434); RBC 2.61 M/mm3 (3.60-5.2); RDW 16.4 % (11.6-15.6); WHITE BLOOD COUNT 5.6 K/mm3 (4.0-10.0)
[2019-09-28 08:31] LABS: ALBUMIN 2.3 g/dl (3.4-5.0); BILIRUBIN,TOTAL 0.8 mg/dL (0.2-1); BLOOD UREA NITROGEN 41.8 mg/dL (7-18); CALCIUM 8.3 mg/dL (8.5-10.1); POTASSIUM 3.3 mmol/L (3.5-5.1)
[2019-09-28] MEDS ORDERED: DEXTROSE 5%-WATER 100 ML IVPB ONE (10:10)
--- NOTE | 2019-09-28 10:29 | CON.PULM ---
Consult Consult Specialty:: PULMONARY Referred by:: Dr Walden Reason for Consultation:: PE - History of Present Illness Chief Complaint: leg pain History of Present Illness: 69yo female with h/o HTN, hyperlipidemia, hypothyroidism, metastatic cholangiocarcinoma on chemotherapy who was admitted with leg pain and swelling. Being treated for cellulitis but LE dopplers also showing bilateral DVTs. She has been experiencing dyspnea on exertion without chest pain or palpitations. CT chest, A/P done yesterday also revealing right sided pulmonary emboli and progression of liver disease. - History Source History Provided By: Patient, Medical Record Limitations to Obtaining History: No Limitations - Past Medical History Cardio/Vascular: Yes: HTN, Hyperlipdemia Gastrointestinal: Yes: Diverticulitis Hepatobiliary: Yes: Cholelithiasis Renal/: Yes: Renal Inusuff Endocrine: Yes: Hypothyroidism - Past Surgical History Past Surgical History: Yes: Appendectomy, Breast Biopsy (benign left breast biopsy), Colectomy (laparoscopic sigmoid resection ), Colonoscopy, Laminectomy - Alcohol/Substance Use Hx Alcohol Use: No History of Substance Use: reports: None - Smoking History Smoking history: Former smoker Have you smoked in the past 12 months: No Aproximately how many cigarettes per day: 0 If you are a former smoker, when did you quit?: 1994 - Social History Usual Living Arrangement: Alone ADL: Independent 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 Home Medications - Allergies Allergies/Adverse Reactions: Allergies Allergy/AdvReac Type Severity Reaction Status Date / Time No Known Drug Allergies Allergy Verified 08/25/19 13:07 - Home Medications Home Medications: Ambulatory Orders Levothyroxine [Synthroid -] 50 mcg PO DAILY 03/04/19 propRANOLol HCL [Inderal LA -] 60 mg PO DAILY 03/04/19 Potassium Chloride [K-Dur -] 20 meq PO DAILY 09/13/19 Alprazolam [Xanax] 0.5 mg PO Q12H PRN tablet MDD 2 09/21/19 Cephalexin Monohydrate [Keflex -] 500 mg PO TID 10 Days #30 capsule 09/21/19 Furosemide [Lasix -] 40 mg PO DAILY #30 tablet 09/21/19 Loperamide HCl [Imodium -] 2 mg PO Q6H PRN 30 Days capsule MDD 4 09/21/19 Pantoprazole Sodium [Protonix -] 40 mg PO DAILY #30 tablet.ec 09/21/19 oxyCODONE HCL [Roxicodone -] 5 mg PO Q6H PRN tablet MDD 4 09/21/19 Review of Systems - Review of Systems Constitutional: reports: Loss of Appetite, Weakness. denies: Chills, Fever Eyes: denies: Recent Change in Vision HENT: denies: Nasal Congestion, Throat Pain Neck: denies: Stiffness, Tenderness Cardiovascular: reports: Edema, Shortness of Breath. denies: Chest Pain, Palpitations Respiratory: reports: Cough, SOB on Exertion. denies: Hemoptysis, Wheezing Gastrointestinal: reports: Bloating, Nausea Genitourinary: denies: Dysuria, Hematuria Neurological: denies: Dizziness, Headache Physical Exam Vital Sings: Vital Signs Temperature 98.0 F 09/28/19 06:00 Pulse Rate 96 H 09/28/19 06:00 Respiratory Rate 20 09/28/19 06:00 Blood Pressure 122/54 L 09/28/19 06:00 O2 Sat by Pulse Oximetry (%) 96 09/27/19 21:00 Constitutional: Yes: Calm Eyes: Yes: Conjunctiva Clear, EOM Intact HENT: Yes: Atraumatic, Normocephalic Neck: Yes: Supple, Trachea Midline Cardiovascular: Yes: Regular Rate and Rhythm Respiratory: Yes: Diminished (decreased breath sounds at the bases) Gastrointestinal: Yes: Soft, Distention Extremities: Yes: Erythema Edema: Yes Neurological: Yes: Alert, Oriented Labs: CBC, BMP 09/28/19 06:30 09/28/19 06:30 Imaging - Results Chest X-ray: Report Reviewed, Image Reviewed Cat Scan: Report Reviewed, Image Reviewed (right sided PE, right basilar atelectasis) Problem List - Problems (1) Pulmonary emboli Code(s): I26.99 - OTHER PULMONARY EMBOLISM WITHOUT ACUTE COR PULMONALE (2) DVT (deep venous thrombosis) Code(s): I82.409 - ACUTE EMBOLISM AND THOMBOS UNSP DEEP VN UNSP LOWER EXTREMITY Assessment/Plan Acute Pulmonary Embolism Bilateral DVTs Metastatic Cholangiocarcinoma Cellulitis Hyponatremia HTN Hyperlipidemia Anemia - continue lovenox - O2 to keep SpO2 >90% - continue antibiotics - replete lytes - prognosis guarded Thank you for this consult Kamron Weaver MD
[2019-09-28] MEDS: CEFTRIAXONE 2 GM in DEXTROSE 5%-WATER 100 ML IVPB SCH (10:46)
[2019-09-28] MEDS: PANTOPRAZOLE SODIUM 40 MG VIAL IVPUSH SCH ×2 (10:46→21:18)
[2019-09-28] MEDS: SERTRALINE HCL 50 MG TABLET (FP) PO SCH (10:46)
[2019-09-28] MEDS: ENOXAPARIN NA (PORCINE) 120 MG/0.8 ML DISP.SYRIN SQ SCH ×2 (10:47→21:18)
--- NOTE | 2019-09-28 13:45 | PN ---
Physical Exam: SUBJECTIVE: Patient seen and examined not feeling well , just vomited OBJECTIVE: Vital Signs Period Temp Pulse Resp BP Sys/Ortega Pulse Ox Last 24 Hr 97.6 F-98.0 F 84-96 20-20 111-130/54-75 96 HEENT: CHARLIE, EOM Intact Oropharynx: No thrush, No mucositis Cor: RSR, No murmurs, No gallops Lungs: diminished breath sounds bilaterally Abd: distended , no masses Ext: significant edema LE's, B/L cellulitis Neuro: no focal deficit CBC, BMP Laboratory Results - last 24 hr 09/28/19 09/28/19 06:30 06:30 WBC 5.6 RBC 2.61 L Hgb 8.0 L Hct 23.3 L MCV 89.3 MCH 30.7 MCHC 34.4 RDW 16.4 H Plt Count 149 D MPV 8.8 Absolute Neuts (auto) 5.2 Neutrophils % 91.7 H Lymphocytes % 6.2 L Monocytes % 1.8 L D Eosinophils % 0.2 Basophils % 0.1 Nucleated RBC % 0 Sodium 132 L Potassium 3.3 L Chloride 95 L Carbon Dioxide 25 Anion Gap 12 BUN 41.8 H Creatinine 1.0 Est GFR (CKD-EPI)AfAm 66.10 Est GFR (CKD-EPI)NonAf 57.03 Random Glucose 76 Calcium 8.3 L Total Bilirubin 0.8 AST 109 H ALT 43 Alkaline Phosphatase 338 H Total Protein 5.0 L Albumin 2.3 L Active Medications Generic Name Dose Route Start Last Admin Trade Name Freq PRN Reason Stop Dose Admin Alprazolam 0.5 mg 09/24/19 10:00 09/25/19 14:14 Xanax - PO 0.5 mg Q24H PRN Administration ANXIETY Enoxaparin Sodium 120 mg 09/25/19 22:15 09/28/19 10:47 Lovenox - SQ 120 mg BID [facility] Administration Vancomycin HCl 1,000 mg in 250 mls @ 166.667 mls/hr 09/23/19 13:00 09/28/19 00:14 Vancomycin (Pre-Docked) IVPB 166.667 mls/hr 0100,1300 [facility] Administration Protocol Ceftriaxone Sodium 2 gm/ 100 mls @ 100 mls/hr 09/23/19 13:00 09/28/19 10:46 Dextrose IVPB 100 mls/hr DAILY [facility] Administration Protocol Levothyroxine Sodium 50 mcg 09/24/19 07:00 09/28/19 06:27 Synthroid - PO 50 mcg DAILY@0700 [facility] Administration Loperamide HCl 2 mg 09/26/19 17:00 09/27/19 21:43 Imodium - PO 2 mg Q4H PRN Administration DIARRHEA Ondansetron HCl 8 mg 09/27/19 14:08 09/27/19 14:33 Zofran Injection IVPB 8 mg Q8H PRN Administration NAUSEA Oxycodone HCl 5 mg 09/23/19 19:29 09/27/19 01:31 Roxicodone - PO 5 mg Q8H PRN Administration PAIN LEVEL 7 - 10 Pantoprazole Sodium 40 mg 09/27/19 22:00 09/28/19 10:46 Protonix Iv IVPUSH 40 mg BID [facility] Administration Prochlorperazine Edisylate 10 mg 09/27/19 11:58 Compazine Injection - IVPB Q6H PRN NAUSEA AND/OR VOMITING Propranolol HCl 60 mg 09/24/19 10:00 09/28/19 10:48 Inderal La - PO 60 mg DAILY [facility] Administration Sertraline HCl 50 mg 09/28/19 10:15 09/28/19 10:46 Zoloft - PO 50 mg DAILY [facility] Administration Zolpidem Tartrate 5 mg 09/27/19 21:23 09/27/19 21:42 Ambien - PO 5 mg HS PRN Administration INSOMNIA CBC, BMP 09/28/19 06:30 09/28/19 06:30 CT A/P In comparison to a CT exam of 07/29/2019 note is made of increased size and number of multiple hepatic neoplastic lesions as noted above. Increased hepatomegaly is noted with elevation of the right diaphragm is noted as on the prior study. The portal vein appears patent. Interval development of a small amount of ascites is seen within the abdomen and pelvis. The remainder of the exam demonstrates no definite interval change. Cholelithiasis. No biliary tract dilatation is identified. Pelvic ventral hernia containing nondilated small bowel loops. c CT chest with Acute PE ASSESSMENT/PLAN: 69 y/o patient with gallbladder vs intrahepatic cholangiocarcinoma, C2 D11 gem/ ox. D8 gemzar held due to G3 thrombocytopenia #Thrombocytopenia recovered. dosed gemzar 09/23 # cellulitis --on vanco /rcepin cultures negative #b/l DVT--on lovenox 120mg SC bid * monitor CBC * hold for platelets < 50,000 #For CT c/a/p per pancreatic protocol as noted above multiple hepatic neoplastic lesions with increased hepatomegaly * hold diuretics * gentle hydration * renal team on board #nausea--protonix/zofran/compazine # Hypokalemia replinish as needed # Hyponatremia monitor ATTENDING PHYSICIAN STATEMENT I saw and evaluated the patient. I reviewed the resident's note and discussed the case with the resident. I agree with the resident's findings and plan as documented. SUBJECTIVE: OBJECTIVE: ASSESSMENT AND PLAN:
[2019-09-28 14:43] LABS: ANISOCYTOSIS 1+; MACROCYTOSIS 0; PLATELET ESTIMATE NORMAL
--- NOTE | 2019-09-28 14:49 | PN.GI ---
GI Progress Note Subjective: GI NOte: DVTs confirmed on venous Doppler explain her pulmonary emboli and the refractoriness of her lower extremity edema. - Objective Vital Signs: Vital Signs Temperature 98.0 F 09/28/19 06:00 Pulse Rate 96 H 09/28/19 06:00 Respiratory Rate 20 09/28/19 06:00 Blood Pressure 122/54 L 09/28/19 06:00 O2 Sat by Pulse Oximetry (%) 96 09/27/19 21:00 Laboratory Tests 09/23/19 09/28/19 11:52 06:30 WBC 20.6 H 5.6 Constitutional: Anxious ...Auscultate: Yes: Hypoactive Bowel Sounds ...Palpate: Yes: Soft, Other Edema: LLE: 4+, RLE: 4+ Labs: CBC, BMP 09/28/19 06:30 09/28/19 06:30 INR, PTT INR 1.28 (0.83-1.09) H 09/26/19 05:35 Assessment/Plan Assessment: - Advanced left lobe liver neoplasm extending into the right lobe with elevated Ca 19.9 and normal AFP suggesting cholangiocarcinoma rather than hepatocellular carcinoma. - Bloating due to fecal retention/ ileus- somewhat relieved after CT which however reveals enlarging tumor burden Plan: - Continue heparin - Prognosis is grave Problem List - Problems (2) Edema leg Code(s): R60.0 - LOCALIZED EDEMA (3) Cellulitis of extremity Code(s): L03.119 - CELLULITIS OF UNSPECIFIED PART OF LIMB (4) History of diverticulitis of colon Code(s): Z87.19 - PERSONAL HISTORY OF OTHER DISEASES OF THE DIGESTIVE SYSTEM (5) History of appendectomy Code(s): Z90.49 - ACQUIRED ABSENCE OF OTHER SPECIFIED PARTS OF DIGESTIVE TRACT (6) History of partial colectomy Code(s): Z90.49 - ACQUIRED ABSENCE OF OTHER SPECIFIED PARTS OF DIGESTIVE TRACT (7) Hypothyroid Code(s): E03.9 - HYPOTHYROIDISM, UNSPECIFIED (8) Hypertension Code(s): I10 - ESSENTIAL (PRIMARY) HYPERTENSION (9) Hyperlipemia Code(s): E78.5 - HYPERLIPIDEMIA, UNSPECIFIED (10) Cholelithiasis Code(s): K80.20 - CALCULUS OF GALLBLADDER W/O CHOLECYSTITIS W/O OBSTRUCTION (11) DVT (deep venous thrombosis) Code(s): I82.409 - ACUTE EMBOLISM AND THOMBOS UNSP DEEP VN UNSP LOWER EXTREMITY (12) Pulmonary emboli Code(s): I26.99 - OTHER PULMONARY EMBOLISM WITHOUT ACUTE COR PULMONALE
--- NOTE | 2019-09-28 17:32 | PN ---
Progress Note, Physician Chief Complaint: OOB IN CHAIR NO C/O LE PAIN NO C/O FEVER/ CHILLS BC NO GROWTH - Current Medication List Current Medications: Active Medications Alprazolam (Xanax -) 0.5 mg PO Q24H PRN PRN Reason: ANXIETY Last Admin: 09/25/19 14:14 Dose: 0.5 mg Enoxaparin Sodium (Lovenox -) 120 mg SQ BID [facility] Last Admin: 09/28/19 10:47 Dose: 120 mg Vancomycin HCl (Vancomycin (Pre-Docked)) 1,000 mg in 250 mls @ 166.667 mls/hr IVPB 0100,1300 [facility]; Protocol Last Admin: 09/28/19 14:12 Dose: 166.667 mls/hr Ceftriaxone Sodium 2 gm/ (Dextrose) 100 mls @ 100 mls/hr IVPB DAILY [facility]; Protocol Last Admin: 09/28/19 10:46 Dose: 100 mls/hr Levothyroxine Sodium (Synthroid -) 50 mcg PO DAILY@0700 [facility] Last Admin: 09/28/19 06:27 Dose: 50 mcg Loperamide HCl (Imodium -) 2 mg PO Q4H PRN PRN Reason: DIARRHEA Last Admin: 09/27/19 21:43 Dose: 2 mg Ondansetron HCl (Zofran Injection) 8 mg IVPB Q8H PRN PRN Reason: NAUSEA Last Admin: 09/27/19 14:33 Dose: 8 mg Oxycodone HCl (Roxicodone -) 5 mg PO Q8H PRN PRN Reason: PAIN LEVEL 7 - 10 Last Admin: 09/27/19 01:31 Dose: 5 mg Pantoprazole Sodium (Protonix Iv) 40 mg IVPUSH BID [facility] Last Admin: 09/28/19 10:46 Dose: 40 mg Prochlorperazine Edisylate (Compazine Injection -) 10 mg IVPB Q6H PRN PRN Reason: NAUSEA AND/OR VOMITING Propranolol HCl (Inderal La -) 60 mg PO DAILY [facility] Last Admin: 09/28/19 10:48 Dose: 60 mg Sertraline HCl (Zoloft -) 50 mg PO DAILY [facility] Last Admin: 09/28/19 10:46 Dose: 50 mg Zolpidem Tartrate (Ambien -) 5 mg PO HS PRN PRN Reason: INSOMNIA Last Admin: 09/27/19 21:42 Dose: 5 mg - Objective Vital Signs: Vital Signs Temperature 98.3 F 09/28/19 15:13 Pulse Rate 85 09/28/19 15:13 Respiratory Rate 20 09/28/19 15:13 Blood Pressure 134/64 09/28/19 15:13 O2 Sat by Pulse Oximetry (%) 96 09/28/19 09:00 Cardiovascular: Yes: Regular Rate and Rhythm, S1, S2 Respiratory: Yes: CTA Bilaterally Gastrointestinal: Yes: Normal Bowel Sounds, Soft Edema: LLE: 3+, RLE: 3+ Integumentary: Yes: Other (+ERYTHEMA PRETIBIAL AREAS BILATERALLY) Labs: CBC, BMP 09/28/19 06:30 09/28/19 06:30 INR, PTT INR 1.28 (0.83-1.09) H 09/26/19 05:35 Assessment/Plan BILATERAL LE CELLULITIS METASTATIC CARCINOMA CONTINUE CEFTRIAXONE/ VANCOMYCIN
[2019-09-28] MEDS ORDERED: POTASSIUM CHLORIDE TABS 20 MEQ TABLET.ER (FP) PO ONE (17:37)
[2019-09-28] MEDS ORDERED: FUROSEMIDE 40 MG/4 ML INJECTABLE VIAL IVPUSH ONE (17:37)
--- NOTE | 2019-09-28 17:40 | PN ---
Progress Note, Physician History of Present Illness: Pt seen and examined at bedside. She is awake and alert. She denies shortness of breath. - Current Medication List Current Medications: Active Medications Alprazolam (Xanax -) 0.5 mg PO Q24H PRN PRN Reason: ANXIETY Last Admin: 09/25/19 14:14 Dose: 0.5 mg Enoxaparin Sodium (Lovenox -) 120 mg SQ BID [facility] Last Admin: 09/28/19 10:47 Dose: 120 mg Furosemide (Lasix Injection -) 40 mg IVPUSH ONCE ONE Stop: 09/28/19 17:38 Vancomycin HCl (Vancomycin (Pre-Docked)) 1,000 mg in 250 mls @ 166.667 mls/hr IVPB 0100,1300 [facility]; Protocol Last Admin: 09/28/19 14:12 Dose: 166.667 mls/hr Ceftriaxone Sodium 2 gm/ (Dextrose) 100 mls @ 100 mls/hr IVPB DAILY [facility]; Protocol Last Admin: 09/28/19 10:46 Dose: 100 mls/hr Levothyroxine Sodium (Synthroid -) 50 mcg PO DAILY@0700 [facility] Last Admin: 09/28/19 06:27 Dose: 50 mcg Loperamide HCl (Imodium -) 2 mg PO Q4H PRN PRN Reason: DIARRHEA Last Admin: 09/27/19 21:43 Dose: 2 mg Ondansetron HCl (Zofran Injection) 8 mg IVPB Q8H PRN PRN Reason: NAUSEA Last Admin: 09/27/19 14:33 Dose: 8 mg Oxycodone HCl (Roxicodone -) 5 mg PO Q8H PRN PRN Reason: PAIN LEVEL 7 - 10 Last Admin: 09/27/19 01:31 Dose: 5 mg Pantoprazole Sodium (Protonix Iv) 40 mg IVPUSH BID [facility] Last Admin: 09/28/19 10:46 Dose: 40 mg Potassium Chloride (K-Dur -) 40 meq PO ONCE ONE Stop: 09/28/19 17:38 Prochlorperazine Edisylate (Compazine Injection -) 10 mg IVPB Q6H PRN PRN Reason: NAUSEA AND/OR VOMITING Propranolol HCl (Inderal La -) 60 mg PO DAILY [facility] Last Admin: 09/28/19 10:48 Dose: 60 mg Sertraline HCl (Zoloft -) 50 mg PO DAILY [facility] Last Admin: 09/28/19 10:46 Dose: 50 mg Zolpidem Tartrate (Ambien -) 5 mg PO HS PRN PRN Reason: INSOMNIA Last Admin: 09/27/19 21:42 Dose: 5 mg - Objective Vital Signs: Vital Signs Temperature 98.3 F 09/28/19 15:13 Pulse Rate 85 09/28/19 15:13 Respiratory Rate 20 09/28/19 15:13 Blood Pressure 134/64 09/28/19 15:13 O2 Sat by Pulse Oximetry (%) 96 09/28/19 09:00 Constitutional: Yes: Calm Eyes: Yes: Conjunctiva Clear HENT: Yes: Atraumatic Neck: Yes: Supple Cardiovascular: Yes: S1, S2 Respiratory: Yes: CTA Bilaterally Gastrointestinal: Yes: Soft, Abdomen, Obese Musculoskeletal: Yes: WNL Edema: Yes Edema: LLE: 2+, RLE: 2+ Integumentary: Yes: Erythema Neurological: Yes: Oriented Psychiatric: Yes: Oriented Labs: CBC, BMP 09/28/19 06:30 09/28/19 06:30 INR, PTT INR 1.28 (0.83-1.09) H 09/26/19 05:35 Assessment/Plan Current Medications Generic Name Dose Route Start Last Admin Trade Name Robq PRN Reason Stop Dose Admin Alprazolam 0.5 mg 09/24/19 10:00 09/25/19 14:14 Xanax - PO 0.5 mg Q24H PRN Administration ANXIETY Enoxaparin Sodium 120 mg 09/25/19 22:15 09/28/19 10:47 Lovenox - SQ 120 mg BID [facility] Administration Vancomycin HCl 1,000 mg in 250 mls @ 166.667 mls/hr 09/23/19 13:00 09/28/19 14:12 Vancomycin (Pre-Docked) IVPB 166.667 mls/hr 0100,1300 [facility] Administration Protocol Ceftriaxone Sodium 2 gm/ 100 mls @ 100 mls/hr 09/23/19 13:00 09/28/19 10:46 Dextrose IVPB 100 mls/hr DAILY [facility] Administration Protocol Levothyroxine Sodium 50 mcg 09/24/19 07:00 09/28/19 06:27 Synthroid - PO 50 mcg DAILY@0700 [facility] Administration Loperamide HCl 2 mg 09/26/19 17:00 09/27/19 21:43 Imodium - PO 2 mg Q4H PRN Administration DIARRHEA Ondansetron HCl 8 mg 09/27/19 14:08 09/27/19 14:33 Zofran Injection IVPB 8 mg Q8H PRN Administration NAUSEA Oxycodone HCl 5 mg 09/23/19 19:29 09/27/19 01:31 Roxicodone - PO 5 mg Q8H PRN Administration PAIN LEVEL 7 - 10 Pantoprazole Sodium 40 mg 09/27/19 22:00 09/28/19 10:46 Protonix Iv IVPUSH 40 mg BID [facility] Administration Prochlorperazine Edisylate 10 mg 09/27/19 11:58 Compazine Injection - IVPB Q6H PRN NAUSEA AND/OR VOMITING Propranolol HCl 60 mg 09/24/19 10:00 09/28/19 10:48 Inderal La - PO 60 mg DAILY [facility] Administration Sertraline HCl 50 mg 09/28/19 10:15 09/28/19 10:46 Zoloft - PO 50 mg DAILY [facility] Administration Zolpidem Tartrate 5 mg 09/27/19 21:23 09/27/19 21:42 Ambien - PO 5 mg HS PRN Administration INSOMNIA Impression 1. fluid overload 2. HTN 3. HLD 4. poorly differentiated carcinoma on biopsy of 11cm left lobe of the liver mass 5. hypothyroidism 6. elevated LDH 7. leukocytosis 8. UTI 9. cellulitis 10. PE Plan - ct scan shows growth of lesions - PE on ct scan - lasix - replace potassium - oncology follow up
[2019-09-28] MEDS ORDERED: TBO-FILGRASTIM 480 MCG/0.8 ML DISP.SYRIN SQ ONE (19:41)
[2019-09-28] MEDS ORDERED: PT OWN MED DRAWER 7, Y5N ONE (20:17)
[2019-09-28] MEDS: ZOLPIDEM TARTRATE 5 MG TABLET PO PRN (21:18)
[2019-09-28] MEDS: ONDANSETRON 4 MG/2 ML VIAL IVPB PRN (21:32)
[2019-09-29] MEDS ORDERED: PORTA CATH FLUSH 10 ML IVPUSH PRN (01:20)
[2019-09-29] MEDS: VANCOMYCIN 1 GRAM (PRE-DOCKED) 1,000 MG/250 ML BAG IVPB SCH ×2 (01:46→13:45)
[2019-09-29] MEDS: ALPRAZolam 0.25 MG TABLET PO PRN (06:41)
[2019-09-29] MEDS: LEVOTHYROXINE NA 50 MCG TABLET (FP) PO SCH (06:42)
[2019-09-29 07:00] LABS: BASO % 0.2 % (0-2.0); EOS % 0.1 % (0-4.5); HEMATOCRIT 21.8 % (32.4-45.2); HEMOGLOBIN 7.5 GM/dL (10.7-15.3); LYMPH % 8.1 % (8-40); MCH 30.9 pg (25.7-33.7); MCHC 34.5 g/dl (32.0-36.0); MEAN CELL VOLUME 89.5 fl (80-96); MEAN PLT VOLUME 8.7 fl (7.5-11.1); MONO % 4.9 % (3.8-10.2); NEUT % 86.7 % (42.8-82.8); PLATELET COUNT 96 K/MM3 (134-434); RBC 2.43 M/mm3 (3.60-5.2); RDW 16.1 % (11.6-15.6); WHITE BLOOD COUNT 8.4 K/mm3 (4.0-10.0)
[2019-09-29] MEDS ORDERED: FUROSEMIDE 40 MG/4 ML INJECTABLE VIAL IVPUSH SCH (08:00)
--- NOTE | 2019-09-29 10:16 | PN ---
Progress Note (short form) - Note Progress Note: PULMONARY Still some shortness of breath especially with exertion. No chest pain. Vital Signs Period Temp Pulse Resp BP Sys/Ortega Pulse Ox Last 24 Hr 97.6 F-98.3 F 83-89 18-20 119-134/61-64 96 Gen: NAD in chair Heart: RRR Lung: decreased breath sounds at the bases Abd: softly distended Ext: + edema CBC, BMP 09/29/19 05:40 09/28/19 06:30 Active Medications Alprazolam (Xanax -) 0.5 mg PO Q24H PRN PRN Reason: ANXIETY Last Admin: 09/29/19 06:41 Dose: 0.5 mg Enoxaparin Sodium (Lovenox -) 120 mg SQ BID [facility] Last Admin: 09/28/19 21:18 Dose: 120 mg Furosemide (Lasix Injection -) 40 mg IVPUSH DAILY@0800 [facility] IV Flush (Deric-Cath Flush) 10 ml IVPUSH PRN PRN PRN Reason: protocol, maintain patency Vancomycin HCl (Vancomycin (Pre-Docked)) 1,000 mg in 250 mls @ 166.667 mls/hr IVPB 0100,1300 [facility]; Protocol Last Admin: 09/29/19 01:46 Dose: 166.667 mls/hr Ceftriaxone Sodium 2 gm/ (Dextrose) 100 mls @ 100 mls/hr IVPB DAILY [facility]; Protocol Last Admin: 09/28/19 10:46 Dose: 100 mls/hr Levothyroxine Sodium (Synthroid -) 50 mcg PO DAILY@0700 [facility] Last Admin: 09/29/19 06:42 Dose: 50 mcg Loperamide HCl (Imodium -) 2 mg PO Q4H PRN PRN Reason: DIARRHEA Last Admin: 09/27/19 21:43 Dose: 2 mg Ondansetron HCl (Zofran Injection) 8 mg IVPB Q8H PRN PRN Reason: NAUSEA Last Admin: 09/28/19 21:32 Dose: 8 mg Oxycodone HCl (Roxicodone -) 5 mg PO Q8H PRN PRN Reason: PAIN LEVEL 7 - 10 Last Admin: 09/27/19 01:31 Dose: 5 mg Pantoprazole Sodium (Protonix Iv) 40 mg IVPUSH BID [facility] Last Admin: 09/28/19 21:18 Dose: 40 mg Prochlorperazine Edisylate (Compazine Injection -) 10 mg IVPB Q6H PRN PRN Reason: NAUSEA AND/OR VOMITING Propranolol HCl (Inderal La -) 60 mg PO DAILY [facility] Last Admin: 09/28/19 10:48 Dose: 60 mg Sertraline HCl (Zoloft -) 50 mg PO DAILY [facility] Last Admin: 09/28/19 10:46 Dose: 50 mg Zolpidem Tartrate (Ambien -) 5 mg PO HS PRN PRN Reason: INSOMNIA Last Admin: 09/28/19 21:18 Dose: 5 mg A/P Acute Pulmonary Embolism Bilateral DVTs Metastatic Cholangiocarcinoma Cellulitis Hyponatremia HTN Hyperlipidemia Thrombocytopenia Anemia - continue lovenox - O2 to keep SpO2 >90% - continue antibiotics - replete lytes - prognosis guarded Problem List - Problems (1) Pulmonary emboli Code(s): I26.99 - OTHER PULMONARY EMBOLISM WITHOUT ACUTE COR PULMONALE (2) DVT (deep venous thrombosis) Code(s): I82.409 - ACUTE EMBOLISM AND THOMBOS UNSP DEEP VN UNSP LOWER EXTREMITY
[2019-09-29] MEDS: SERTRALINE HCL 50 MG TABLET (FP) PO SCH (10:31)
[2019-09-29] MEDS: PANTOPRAZOLE SODIUM 40 MG VIAL IVPUSH SCH ×2 (10:31→23:36)
[2019-09-29] MEDS: ENOXAPARIN NA (PORCINE) 120 MG/0.8 ML DISP.SYRIN SQ SCH ×3 (10:31→21:53)
[2019-09-29] MEDS: CEFTRIAXONE 2 GM in DEXTROSE 5%-WATER 100 ML IVPB SCH (10:35)
[2019-09-29 10:37] LABS: ANISOCYTOSIS 2+; MACROCYTOSIS 0; PLATELET ESTIMATE DECREASED
[2019-09-29] MEDS ORDERED: DEXTROSE 5%-WATER 100 ML IVPB ONE (12:42)
--- NOTE | 2019-09-29 13:44 | PN ---
Progress Note (short form) - Note Progress Note: Patient seen and examined Feels fatigued, nauseous AFVSS Cor: RSR, No murmurs, No gallops Lungs: Clear to P&A Abd: Soft, Normal bowel sounds, No organomegaly Ext:3+ edema Labs/meds reviewed A/P 69 y/o patient with gallbladder vs intrahepatic cholangiocarcinoma, C2 D11 gem/ ox. D8 gemzar held due to G3 thrombocytopenia Thrombocytopenia recovered. dosed gemzar 09/23 ?? cellulitis --on vanco /rcephin cultures negative b/l DVT, RLL PE--on lovenox 120mg SC bid monitor CBC hold for platelets < 50,000 CT c/a/p per pancreatic protocol-- left hepatic lobe mass increased from 10cm to 12cm. Increased size and no.several left ( max. 2cm) and rt. hepatic lobe lesions ( max. 4.5cm) Discused overall imaging findings with patient awaiting foundation assay patient to go for f/u at [facility] with Dr. Roland on 09/30/19
[2019-09-29] MEDS: oxyCODONE HCL 5 MG TABLET PO PRN (13:55)
--- NOTE | 2019-09-29 14:27 | PN ---
Progress Note (short form) - Note Progress Note: Patient seen and examined Feels fatigued, nauseous Last Vital Signs Temp Pulse Resp BP Pulse Ox 97.6 F 83 18 126/62 96 09/29/19 06:20 09/29/19 06:20 09/29/19 06:20 09/29/19 06:20 09/28/19 21:00 Cor: RSR, No murmurs, No gallops Lungs: Clear to P&A Abd: Soft, Normal bowel sounds, No organomegaly Ext:3+ edema Abnormal Lab Results 09/28/19 09/29/19 09/29/19 06:30 05:40 05:40 RBC 2.43 L Hgb 7.5 L Hct 21.8 L RDW 16.1 H Plt Count 96 L D Neutrophils % 86.7 H Neutrophils % (Manual) 95.8 H Lymphocytes % (Manual) 2.1 L D Monocytes % (Manual) 2 L D Crossmatch See Detail Home Medication List Medication Instructions Recorded Confirmed Type Levothyroxine [Synthroid -] 50 mcg PO DAILY 03/04/19 09/18/19 History propRANOLol HCL [Inderal LA -] 60 mg PO DAILY 03/04/19 09/18/19 History Potassium Chloride [K-Dur -] 20 meq PO DAILY 09/13/19 09/18/19 History Active Medications Generic Name Dose Route Start Last Admin Trade Name Freq PRN Reason Stop Dose Admin Alprazolam 0.5 mg 09/24/19 10:00 09/29/19 06:41 Xanax - PO 0.5 mg Q24H PRN Administration ANXIETY Enoxaparin Sodium 120 mg 09/25/19 22:15 09/28/19 21:18 Lovenox - SQ 120 mg BID GABRIEL Administration Furosemide 40 mg 09/29/19 08:00 Lasix Injection - IVPUSH DAILY@0800 [facility] IV Flush 10 ml 09/29/19 01:20 Deric-Cath Flush IVPUSH PRN PRN protocol, maintain patency Vancomycin HCl 1,000 mg in 250 mls @ 166.667 mls/hr 09/23/19 13:00 09/29/19 01:46 Vancomycin (Pre-Docked) IVPB 166.667 mls/hr 0100,1300 GABRIEL Administration Protocol Ceftriaxone Sodium 2 gm/ 100 mls @ 100 mls/hr 09/23/19 13:00 09/28/19 10:46 Dextrose IVPB 100 mls/hr DAILY GABRIEL Administration Protocol Levothyroxine Sodium 50 mcg 09/24/19 07:00 09/29/19 06:42 Synthroid - PO 50 mcg DAILY@0700 GABRIEL Administration Loperamide HCl 2 mg 09/26/19 17:00 09/27/19 21:43 Imodium - PO 2 mg Q4H PRN Administration DIARRHEA Ondansetron HCl 8 mg 09/27/19 14:08 09/28/19 21:32 Zofran Injection IVPB 8 mg Q8H PRN Administration NAUSEA Oxycodone HCl 5 mg 09/23/19 19:29 09/27/19 01:31 Roxicodone - PO 5 mg Q8H PRN Administration PAIN LEVEL 7 - 10 Pantoprazole Sodium 40 mg 09/27/19 22:00 09/28/19 21:18 Protonix Iv IVPUSH 40 mg BID GABRIEL Administration Prochlorperazine Edisylate 10 mg 09/27/19 11:58 Compazine Injection - IVPB Q6H PRN NAUSEA AND/OR VOMITING Propranolol HCl 60 mg 09/24/19 10:00 09/28/19 10:48 Inderal La - PO 60 mg DAILY GABRIEL Administration Sertraline HCl 50 mg 09/28/19 10:15 09/28/19 10:46 Zoloft - PO 50 mg DAILY GABRIEL Administration Zolpidem Tartrate 5 mg 09/27/19 21:23 09/28/19 21:18 Ambien - PO 5 mg HS PRN Administration INSOMNIA A/P 69 y/o patient with poorly differentiated carcinoma of the liver ? intrahepatic cholangio ca vs gall bladder C2 D11 gem/ox. D8 gemzar held due to G3 thrombocytopenia Thrombocytopenia recovered. dosed gemzar 09/23 ?? cellulitis --on vanco /rcephin cultures negative b/l DVT ( diagnosed 09/25/19), RLL PE ( diagnosed 09/27/19)--on lovenox 120mg SC bid since 09/25/19 monitor CBC hold for platelets < 50,000 CT c/a/p per pancreatic protocol-- left hepatic lobe mass increased from 10cm to 12cm. Increased size and no.several left ( max. 2cm) and rt. hepatic lobe lesions ( max. 4.5cm). Mild ascites. Albumin 2.[address] scan 09/28 was not triple phase and was done 1 month prior to starting chemotherapy and hence ? comparison between these scans Discused overall imaging findings with patient ? continue gem-ox and close f/u imaging ? switch to FOLFIRI . awaiting foundation assay . Micro satellite stable,PDL1 CPS score-20%, Her2- by IHC patient to go for f/u at [facility] with Dr. Roland on 09/30/19
--- NOTE | 2019-09-29 18:52 | PN ---
Progress Note, Physician History of Present Illness: Pt seen and examined at bedside. She is awake and alert. She complains of edema. - Current Medication List Current Medications: Active Medications Alprazolam (Xanax -) 0.5 mg PO Q24H PRN PRN Reason: ANXIETY Last Admin: 09/29/19 06:41 Dose: 0.5 mg Enoxaparin Sodium (Lovenox -) 120 mg SQ BID [facility] Last Admin: 09/29/19 10:31 Dose: 120 mg Furosemide (Lasix Injection -) 40 mg IVPUSH DAILY@0800 [facility] Last Admin: 09/29/19 08:30 Dose: 40 mg IV Flush (Deric-Cath Flush) 10 ml IVPUSH PRN PRN PRN Reason: protocol, maintain patency Vancomycin HCl (Vancomycin (Pre-Docked)) 1,000 mg in 250 mls @ 166.667 mls/hr IVPB 0100,1300 [facility]; Protocol Last Admin: 09/29/19 13:45 Dose: 166.667 mls/hr Ceftriaxone Sodium 2 gm/ (Dextrose) 100 mls @ 100 mls/hr IVPB DAILY [facility]; Protocol Last Admin: 09/29/19 10:35 Dose: 100 mls/hr Levothyroxine Sodium (Synthroid -) 50 mcg PO DAILY@0700 [facility] Last Admin: 09/29/19 06:42 Dose: 50 mcg Loperamide HCl (Imodium -) 2 mg PO Q4H PRN PRN Reason: DIARRHEA Last Admin: 09/27/19 21:43 Dose: 2 mg Ondansetron HCl (Zofran Injection) 8 mg IVPB Q8H PRN PRN Reason: NAUSEA Last Admin: 09/28/19 21:32 Dose: 8 mg Oxycodone HCl (Roxicodone -) 5 mg PO Q8H PRN PRN Reason: PAIN LEVEL 7 - 10 Last Admin: 09/29/19 13:55 Dose: 5 mg Pantoprazole Sodium (Protonix Iv) 40 mg IVPUSH BID [facility] Last Admin: 09/29/19 10:31 Dose: 40 mg Prochlorperazine Edisylate (Compazine Injection -) 10 mg IVPB Q6H PRN PRN Reason: NAUSEA AND/OR VOMITING Propranolol HCl (Inderal La -) 60 mg PO DAILY [facility] Last Admin: 09/29/19 10:30 Dose: 60 mg Sertraline HCl (Zoloft -) 50 mg PO DAILY GAB[facility]EL Last Admin: 09/29/19 10:31 Dose: 50 mg Zolpidem Tartrate (Ambien -) 5 mg PO HS PRN PRN Reason: INSOMNIA Last Admin: 09/28/19 21:18 Dose: 5 mg - Objective Vital Signs: Vital Signs Temperature 97.5 F L 09/29/19 14:30 Pulse Rate 92 H 09/29/19 14:30 Respiratory Rate 20 09/29/19 14:30 Blood Pressure 111/58 L 09/29/19 14:30 O2 Sat by Pulse Oximetry (%) 97 09/29/19 09:00 Constitutional: Yes: Calm Eyes: Yes: Conjunctiva Clear HENT: Yes: Atraumatic Cardiovascular: Yes: S1, S2 Respiratory: Yes: CTA Bilaterally Gastrointestinal: Yes: Soft, Abdomen, Obese Genitourinary: Yes: WNL Musculoskeletal: Yes: WNL Edema: Yes Edema: LLE: 3+, RLE: 3+ Integumentary: Yes: Erythema Neurological: Yes: Oriented Psychiatric: Yes: Oriented Labs: CBC, BMP 09/29/19 05:40 09/28/19 06:30 INR, PTT INR 1.28 (0.83-1.09) H 09/26/19 05:35 Assessment/Plan Current Medications Generic Name Dose Route Start Last Admin Trade Name Freq PRN Reason Stop Dose Admin Alprazolam 0.5 mg 09/24/19 10:00 09/29/19 06:41 Xanax - PO 0.5 mg Q24H PRN Administration ANXIETY Enoxaparin Sodium 120 mg 09/25/19 22:15 09/29/19 10:31 Lovenox - SQ 120 mg BID GABRIEL Administration Furosemide 40 mg 09/29/19 08:00 09/29/19 08:30 Lasix Injection - IVPUSH 40 mg DAILY@0800 GABRIEL Administration IV Flush 10 ml 09/29/19 01:20 Deric-Cath Flush IVPUSH PRN PRN protocol, maintain patency Vancomycin HCl 1,000 mg in 250 mls @ 166.667 mls/hr 09/23/19 13:00 09/29/19 13:45 Vancomycin (Pre-Docked) IVPB 166.667 mls/hr 0100,1300 GABRIEL Administration Protocol Ceftriaxone Sodium 2 gm/ 100 mls @ 100 mls/hr 09/23/19 13:00 09/29/19 10:35 Dextrose IVPB 100 mls/hr DAILY GABRIEL Administration Protocol Levothyroxine Sodium 50 mcg 09/24/19 07:00 09/29/19 06:42 Synthroid - PO 50 mcg DAILY@0700 GABRIEL Administration Loperamide HCl 2 mg 09/26/19 17:00 09/27/19 21:43 Imodium - PO 2 mg Q4H PRN Administration DIARRHEA Ondansetron HCl 8 mg 09/27/19 14:08 09/28/19 21:32 Zofran Injection IVPB 8 mg Q8H PRN Administration NAUSEA Oxycodone HCl 5 mg 09/23/19 19:29 09/29/19 13:55 Roxicodone - PO 5 mg Q8H PRN Administration PAIN LEVEL 7 - 10 Pantoprazole Sodium 40 mg 09/27/19 22:00 09/29/19 10:31 Protonix Iv IVPUSH 40 mg BID GABRIEL Administration Prochlorperazine Edisylate 10 mg 09/27/19 11:58 Compazine Injection - IVPB Q6H PRN NAUSEA AND/OR VOMITING Propranolol HCl 60 mg 09/24/19 10:00 09/29/19 10:30 Inderal La - PO 60 mg DAILY GABRIEL Administration Sertraline HCl 50 mg 09/28/19 10:15 09/29/19 10:31 Zoloft - PO 50 mg DAILY GABRIEL Administration Zolpidem Tartrate 5 mg 09/27/19 21:23 09/28/19 21:18 Ambien - PO 5 mg HS PRN Administration INSOMNIA Impression 1. fluid overload 2. HTN 3. HLD 4. poorly differentiated carcinoma on biopsy of 11cm left lobe of the liver mass 5. hypothyroidism 6. elevated LDH 7. leukocytosis 8. UTI 9. cellulitis 10. PE Plan - discussed with oncology, pt going to [facility] tomorrow for second opinion - recommend lasix for edema - pt getting prbc - elevate legs when sitting
[2019-09-29] MEDS ORDERED: TBO-FILGRASTIM 480 MCG/0.8 ML DISP.SYRIN SQ ONE (20:41)
--- NOTE | 2019-09-29 20:44 | PN ---
Progress Note (short form) - Note Progress Note: Patient seen and examined Feels fatigued, nauseous Last Vital Signs Temp Pulse Resp BP Pulse Ox 97.6 F 83 18 126/62 96 09/29/19 06:20 09/29/19 06:20 09/29/19 06:20 09/29/19 06:20 09/28/19 21:00 Cor: RSR, No murmurs, No gallops Lungs: Clear to P&A Abd: Soft, Normal bowel sounds, No organomegaly Ext:3+ edema Abnormal Lab Results 09/28/19 09/29/19 09/29/19 06:30 05:40 05:40 RBC 2.43 L Hgb 7.5 L Hct 21.8 L RDW 16.1 H Plt Count 96 L D Neutrophils % 86.7 H Neutrophils % (Manual) 95.8 H Lymphocytes % (Manual) 2.1 L D Monocytes % (Manual) 2 L D Crossmatch See Detail Home Medication List Medication Instructions Recorded Confirmed Type Levothyroxine [Synthroid -] 50 mcg PO DAILY 03/04/19 09/18/19 History propRANOLol HCL [Inderal LA -] 60 mg PO DAILY 03/04/19 09/18/19 History Potassium Chloride [K-Dur -] 20 meq PO DAILY 09/13/19 09/18/19 History Active Medications Generic Name Dose Route Start Last Admin Trade Name Freq PRN Reason Stop Dose Admin Alprazolam 0.5 mg 09/24/19 10:00 09/29/19 06:41 Xanax - PO 0.5 mg Q24H PRN Administration ANXIETY Enoxaparin Sodium 120 mg 09/25/19 22:15 09/28/19 21:18 Lovenox - SQ 120 mg BID GABRIEL Administration Furosemide 40 mg 09/29/19 08:00 Lasix Injection - IVPUSH DAILY@0800 [facility] IV Flush 10 ml 09/29/19 01:20 Deric-Cath Flush IVPUSH PRN PRN protocol, maintain patency Vancomycin HCl 1,000 mg in 250 mls @ 166.667 mls/hr 09/23/19 13:00 09/29/19 01:46 Vancomycin (Pre-Docked) IVPB 166.667 mls/hr 0100,1300 GABRIEL Administration Protocol Ceftriaxone Sodium 2 gm/ 100 mls @ 100 mls/hr 09/23/19 13:00 09/28/19 10:46 Dextrose IVPB 100 mls/hr DAILY GABRIEL Administration Protocol Levothyroxine Sodium 50 mcg 09/24/19 07:00 09/29/19 06:42 Synthroid - PO 50 mcg DAILY@0700 GABRIEL Administration Loperamide HCl 2 mg 09/26/19 17:00 09/27/19 21:43 Imodium - PO 2 mg Q4H PRN Administration DIARRHEA Ondansetron HCl 8 mg 09/27/19 14:08 09/28/19 21:32 Zofran Injection IVPB 8 mg Q8H PRN Administration NAUSEA Oxycodone HCl 5 mg 09/23/19 19:29 09/27/19 01:31 Roxicodone - PO 5 mg Q8H PRN Administration PAIN LEVEL 7 - 10 Pantoprazole Sodium 40 mg 09/27/19 22:00 09/28/19 21:18 Protonix Iv IVPUSH 40 mg BID GABRIEL Administration Prochlorperazine Edisylate 10 mg 09/27/19 11:58 Compazine Injection - IVPB Q6H PRN NAUSEA AND/OR VOMITING Propranolol HCl 60 mg 09/24/19 10:00 09/28/19 10:48 Inderal La - PO 60 mg DAILY GABRIEL Administration Sertraline HCl 50 mg 09/28/19 10:15 09/28/19 10:46 Zoloft - PO 50 mg DAILY GABRIEL Administration Zolpidem Tartrate 5 mg 09/27/19 21:23 09/28/19 21:18 Ambien - PO 5 mg HS PRN Administration INSOMNIA A/P 69 y/o patient with poorly differentiated carcinoma of the liver ? intrahepatic cholangio ca vs gall bladder C2 D11 gem/ox. D8 gemzar held due to G3 thrombocytopenia Thrombocytopenia recovered. dosed gemzar 09/23 ?? cellulitis --on vanco /rcephin cultures negative b/l DVT ( diagnosed 09/25/19), RLL PE ( diagnosed 09/27/19)--on lovenox 120mg SC bid since 09/25/19 monitor CBC hold for platelets < 50,000 CT c/a/p per pancreatic protocol-- left hepatic lobe mass increased from 10cm to 12cm. Increased size and no.several left ( max. 2cm) and rt. hepatic lobe lesions ( max. 4.5cm). Mild ascites. Albumin 2.[address] scan 09/28 was not triple phase and was done 1 month prior to starting chemotherapy Discused overall imaging findings with patient Micro satellite stable,PDL1 CPS score-20%, Her2- by IHC To f/u foundation assay patient to f/u at [facility] with Dr. Roland on 09/30/19
[2019-09-29 21:07] LABS: BASO % 0.2 % (0-2.0); EOS % 0.3 % (0-4.5); HEMATOCRIT 24.4 % (32.4-45.2); LYMPH % 8.7 % (8-40); MCH 29.7 pg (25.7-33.7); MCHC 32.9 g/dl (32.0-36.0); MEAN CELL VOLUME 90.2 fl (80-96); MEAN PLT VOLUME 8.9 fl (7.5-11.1); NEUT % 84.8 % (42.8-82.8); PLATELET COUNT 62 K/MM3 (134-434); RDW 15.7 % (11.6-15.6); WHITE BLOOD COUNT 14.1 K/mm3 (4.0-10.0)
[2019-09-29 21:31] LABS: ALBUMIN 2.2 g/dl (3.4-5.0); BILIRUBIN,TOTAL 0.9 mg/dL (0.2-1); BLOOD UREA NITROGEN 40.4 mg/dL (7-18); CREATININE 1.2 mg/dL (0.55-1.3); POTASSIUM 3.1 mmol/L (3.5-5.1); TOT PROT 4.8 g/dl (6.4-8.2)
[2019-09-29 21:32] LABS: PLATELET ESTIMATE DECREASED
[2019-09-29] MEDS ORDERED: POTASSIUM CHLORIDE TABS 20 MEQ TABLET.ER (FP) PO ONE ×2 (21:55→23:45)
[2019-09-29] MEDS ORDERED: POTASSIUM CHLORIDE ORAL LIQUID 20 MEQ/15 ML PO ONE (21:56)
[2019-09-29] MEDS ORDERED: KCL 10 MEQ IVPB 10 MEQ/100 ML INFUS.BAG IVPB SCH (22:00)
[2019-09-29] MEDS: LOPERAMIDE HCL 2 MG CAPSULE PO PRN (23:36)
[2019-09-30] MEDS: VANCOMYCIN 1 GRAM (PRE-DOCKED) 1,000 MG/250 ML BAG IVPB SCH (04:58)
[2019-09-30] MEDS: oxyCODONE HCL 5 MG TABLET PO PRN (05:54)
[2019-09-30 05:55] LABS: BASO % 0.1 % (0-2.0); EOS % 0.4 % (0-4.5); HEMATOCRIT 28.5 % (32.4-45.2); HEMOGLOBIN 9.6 GM/dL (10.7-15.3); MCH 30.2 pg (25.7-33.7); MCHC 33.8 g/dl (32.0-36.0); MEAN CELL VOLUME 89.3 fl (80-96); MEAN PLT VOLUME 8.8 fl (7.5-11.1); MONO % 6.6 % (3.8-10.2); NEUT % 83.9 % (42.8-82.8); PLATELET COUNT 56 K/MM3 (134-434); RBC 3.19 M/mm3 (3.60-5.2); RDW 15.7 % (11.6-15.6); WHITE BLOOD COUNT 19.6 K/mm3 (4.0-10.0)
[2019-09-30 06:51] LABS: ALBUMIN 2.4 g/dl (3.4-5.0); BILIRUBIN,TOTAL 1.3 mg/dL (0.2-1); BLOOD UREA NITROGEN 43.3 mg/dL (7-18); CALCIUM 8.5 mg/dL (8.5-10.1); CREATININE 1.2 mg/dL (0.55-1.3); POTASSIUM 3.5 mmol/L (3.5-5.1); TOT PROT 5.1 g/dl (6.4-8.2)
[2019-09-30] MEDS: ONDANSETRON 4 MG/2 ML VIAL IVPB PRN (06:53)
[2019-09-30] MEDS: LEVOTHYROXINE NA 50 MCG TABLET (FP) PO SCH (06:53)
[2019-09-30] MEDS: LOPERAMIDE HCL 2 MG CAPSULE PO PRN (06:55)
[2019-09-30 08:32] VITALS: BP 116/57; PULSE 82; TEMP 97.6
[2019-09-30] MEDS: ENOXAPARIN NA (PORCINE) 120 MG/0.8 ML DISP.SYRIN SQ SCH (08:37)
[2019-09-30] MEDS ORDERED: POTASSIUM CHLORIDE TABS 20 MEQ TABLET.ER (FP) PO ONE (08:45)
[2019-09-30 12:16] LABS: ANISOCYTOSIS 0; MACROCYTOSIS 0; PLATELET ESTIMATE DECREASED
== END 2019-09-30 09:08 | disposition home or self-care (01) | DRG 640 ==
LOC: JONCCHEMO 08:02 → J7W 10:41 → JONCCHEMO 20:50
PROVIDERS: ADMIT Internal Medicine Hematology & Oncology; ATTEND Internal Medicine Hematology & Oncology
DX: E87.70 Fluid overload, unspecified (principal); I26.99 Other pulmonary embolism without acute cor pulmonale; L03.119 Cellulitis of unspecified part of limb; C22.1 Intrahepatic bile duct carcinoma; N39.0 Urinary tract infection, site not specified; L03.116 Cellulitis of left lower limb; L03.115 Cellulitis of right lower limb; I82.4Z3 Acute embolism and thrombosis of unspecified deep veins of distal lower extremity, bilateral; J98.11 Atelectasis; R18.8 Other ascites; E03.9 Hypothyroidism, unspecified; I10 Essential (primary) hypertension; E78.5 Hyperlipidemia, unspecified; K80.20 Calculus of gallbladder without cholecystitis without obstruction; D72.829 Elevated white blood cell count, unspecified; D64.9 Anemia, unspecified; E87.6 Hypokalemia; E87.1 Hypo-osmolality and hyponatremia; R11.0 Nausea; D69.6 Thrombocytopenia, unspecified; Z90.49 Acquired absence of other specified parts of digestive tract; Z87.19 Personal history of other diseases of the digestive system
CPT/HCPCS: 36415; 36430; 36511; 71260-TC; 74178-TC; 80053; 83735; 85025; 85027; 85610; 85730; 86850; 86900; 86901; 86922; 87040; 87086; 93970-TC; G0480; J1447; J2469; J2997; J7030; P9038; P9058; Q9967

== ENCOUNTER 2019-09-30 13:45 | Inpatient (IN) | payer OTHER ==
[2019-09-30 15:17] VITALS: BMI 41.6
[2019-09-30] MEDS ORDERED: LOPERAMIDE HCL 2 MG CAPSULE PO PRN ×3 (15:23→20:04)
[2019-09-30] MEDS ORDERED: oxyCODONE HCL 5 MG TABLET PO PRN (15:23)
[2019-09-30] MEDS ORDERED: ALPRAZolam 0.25 MG TABLET PO PRN (15:23)
[2019-09-30] MEDS ORDERED: FUROSEMIDE 40 MG TABLET (FP) PO SCH (15:30)
[2019-09-30] MEDS ORDERED: FUROSEMIDE 40 MG/4 ML INJECTABLE VIAL IVPUSH ONE (15:57)
[2019-09-30] MEDS ORDERED: FUROSEMIDE 100 MG/10 ML INJECTABLE VIAL IVPUSH SCH (16:00)
[2019-09-30] MEDS ORDERED: FUROSEMIDE 40 MG/4 ML INJECTABLE VIAL IVPUSH SCH (16:00)
[2019-09-30] MEDS ORDERED: ONDANSETRON 4 MG/2 ML VIAL IVPB PRN (16:10)
[2019-09-30] MEDS ORDERED: ZOLPIDEM TARTRATE 5 MG TABLET PO PRN (16:11)
[2019-09-30] MEDS ORDERED: ENOXAPARIN NA (PORCINE) 120 MG/0.8 ML DISP.SYRIN SQ SCH ×2 (16:15→22:00)
--- NOTE | 2019-09-30 17:17 | HP ---
Admitting History and Physical - Past Medical History Cardiovascular: Yes: HTN, Hyperlipdemia Gastrointestinal: Yes: Diverticulitis Hepatobiliary: Yes: Cholelithiasis Renal/: Yes: Renal Inusuff ...: No Endocrine: Yes: Hypothyroidism - Past Surgical History Past Surgical History: Yes: Appendectomy, Breast Biopsy (benign left breast biopsy), Colectomy (laparoscopic sigmoid resection ), Colonoscopy, Laminectomy - Smoking History Smoking history: Former smoker Have you smoked in the past 12 months: No Aproximately how many cigarettes per day: 0 If you are a former smoker, when did you quit?: 1994 - Alcohol/Substance Use Hx Alcohol Use: No History of Substance Use: reports: None - Social History ADL: Independent 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 Home Medications - Allergies Allergies/Adverse Reactions: Allergies Allergy/AdvReac Type Severity Reaction Status Date / Time No Known Drug Allergies Allergy Verified 08/25/19 13:07 - Home Medications Home Medications: Ambulatory Orders Levothyroxine [Synthroid -] 50 mcg PO DAILY 03/04/19 propRANOLol HCL [Inderal LA -] 60 mg PO DAILY 03/04/19 Potassium Chloride [K-Dur -] 20 meq PO DAILY 09/13/19 Alprazolam [Xanax] 0.5 mg PO Q12H PRN tablet MDD 2 09/21/19 Cephalexin Monohydrate [Keflex -] 500 mg PO TID 10 Days #30 capsule 09/21/19 Furosemide [Lasix -] 40 mg PO DAILY #30 tablet 09/21/19 Loperamide HCl [Imodium -] 2 mg PO Q6H PRN 30 Days capsule MDD 4 09/21/19 Pantoprazole Sodium [Protonix -] 40 mg PO DAILY #30 tablet.ec 09/21/19 oxyCODONE HCL [Roxicodone -] 5 mg PO Q6H PRN tablet MDD 4 09/21/19 Physical Examination Vital Signs: Vital Signs Temperature 97.7 F 09/30/19 14:58 Pulse Rate 82 09/30/19 14:58 Respiratory Rate 18 09/30/19 14:58 Blood Pressure 111/55 L 09/30/19 14:58 O2 Sat by Pulse Oximetry (%) 97 09/30/19 13:45
[2019-09-30] MEDS ORDERED: VANCOMYCIN 1 GRAM (PRE-DOCKED) 1,000 MG/250 ML BAG IVPB SCH (19:30)
--- NOTE | 2019-09-30 19:58 | CONSULT ---
Consult Consult Specialty:: Nephrology Reason for Consultation:: fluid overload - History of Present Illness Chief Complaint: fluid overload History of Present Illness: Please see previous h and p. Pt went to [facility] for second opinion. She came back this afternoon. She complains of edema. - History Source History Provided By: Patient - Past Medical History Cardio/Vascular: Yes: HTN, Hyperlipdemia Gastrointestinal: Yes: Diverticulitis Hepatobiliary: Yes: Cholelithiasis Renal/: Yes: Renal Inusuff ...: No Endocrine: Yes: Hypothyroidism - Past Surgical History Past Surgical History: Yes: Appendectomy, Breast Biopsy (benign left breast biopsy), Colectomy (laparoscopic sigmoid resection ), Colonoscopy, Laminectomy - Alcohol/Substance Use Hx Alcohol Use: No History of Substance Use: reports: None - Smoking History Smoking history: Former smoker Have you smoked in the past 12 months: No Aproximately how many cigarettes per day: 0 If you are a former smoker, when did you quit?: 1994 - Social History Usual Living Arrangement: Alone ADL: Independent 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 Home Medications - Allergies Allergies/Adverse Reactions: Allergies Allergy/AdvReac Type Severity Reaction Status Date / Time No Known Drug Allergies Allergy Verified 08/25/19 13:07 - Home Medications Home Medications: Ambulatory Orders Levothyroxine [Synthroid -] 50 mcg PO DAILY 03/04/19 propRANOLol HCL [Inderal LA -] 60 mg PO DAILY 03/04/19 Potassium Chloride [K-Dur -] 20 meq PO DAILY 09/13/19 Alprazolam [Xanax] 0.5 mg PO Q12H PRN tablet MDD 2 09/21/19 Cephalexin Monohydrate [Keflex -] 500 mg PO TID 10 Days #30 capsule 09/21/19 Furosemide [Lasix -] 40 mg PO DAILY #30 tablet 09/21/19 Loperamide HCl [Imodium -] 2 mg PO Q6H PRN 30 Days capsule MDD 4 09/21/19 Pantoprazole Sodium [Protonix -] 40 mg PO DAILY #30 tablet.ec 09/21/19 oxyCODONE HCL [Roxicodone -] 5 mg PO Q6H PRN tablet MDD 4 09/21/19 Family Medical History Family History: Denies Review of Systems - Review of Systems Constitutional: reports: Malaise Physical Exam Vital Signs: Vital Signs Temperature 98.2 F 09/30/19 16:20 Pulse Rate 84 09/30/19 16:20 Respiratory Rate 19 09/30/19 16:20 Blood Pressure 137/66 09/30/19 16:20 O2 Sat by Pulse Oximetry (%) 97 09/30/19 13:45 Constitutional: Yes: Calm Eyes: Yes: Conjunctiva Clear HENT: Yes: Atraumatic Cardiovascular: Yes: S1, S2 Respiratory: Yes: CTA Bilaterally Gastrointestinal: Yes: Soft, Abdomen, Obese Renal/: Yes: WNL Edema: Yes Edema: LLE: 3+, RLE: 3+ Neurological: Yes: Oriented Psychiatric: Yes: Oriented Labs: Laboratory Tests 09/23/19 09/23/19 09/30/19 11:52 11:52 05:20 WBC 20.6 H Hgb 10.7 Plt Count 155 D Sodium 139 133 L Potassium 3.6 3.5 BUN 29.5 H 43.3 H Creatinine 0.8 1.2 Assessment/Plan Current Medications Generic Name Dose Route Start Last Admin Trade Name Freq PRN Reason Stop Dose Admin Alprazolam 0.5 mg 09/30/19 15:23 09/30/19 19:09 Xanax - PO 0.5 mg Q12H PRN Administration ANXIETY Cephalexin HCl 500 mg 09/30/19 22:00 Keflex - PO TID GABRIEL Furosemide 40 mg 10/01/19 10:00 Lasix Injection - IVPUSH DAILY [facility] Vancomycin HCl 1,000 mg in 250 mls @ 166.667 mls/hr 09/30/19 19:30 Vancomycin (Pre-Docked) IVPB Q24H [facility] Protocol Levothyroxine Sodium 50 mcg 10/01/19 07:00 Synthroid - PO 0700 GABRIEL Loperamide HCl 2 mg 09/30/19 15:23 Imodium - PO Q6H PRN DIARRHEA Ondansetron HCl 8 mg 09/30/19 16:10 Zofran Injection IVPB Q8H PRN NAUSEA Oxycodone HCl 5 mg 09/30/19 15:23 Roxicodone - PO Q6H PRN PAIN LEVEL 6-10 Pantoprazole Sodium 40 mg 10/01/19 10:00 Protonix - PO DAILY [facility] Potassium Chloride 20 meq 10/01/19 10:00 K-Dur - PO DAILY GABRIEL Propranolol HCl 60 mg 10/01/19 10:00 Inderal La - PO DAILY GABRIEL Zolpidem Tartrate 5 mg 09/30/19 16:11 Ambien - PO HS PRN INSOMNIA Impression 1. fluid overload 2. HTN 3. HLD 4. poorly differentiated carcinoma on biopsy of 11cm left lobe of the liver mass 5. hypothyroidism 6. elevated LDH 7. leukocytosis 8. UTI 9. cellulitis 10. PE Plan - cont with lasix - pt had second opinion - monitor lytes - discussed with oncology - a/c for PE per medical team
--- NOTE | 2019-09-30 20:07 | HP ---
History and Physical History and Physical: Patient seen and examined 69 y/o patient with cholangiocarcinoma for C2 D18 gemzar/oxaliplatin No fever/chills/cough/shortness of breath Last Vital Signs Temp Pulse Resp BP Pulse Ox 98.2 F 84 19 137/66 97 09/30/19 16:20 09/30/19 16:20 09/30/19 16:20 09/30/19 16:20 09/30/19 13:45 Cor: RSR, No murmurs, No gallops Lungs: Clear to P&A Abd: Soft, Normal bowel sounds, No organomegaly Ext:3+ edema/erythema Active Medications Generic Name Dose Route Start Last Admin Trade Name Freq PRN Reason Stop Dose Admin Alprazolam 0.5 mg 10/01/19 10:00 Xanax - PO Q24H PRN ANXIETY Vancomycin HCl 1,000 mg in 250 mls @ 166.667 mls/hr 09/30/19 19:30 Vancomycin (Pre-Docked) IVPB Q24H GABRIEL Protocol Levothyroxine Sodium 50 mcg 10/01/19 07:00 Synthroid - PO 0700 GABRIEL Loperamide HCl 2 mg 09/30/19 20:04 Imodium - PO Q6H PRN DIARRHEA Ondansetron HCl 8 mg 09/30/19 16:10 Zofran Injection IVPB Q8H PRN NAUSEA Oxycodone HCl 5 mg 09/30/19 20:04 Roxicodone - PO Q8H PRN PAIN LEVEL 6-10 Pantoprazole Sodium 40 mg 10/01/19 10:00 Protonix - PO DAILY GABRIEL Potassium Chloride 20 meq 10/01/19 10:00 K-Dur - PO DAILY GABRIEL Propranolol HCl 60 mg 10/01/19 10:00 Inderal La - PO DAILY GABRIEL Zolpidem Tartrate 5 mg 09/30/19 16:11 Ambien - PO HS PRN INSOMNIA Labs reviewed A/P 69 y/o patient with gallbladder vs intrahepatic cholangiocarcinoma, C2 D18 gem/ ox. Progression of disease Worsening performance status Was seen by Dr. Roland at [facility] today -- progression of disease--will await foundation assay ?trial of abraxane ? pembrolizumab Will check CBC prior to dosing lovenox this evening Monitor CMP and diurese accordingly On vancomycin once daily for presumed cellulitis ID/renal consults
[2019-09-30] MEDS: oxyCODONE HCL 5 MG TABLET PO PRN (21:29)
[2019-09-30 21:45] LABS: BASO % 0.1 % (0-2.0); EOS % 0.5 % (0-4.5); HEMOGLOBIN 9.3 GM/dL (10.7-15.3); LYMPH % 9.6 % (8-40); MCH 29.6 pg (25.7-33.7); MCHC 33.1 g/dl (32.0-36.0); MEAN CELL VOLUME 89.3 fl (80-96); MEAN PLT VOLUME 9.6 fl (7.5-11.1); NEUT % 82.8 % (42.8-82.8); RBC 3.14 M/mm3 (3.60-5.2); RDW 15.6 % (11.6-15.6)
[2019-09-30 21:55] LABS: INR 1.25 (0.83-1.09); PROTHROMBIN TIME (PATIENT) 14.8 SEC (9.7-13.0)
[2019-09-30 21:57] LABS: ACTIVATED PTT 55.7 SECONDS (25.2-36.5)
[2019-09-30] MEDS ORDERED: CEPHALEXIN MONOHYDRATE 500 MG CAPSULE (UD) PO SCH (22:00)
[2019-09-30] MEDS ORDERED: HEPARIN NA (PORCINE) 5,000 UNITS/ML 1ML VIAL SQ SCH (22:00)
[2019-09-30 22:08] LABS: PLATELET COUNT 55 K/MM3 (134-434); WHITE BLOOD COUNT 29.2 K/mm3 (4.0-10.0)
[2019-09-30 22:51] LABS: PLATELET ESTIMATE DECREASED
[2019-09-30] MEDS ORDERED: ENOXAPARIN NA (PORCINE) 60 MG/0.6 ML DISP.SYRIN SQ ONE (23:45)
[2019-10-01] MEDS: LEVOTHYROXINE NA 50 MCG TABLET (FP) PO SCH (06:18)
[2019-10-01 07:34] LABS: BASO % 0.3 % (0-2.0); EOS % 0.5 % (0-4.5); HEMATOCRIT 28.1 % (32.4-45.2); HEMOGLOBIN 9.5 GM/dL (10.7-15.3); LYMPH % 9.9 % (8-40); MCHC 33.8 g/dl (32.0-36.0); MEAN PLT VOLUME 9.2 fl (7.5-11.1); MONO % 6.2 % (3.8-10.2); NEUT % 83.1 % (42.8-82.8); PLATELET COUNT 63 K/MM3 (134-434); RBC 3.16 M/mm3 (3.60-5.2); RDW 15.9 % (11.6-15.6)
[2019-10-01 08:07] LABS: INR 1.23 (0.83-1.09); PROTHROMBIN TIME (PATIENT) 14.5 SEC (9.7-13.0)
[2019-10-01 08:10] LABS: ACTIVATED PTT 38.9 SECONDS (25.2-36.5)
[2019-10-01 08:17] LABS: ALBUMIN 2.4 g/dl (3.4-5.0); BILIRUBIN,TOTAL 1.2 mg/dL (0.2-1); BLOOD UREA NITROGEN 45.9 mg/dL (7-18); CALCIUM 8.4 mg/dL (8.5-10.1); CREATININE 1.4 mg/dL (0.55-1.3); POTASSIUM 3.4 mmol/L (3.5-5.1); TOT PROT 5.1 g/dl (6.4-8.2)
[2019-10-01] MEDS ORDERED: FUROSEMIDE 40 MG/4 ML INJECTABLE VIAL IVPUSH SCH (10:00)
[2019-10-01] MEDS ORDERED: ALPRAZolam 0.25 MG TABLET PO PRN (10:00)
[2019-10-01] MEDS: ENOXAPARIN NA (PORCINE) 120 MG/0.8 ML DISP.SYRIN SQ SCH ×2 (10:25→21:28)
[2019-10-01] MEDS: POTASSIUM CHLORIDE TABS 20 MEQ TABLET.ER (FP) PO SCH (10:25)
[2019-10-01] MEDS: PANTOPRAZOLE 40 MG TABLET PO SCH (10:26)
[2019-10-01 12:00] LABS: ANISOCYTOSIS 1+; MACROCYTOSIS 0; PLATELET ESTIMATE DECREASED
[2019-10-01] MEDS ORDERED: PT OWN MED DRAWER 7, Y5N ONE ×2 (12:43→20:20)
--- NOTE | 2019-10-01 16:34 | PN ---
Progress Note (short form) - Note Progress Note: ID consult dictated bilateral lower extremity erythema cholangiocarcinoma leukocytosis secondary to neulasta bilateral DVT PE anasarca no response of erythema to 8 days of ceftriaxone /vancomycin suspect this is due to her new DVTs blood cultures observe off antibiotics, leg erythema was marked Problem List - Problems (1) Leg erythema Code(s): L53.9 - ERYTHEMATOUS CONDITION, UNSPECIFIED (2) DVT (deep venous thrombosis) Code(s): I82.409 - ACUTE EMBOLISM AND THOMBOS UNSP DEEP VN UNSP LOWER EXTREMITY (3) Edema leg Code(s): R60.0 - LOCALIZED EDEMA (4) Pulmonary emboli Code(s): I26.99 - OTHER PULMONARY EMBOLISM WITHOUT ACUTE COR PULMONALE (5) 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 - INTRAHEPATIC BILE DUCT CARCINOMA
--- NOTE | 2019-10-01 17:01 | CONS ---
INFECTIOUS DISEASE CONSULTATION DATE OF CONSULTATION: DATE OF DICTATION: 10/01/2019 HISTORY: This is a 69-year-old woman with a recent diagnosis of cholangiocarcinoma. She has anasarca. She was recently admitted to the hospital from September 23 to September 30 where she was treated with vancomycin and cefoxitin for bilateral lower extremity cellulitis with no real improvement in her symptoms. As well, she was diagnosed then with bilateral DVTs. I am asked to see her to see if she still needs any antibiotics. Of note, her white count is elevated. I spoke with Dr. Finch who reports that this is due to her Neulasta. Patient is afebrile. She is extremely depressed. Apparently, repeat imaging has revealed no response for her cancer, which appears to be enlarging at this time. PAST MEDICAL HISTORY: Notable for history of hypertension, hyperlipidemia, diverticulitis, cholelithiasis, renal insufficiency, hypothyroidism. SURGICAL HISTORY: Notable for appendectomy. She has had a benign left breast biopsy in the past, laparoscopic sigmoid resection, and laminectomy. SOCIAL HISTORY: There is no history of alcohol use. She is a former smoker. She is independent. 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 ALLERGIES: She has no known drug allergies. MEDICATIONS: Include Synthroid, Inderal, K-Dur, alprazolam, cephalexin, which she was on as an outpatient, Lasix, Imodium, Protonix, and Roxicodone. REVIEW OF SYSTEMS: She reports extreme fatigue but denies any fever or chills. PHYSICAL EXAMINATION: Vital Signs: Her temperature is 97.4, pulse of 87, blood pressure 116/60, respiratory rate is 18, saturating 98% on 2 L. HEENT: She is normocephalic. Her eyes are anicteric. Neck: Supple. Lungs: Diminished breath sounds at the bases. Heart: Regular rate and rhythm. Abdomen: Soft, nontender. Extremities: Notable for bilateral 3+ pitting edema. She has some mild erythema of the lower legs, which is unchanged from her last admission. In summary, this is a 69-year-old woman with cholangiocarcinoma who has had recent PE and bilateral DVTs. I suspect her erythema of her legs, which are bilateral and symmetric are related to the DVTs, and this is not an acute cellulitis. Her white count is explained by the recent Neulasta. I would obtain surveillance blood cultures. Given the lack of response to vancomycin and ceftriaxone over the last 5 days, I think it would be reasonable to observe her off antibiotics. Her legs were marked so that we know the extent of the erythema. Case was discussed with Dr. Finch. KRISTINA GEORGE M.D. ESTEFANY/[id number]
--- NOTE | 2019-10-01 17:17 | PN ---
Progress Note, Physician History of Present Illness: Pt seen and examined at bedside. SHe is awake and alert. She complains of edema. - Current Medication List Current Medications: Active Medications Alprazolam (Xanax -) 0.5 mg PO Q24H PRN PRN Reason: ANXIETY Last Admin: 10/01/19 15:10 Dose: 0.5 mg Enoxaparin Sodium (Lovenox -) 120 mg SQ BID [facility] Last Admin: 10/01/19 10:25 Dose: 120 mg Levothyroxine Sodium (Synthroid -) 50 mcg PO 0700 [facility] Last Admin: 10/01/19 06:18 Dose: 50 mcg Loperamide HCl (Imodium -) 2 mg PO Q6H PRN PRN Reason: DIARRHEA Ondansetron HCl (Zofran Injection) 8 mg IVPB Q8H PRN PRN Reason: NAUSEA Oxycodone HCl (Roxicodone -) 5 mg PO Q8H PRN PRN Reason: PAIN LEVEL 6-10 Last Admin: 09/30/19 21:29 Dose: 5 mg Pantoprazole Sodium (Protonix -) 40 mg PO DAILY [facility] Last Admin: 10/01/19 10:26 Dose: 40 mg Potassium Chloride (K-Dur -) 20 meq PO DAILY [facility] Last Admin: 10/01/19 10:25 Dose: 20 meq Propranolol HCl (Inderal La -) 60 mg PO DAILY [facility] Last Admin: 10/01/19 10:26 Dose: 60 mg Zolpidem Tartrate (Ambien -) 5 mg PO HS PRN PRN Reason: INSOMNIA Last Admin: 09/30/19 21:30 Dose: 5 mg - Objective Vital Signs: Vital Signs Temperature 97.4 F L 10/01/19 09:00 Pulse Rate 87 10/01/19 09:00 Respiratory Rate 18 10/01/19 09:00 Blood Pressure 116/60 10/01/19 09:00 O2 Sat by Pulse Oximetry (%) 98 10/01/19 09:00 Constitutional: Yes: Calm Eyes: Yes: Conjunctiva Clear HENT: Yes: Atraumatic Neck: Yes: Supple Cardiovascular: Yes: S1, S2 Respiratory: Yes: CTA Bilaterally Gastrointestinal: Yes: Soft Genitourinary: Yes: WNL Musculoskeletal: Yes: WNL Edema: Yes Edema: LLE: 3+, RLE: 3+ Neurological: Yes: Oriented Labs: CBC, BMP 10/01/19 06:10 10/01/19 06:10 INR, PTT INR 1.23 (0.83-1.09) H 10/01/19 06:10 Fibrinogen Cancelled 10/01/19 06:10 Assessment/Plan Current Medications Generic Name Dose Route Start Last Admin Trade Name Freq PRN Reason Stop Dose Admin Alprazolam 0.5 mg 10/01/19 10:00 10/01/19 15:10 Xanax - PO 0.5 mg Q24H PRN Administration ANXIETY Enoxaparin Sodium 120 mg 10/01/19 10:00 10/01/19 10:25 Lovenox - SQ 120 mg BID [facility] Administration Levothyroxine Sodium 50 mcg 10/01/19 07:00 10/01/19 06:18 Synthroid - PO 50 mcg 0700 [facility] Administration Loperamide HCl 2 mg 09/30/19 20:04 Imodium - PO Q6H PRN DIARRHEA Ondansetron HCl 8 mg 09/30/19 16:10 Zofran Injection IVPB Q8H PRN NAUSEA Oxycodone HCl 5 mg 09/30/19 20:04 09/30/19 21:29 Roxicodone - PO 5 mg Q8H PRN Administration PAIN LEVEL 6-10 Pantoprazole Sodium 40 mg 10/01/19 10:00 10/01/19 10:26 Protonix - PO 40 mg DAILY [facility] Administration Potassium Chloride 20 meq 10/01/19 10:00 10/01/19 10:25 K-Dur - PO 20 meq DAILY [facility] Administration Propranolol HCl 60 mg 10/01/19 10:00 10/01/19 10:26 Inderal La - PO 60 mg DAILY [facility] Administration Zolpidem Tartrate 5 mg 09/30/19 16:11 09/30/19 21:30 Ambien - PO 5 mg HS PRN Administration INSOMNIA Impression 1. fluid overload 2. HTN 3. HLD 4. poorly differentiated carcinoma on biopsy of 11cm left lobe of the liver mass 5. hypothyroidism 6. elevated LDH 7. leukocytosis 8. UTI 9. cellulitis 10. PE Plan - recommend lasix 40 mg iv daily - replace potassium - pt remains overloaded - oncology follow up - a/c for PE per medical team
--- NOTE | 2019-10-01 19:53 | PN ---
Progress Note (short form) - Note Progress Note: PAtient seen and examined c/o generalized fatigue Last Vital Signs Temp Pulse Resp BP Pulse Ox 98.8 F 83 20 105/55 L 98 10/01/19 18:00 10/01/19 18:00 10/01/19 18:00 10/01/19 18:00 10/01/19 09:00 Cor: RSR, No murmurs, No gallops Lungs: Clear to P&A Abd: Soft, Normal bowel sounds, No organomegaly Ext:No significant edema Labs/meds reviewed A/P 69 y/o patient with cholangiocarcinoma, locally advanced , now with progressive disease on gemzar/oxaliplatin C2D18 Fluid overload worsening performance status Dcubitus ulcer anxiety DVT/PE--on lovenox thrombocytopenia improving
[2019-10-01] MEDS: ALPRAZolam 0.25 MG TABLET PO PRN (20:38)
[2019-10-02] MEDS ORDERED: PORTA CATH FLUSH 10 ML IVPUSH PRN (01:13)
[2019-10-02] MEDS: oxyCODONE HCL 5 MG TABLET PO PRN ×3 (02:10→21:06)
[2019-10-02] MEDS: LEVOTHYROXINE NA 50 MCG TABLET (FP) PO SCH (06:09)
[2019-10-02] MEDS: POTASSIUM CHLORIDE TABS 20 MEQ TABLET.ER (FP) PO SCH (09:48)
[2019-10-02] MEDS: PANTOPRAZOLE 40 MG TABLET PO SCH (09:48)
[2019-10-02] MEDS: ENOXAPARIN NA (PORCINE) 120 MG/0.8 ML DISP.SYRIN SQ SCH ×2 (09:52→21:05)
--- NOTE | 2019-10-02 10:25 | PN ---
Progress Note (short form) - Note Progress Note: Renal follow up for fluid overload Coverage for Dr. Garza Seen and examined at the bedside reports feeling uncomfortable and having a feeling she cannot catch her breath denies any N/V poor oral intake leg remain swollen Vital Signs Temperature 98 F 10/02/19 06:18 Pulse Rate 85 10/02/19 06:18 Respiratory Rate 16 10/02/19 06:18 Blood Pressure 115/64 10/02/19 06:18 O2 Sat by Pulse Oximetry (%) 98 10/01/19 21:00 Intake & Output 09/29/19 09/30/19 10/01/19 10/02/19 23:59 23:59 23:59 23:59 Intake Total 250 300 100 Output Total 100 Balance 150 300 100 Weight 120.656 kg NAD CTA soft, NT/ND Abd ++ edema in LE CBC, BMP 10/01/19 06:10 10/01/19 06:10 Laboratory Tests 10/01/19 06:10 Calcium 8.4 L Albumin 2.4 L Current Medications Alprazolam (Xanax -) 0.5 mg PO Q12H PRN PRN Reason: ANXIETY Last Admin: 10/01/19 20:38 Dose: 0.5 mg Enoxaparin Sodium (Lovenox -) 120 mg SQ BID [facility] Last Admin: 10/02/19 09:52 Dose: 120 mg IV Flush (Deric-Cath Flush) 10 ml IVPUSH PRN PRN PRN Reason: protocol, maintain patency Levothyroxine Sodium (Synthroid -) 50 mcg PO 0700 [facility] Last Admin: 10/02/19 06:09 Dose: 50 mcg Loperamide HCl (Imodium -) 2 mg PO Q6H PRN PRN Reason: DIARRHEA Ondansetron HCl (Zofran Injection) 8 mg IVPB Q8H PRN PRN Reason: NAUSEA Oxycodone HCl (Roxicodone -) 5 mg PO Q8H PRN PRN Reason: PAIN LEVEL 6-10 Last Admin: 10/02/19 09:49 Dose: 5 mg Pantoprazole Sodium (Protonix -) 40 mg PO DAILY [facility] Last Admin: 10/02/19 09:48 Dose: 40 mg Potassium Chloride (K-Dur -) 20 meq PO DAILY [facility] Last Admin: 10/02/19 09:48 Dose: 20 meq Propranolol HCl (Inderal La -) 60 mg PO DAILY [facility] Last Admin: 10/02/19 09:48 Dose: 60 mg Impression 1. fluid overload 2. HTN 3. HLD 4. poorly differentiated carcinoma on biopsy of 11cm left lobe of the liver mass 5. hypothyroidism 6. elevated LDH 7. leukocytosis 8. UTI 9. cellulitis 10. PE Plan Cr yair to 1.4 yesterday, ? from ntravascualr volume depeltion vs. SHAUNA ( contrast exposure on 09-27) holding Lasix for now (no chest congestion) Awiting todays labs reports Continue supportive care pain control w/o NSAIDS Junior Rico DO
[2019-10-02] MEDS: ALPRAZolam 0.25 MG TABLET PO PRN ×2 (11:00→21:38)
[2019-10-02 13:44] LABS: BASO % 0.4 % (0-2.0); EOS % 0.9 % (0-4.5); HEMATOCRIT 27.2 % (32.4-45.2); HEMOGLOBIN 8.8 GM/dL (10.7-15.3); LYMPH % 8.5 % (8-40); MCH 29.8 pg (25.7-33.7); MCHC 32.5 g/dl (32.0-36.0); MEAN CELL VOLUME 91.6 fl (80-96); MEAN PLT VOLUME 10.6 fl (7.5-11.1); MONO % 7.7 % (3.8-10.2); NEUT % 82.5 % (42.8-82.8); PLATELET COUNT 64 K/MM3 (134-434); RBC 2.96 M/mm3 (3.60-5.2)
[2019-10-02 13:52] LABS: WHITE BLOOD COUNT 32.8 K/mm3 (4.0-10.0)
[2019-10-02 14:25] LABS: ALBUMIN 2.3 g/dl (3.4-5.0); BILIRUBIN,TOTAL 1.2 mg/dL (0.2-1); CALCIUM 8.2 mg/dL (8.5-10.1); CREATININE 1.5 mg/dL (0.55-1.3); POTASSIUM 3.8 mmol/L (3.5-5.1); TOT PROT 4.8 g/dl (6.4-8.2)
[2019-10-02 14:54] LABS: ANISOCYTOSIS 2+; MACROCYTOSIS 0; PLATELET ESTIMATE DECREASED
[2019-10-02] MEDS ORDERED: SODIUM CHLORIDE 250 ML IV ONE (15:00)
[2019-10-02] MEDS ORDERED: SODIUM CHLORIDE 1,000 ML IV SCH (16:00)
--- NOTE | 2019-10-02 18:12 | PN ---
Progress Note (short form) - Note Progress Note: Patient seen and examined c/o generalized fatigue, uncomfortable but denying pain, feels bloated Last Vital Signs Temp Pulse Resp BP Pulse Ox 97.7 F 80 19 98/62 98 10/02/19 16:45 10/02/19 16:45 10/02/19 16:45 10/02/19 16:45 10/01/19 21:00 Cor: RSR, No murmurs, No gallops Lungs: Clear to P&A Abd: Soft, Normal bowel sounds, No organomegaly Ext:No significant edema 10/02/19 11:58 10/02/19 11:58 Current Medications Alprazolam (Xanax -) 0.5 mg PO Q12H PRN PRN Reason: ANXIETY Last Admin: 10/02/19 11:00 Dose: 0.5 mg Enoxaparin Sodium (Lovenox -) 120 mg SQ BID [facility] Last Admin: 10/02/19 09:52 Dose: 120 mg IV Flush (Deric-Cath Flush) 10 ml IVPUSH PRN PRN PRN Reason: protocol, maintain patency Sodium Chloride (Normal Saline -) 1,000 mls @ 60 mls/hr IV Q8H [facility] Stop: 10/02/19 23:59 Levothyroxine Sodium (Synthroid -) 50 mcg PO 0700 [facility] Last Admin: 10/02/19 06:09 Dose: 50 mcg Loperamide HCl (Imodium -) 2 mg PO Q6H PRN PRN Reason: DIARRHEA Ondansetron HCl (Zofran Injection) 8 mg IVPB Q8H PRN PRN Reason: NAUSEA Oxycodone HCl (Roxicodone -) 5 mg PO Q8H PRN PRN Reason: PAIN LEVEL 6-10 Last Admin: 10/02/19 09:49 Dose: 5 mg Pantoprazole Sodium (Protonix -) 40 mg PO DAILY [facility] Last Admin: 10/02/19 09:48 Dose: 40 mg Potassium Chloride (K-Dur -) 20 meq PO DAILY [facility] Last Admin: 10/02/19 09:48 Dose: 20 meq Propranolol HCl (Inderal La -) 60 mg PO DAILY [facility] Last Admin: 10/02/19 09:48 Dose: 60 mg A/P 69 y/o patient with cholangiocarcinoma, locally advanced , now with progressive disease on gemzar/oxaliplatin C2D19 Fluid overload--> Given intravascular depletion, started on NS 60 cc/hr worsening performance status Decubitus ulcer anxiety DVT/PE--on lovenox Sleep problems. Will add melatonin thrombocytopenia improving
[2019-10-02 20:30] LABS: ALBUMIN 2.2 g/dl (3.4-5.0); BLOOD UREA NITROGEN 55.5 mg/dL (7-18); CREATININE 1.6 mg/dL (0.55-1.3); POTASSIUM 4.1 mmol/L (3.5-5.1); TOT PROT 4.7 g/dl (6.4-8.2)
[2019-10-02] MEDS ORDERED: MELATONIN 1 MG TABLET PO PRN (22:00)
[2019-10-03] MEDS: LEVOTHYROXINE NA 50 MCG TABLET (FP) PO SCH (06:03)
[2019-10-03 07:35] LABS: BASO % 0.6 % (0-2.0); EOS % 0.8 % (0-4.5); HEMATOCRIT 25.1 % (32.4-45.2); HEMOGLOBIN 8.5 GM/dL (10.7-15.3); MCH 30.8 pg (25.7-33.7); MEAN CELL VOLUME 90.6 fl (80-96); MEAN PLT VOLUME 10.4 fl (7.5-11.1); MONO % 4.7 % (3.8-10.2); NEUT % 84.9 % (42.8-82.8); PLATELET COUNT 70 K/MM3 (134-434); RBC 2.77 M/mm3 (3.60-5.2); RDW 16.1 % (11.6-15.6); WHITE BLOOD COUNT 25.3 K/mm3 (4.0-10.0)
[2019-10-03 07:57] LABS: ALBUMIN 2.2 g/dl (3.4-5.0); BILIRUBIN,TOTAL 1.5 mg/dL (0.2-1); BLOOD UREA NITROGEN 58.7 mg/dL (7-18); CALCIUM 8.2 mg/dL (8.5-10.1); CREATININE 1.7 mg/dL (0.55-1.3); POTASSIUM 4.1 mmol/L (3.5-5.1); TOT PROT 4.8 g/dl (6.4-8.2)
[2019-10-03 10:01] LABS: ANISOCYTOSIS 1+; PLATELET ESTIMATE DECREASED
[2019-10-03] MEDS: ENOXAPARIN NA (PORCINE) 120 MG/0.8 ML DISP.SYRIN SQ SCH (10:04)
[2019-10-03] MEDS: PANTOPRAZOLE 40 MG TABLET PO SCH (10:04)
[2019-10-03] MEDS: POTASSIUM CHLORIDE TABS 20 MEQ TABLET.ER (FP) PO SCH (10:08)
--- NOTE | 2019-10-03 10:21 | PN ---
Progress Note (short form) - Note Progress Note: Renal follow up for fluid overload Coverage for Dr. Garza Seen and examined at the bedside still feels uncomfortable no shortness of breath no abdominal pain no N/V oral intake is poor BP was low last night requiring IVF legs remain swollen Vital Signs Temperature 97.5 F L 10/03/19 06:12 Pulse Rate 78 10/03/19 06:12 Respiratory Rate 18 10/03/19 06:12 Blood Pressure 103/56 L 10/03/19 06:12 O2 Sat by Pulse Oximetry (%) 96 10/02/19 21:00 Intake & Output 09/30/19 10/01/19 10/02/19 10/03/19 23:59 23:59 23:59 23:59 Intake Total 250 300 980 0 Output Total 100 Balance 150 300 980 0 Weight 120.656 kg NAD CTA soft, NT/ND Abd ++ edema in LE CBC, BMP 10/03/19 06:45 10/03/19 06:45 Current Medications Alprazolam (Xanax -) 0.5 mg PO Q12H PRN PRN Reason: ANXIETY Last Admin: 10/02/19 21:38 Dose: 0.5 mg Enoxaparin Sodium (Lovenox -) 120 mg SQ BID [facility] Last Admin: 10/03/19 10:04 Dose: 120 mg IV Flush (Deric-Cath Flush) 10 ml IVPUSH PRN PRN PRN Reason: protocol, maintain patency Levothyroxine Sodium (Synthroid -) 50 mcg PO 0700 [facility] Last Admin: 10/03/19 06:03 Dose: 50 mcg Loperamide HCl (Imodium -) 2 mg PO Q6H PRN PRN Reason: DIARRHEA Melatonin (Melatonin) 3 mg PO HS PRN PRN Reason: INSOMNIA Last Admin: 10/02/19 21:07 Dose: 3 mg Ondansetron HCl (Zofran Injection) 8 mg IVPB Q8H PRN PRN Reason: NAUSEA Oxycodone HCl (Roxicodone -) 5 mg PO Q8H PRN PRN Reason: PAIN LEVEL 6-10 Last Admin: 10/02/19 21:06 Dose: 5 mg Pantoprazole Sodium (Protonix -) 40 mg PO DAILY [facility] Last Admin: 10/03/19 10:04 Dose: Not Given Potassium Chloride (K-Dur -) 20 meq PO DAILY [facility] Last Admin: 10/03/19 10:08 Dose: Not Given Propranolol HCl (Inderal La -) 60 mg PO DAILY [facility] Last Admin: 10/03/19 10:03 Dose: 60 mg Impression 1. fluid overload 2. HTN 3. HLD 4. poorly differentiated carcinoma on biopsy of 11cm left lobe of the liver mass 5. hypothyroidism 6. elevated LDH 7. leukocytosis 8. UTI 9. cellulitis 10. PE Plan Cr still elevated but appears to be plateaued Contrast exposure and intravascular volume depletion likely factors affecting kidney function would hold off additional IV diuretics Can consider addition of Midodrine as needed if BP trends lower Case discussed with Dr. Josette Rico DO
--- NOTE | 2019-10-03 11:50 | PN ---
Progress Note, Physician Chief Complaint: LETHARGIC TODAY AFEBRILE WBC IMPROVED LE SWELLING AND ERYTHEMA IMPROVED WHEN LEGS ELEVATED - Current Medication List Current Medications: Active Medications Alprazolam (Xanax -) 0.5 mg PO Q12H PRN PRN Reason: ANXIETY Last Admin: 10/02/19 21:38 Dose: 0.5 mg Enoxaparin Sodium (Lovenox -) 120 mg SQ BID [facility] Last Admin: 10/03/19 10:04 Dose: 120 mg IV Flush (Deric-Cath Flush) 10 ml IVPUSH PRN PRN PRN Reason: protocol, maintain patency Levothyroxine Sodium (Synthroid -) 50 mcg PO 0700 [facility] Last Admin: 10/03/19 06:03 Dose: 50 mcg Loperamide HCl (Imodium -) 2 mg PO Q6H PRN PRN Reason: DIARRHEA Melatonin (Melatonin) 3 mg PO HS PRN PRN Reason: INSOMNIA Last Admin: 10/02/19 21:07 Dose: 3 mg Ondansetron HCl (Zofran Injection) 8 mg IVPB Q8H PRN PRN Reason: NAUSEA Oxycodone HCl (Roxicodone -) 5 mg PO Q8H PRN PRN Reason: PAIN LEVEL 6-10 Last Admin: 10/02/19 21:06 Dose: 5 mg Pantoprazole Sodium (Protonix -) 40 mg PO DAILY [facility] Last Admin: 10/03/19 10:04 Dose: Not Given Potassium Chloride (K-Dur -) 20 meq PO DAILY [facility] Last Admin: 10/03/19 10:08 Dose: Not Given Propranolol HCl (Inderal La -) 60 mg PO DAILY [facility] Last Admin: 10/03/19 10:03 Dose: 60 mg - Objective Vital Signs: Vital Signs Temperature 97.5 F L 10/03/19 06:12 Pulse Rate 78 10/03/19 06:12 Respiratory Rate 18 10/03/19 09:00 Blood Pressure 103/56 L 10/03/19 06:12 O2 Sat by Pulse Oximetry (%) 96 10/03/19 09:00 Constitutional: Yes: No Distress Eyes: Yes: Conjunctiva Clear Cardiovascular: Yes: Regular Rate and Rhythm, S1, S2 Respiratory: Yes: Diminished Extremities: Yes: Other (DECREASED LE SELLING/ ERYTHEMA) Labs: CBC, BMP 10/03/19 06:45 10/03/19 06:45 INR, PTT INR 1.23 (0.83-1.09) H 10/01/19 06:10 Fibrinogen Cancelled 10/01/19 06:10 Assessment/Plan LE DVT ? CELLULITIS LEUKOCYTOSIS LIKELY STEROID-INDUCED METASTATIC CA OBSERVE OFF ANTIBIOTICS DISCUSSED WITH FAMILY AT BEDSIDE
[2019-10-03] MEDS ORDERED: POLYETHYLENE GLYCOL 3350 119 GM BTL PO SCH (15:30)
[2019-10-03] MEDS: ALPRAZolam 0.25 MG TABLET PO PRN (18:28)
--- NOTE | 2019-10-03 19:09 | PN ---
Progress Note (short form) - Note Progress Note: Patient seen and examined Mentioned did not sleep well, daughter said found her confused in AM Last Vital Signs Temp Pulse Resp BP Pulse Ox 97.8 F 76 19 91/53 L 96 10/03/19 17:25 10/03/19 17:25 10/03/19 17:25 10/03/19 17:25 10/03/19 09:00 Cor: RSR, No murmurs, No gallops Lungs: Clear to P&A Abd: Soft, Normal bowel sounds, No organomegaly Ext:No significant edema 10/03/19 06:45 10/03/19 06:45 Current Medications Alprazolam (Xanax -) 0.25 mg PO Q12H PRN PRN Reason: ANXIETY Last Admin: 10/03/19 18:28 Dose: 0.25 mg Enoxaparin Sodium (Lovenox -) 120 mg SQ BID [facility] Last Admin: 10/03/19 10:04 Dose: 120 mg IV Flush (Deric-Cath Flush) 10 ml IVPUSH PRN PRN PRN Reason: protocol, maintain patency Levothyroxine Sodium (Synthroid -) 50 mcg PO 0700 [facility] Last Admin: 10/03/19 06:03 Dose: 50 mcg Loperamide HCl (Imodium -) 2 mg PO Q6H PRN PRN Reason: DIARRHEA Melatonin (Melatonin) 3 mg PO HS PRN PRN Reason: INSOMNIA Last Admin: 10/02/19 21:07 Dose: 3 mg Ondansetron HCl (Zofran Injection) 8 mg IVPB Q8H PRN PRN Reason: NAUSEA Oxycodone HCl (Roxicodone -) 5 mg PO Q8H PRN PRN Reason: PAIN LEVEL 6-10 Last Admin: 10/02/19 21:06 Dose: 5 mg Pantoprazole Sodium (Protonix -) 40 mg PO DAILY [facility] Last Admin: 10/03/19 10:04 Dose: Not Given Polyethylene Glycol (Miralax (For Daily Use) -) 17 gm PO DAILY [facility] Last Admin: 10/03/19 15:59 Dose: Not Given Potassium Chloride (K-Dur -) 20 meq PO DAILY [facility] Last Admin: 10/03/19 10:08 Dose: Not Given Propranolol HCl (Inderal La -) 60 mg PO DAILY [facility] Last Admin: 10/03/19 10:03 Dose: 60 mg A/P 69 y/o patient with cholangiocarcinoma, locally advanced , now with progressive disease on gemzar/oxaliplatin C2D20 Fluid overload--> Given intravascular depletion, started on NS 60 cc/hr worsening performance status Decubitus ulcer anxiety DVT/PE--on lovenox Sleep problems. Will add melatonin, unclear if helped or not. Pt mentioning did not sleep well but daughter mentioned she was sleeping this AM when she came in thrombocytopenia improving up to 70K [facility] if additional [facility] available.
[2019-10-03] MEDS: oxyCODONE HCL 5 MG TABLET PO PRN (23:08)
[2019-10-04] MEDS: ALPRAZolam 0.25 MG TABLET PO PRN (02:46)
[2019-10-04] MEDS: oxyCODONE HCL 5 MG TABLET PO PRN (02:46)
[2019-10-04] MEDS ORDERED: oxyCODONE HCL 5 MG TABLET PO PRN (03:57)
[2019-10-04] MEDS ORDERED: ALPRAZolam 0.25 MG TABLET PO ONE (04:00)
[2019-10-04] MEDS: LEVOTHYROXINE NA 50 MCG TABLET (FP) PO SCH (06:16)
[2019-10-04 07:04] LABS: BASO % 0.5 % (0-2.0); EOS % 0.9 % (0-4.5); LYMPH % 10.1 % (8-40); MCH 30.7 pg (25.7-33.7); MCHC 33.4 g/dl (32.0-36.0); MEAN PLT VOLUME 10.3 fl (7.5-11.1); MONO % 7.2 % (3.8-10.2); NEUT % 81.3 % (42.8-82.8); PLATELET COUNT 80 K/MM3 (134-434); RBC 3.26 M/mm3 (3.60-5.2); RDW 15.9 % (11.6-15.6); WHITE BLOOD COUNT 21.8 K/mm3 (4.0-10.0)
[2019-10-04 07:33] LABS: ALBUMIN 2.4 g/dl (3.4-5.0); BILIRUBIN,TOTAL 1.9 mg/dL (0.2-1); CALCIUM 8.2 mg/dL (8.5-10.1); CREATININE 1.7 mg/dL (0.55-1.3); MAGNESIUM 2.2 mg/dL (1.8-2.4); PHOSPHOROUS 3.8 mg/dL (2.5-4.9); POTASSIUM 4.3 mmol/L (3.5-5.1)
[2019-10-04] MEDS ORDERED: ENOXAPARIN NA (PORCINE) 120 MG/0.8 ML DISP.SYRIN SQ ONE (08:00)
[2019-10-04 08:24] VITALS: BP 108/57; PULSE 74; TEMP 97.4
[2019-10-04 09:24] LABS: ANISOCYTOSIS 2+; MACROCYTOSIS 1+; PLATELET ESTIMATE DECREASED
== END 2019-10-04 08:33 | disposition home or self-care (01) | DRG 640 ==
LOC: J7W 13:45
PROVIDERS: ADMIT Internal Medicine Hematology & Oncology; ATTEND Internal Medicine Hematology & Oncology
DX: E87.70 Fluid overload, unspecified (principal); I26.99 Other pulmonary embolism without acute cor pulmonale; L03.116 Cellulitis of left lower limb; L03.115 Cellulitis of right lower limb; C22.1 Intrahepatic bile duct carcinoma; N39.0 Urinary tract infection, site not specified; I82.409 Acute embolism and thrombosis of unspecified deep veins of unspecified lower extremity; I10 Essential (primary) hypertension; E78.5 Hyperlipidemia, unspecified; E03.9 Hypothyroidism, unspecified; K80.20 Calculus of gallbladder without cholecystitis without obstruction; D72.829 Elevated white blood cell count, unspecified; L53.9 Erythematous condition, unspecified; R60.0 Localized edema; F41.9 Anxiety disorder, unspecified; D69.6 Thrombocytopenia, unspecified; L89.322 Pressure ulcer of left buttock, stage 2
CPT/HCPCS: 36415; 36430; 36511; 80053; 83735; 84100; 85025; 85610; 85730; 86850; 86900; 86901; 86922; 87040; J7030; P9038; P9058

== ENCOUNTER 2019-10-04 12:06 | Inpatient (IN) | payer OTHER ==
--- NOTE | 2019-10-04 12:34 | PDOC ---
History of Present Illness - General Chief Complaint: Edema Stated Complaint: PAIN and eugenio leg swelling Time Seen by Provider: 10/04/19 12:25 History Source: Patient Exam Limitations: No Limitations - History of Present Illness Initial Comments: 10/04/19 12:39 69y F hx of hypothryoidism, diverticuliits, ibs, htn, dvt/pe, cholangeocarcenoma currently undergoing chemo. She was admitted earlier today she had left for an appointment at [facility] but was uanble to make it and came back for evaluation/chemo. Patient states she has been having lower extremity edema and feeling extreme Sanju fatigued, with some abdominal discomfort however this is unchanged from her baseline. The patient was just discharged this morning. Dr. Flores would like the patient be admitted to her service for further evaluation. ROS: Constitutional - no reported Fever, Chills, HEENT: no reported vision changes, sore throat Respiratory: no reported cough, sob, hemoptysis Cardiac: no reported chest pain, palpitations, light headedness, leg swelling Abd/GI: +abd distension no reported nausea, vomiting, blood per rectum, melena, diarrhea : no reported dysuria, frequency, discharge Musculskelatal - +leg swelling, no reported back pain, joint swelling skin - no reported bruising, erythema, rash neurological: no reported headache, numbness, focal weakness, tingling, ataxia, hematologic: no reported easy bruising, easy bleeding Physical Exam: GENERAL: The patient is awake, alert,, Nontoxic - in no acute distress. HEAD: Normocephalic, atraumatic. EYES: extraocular movements intact, jaundiced sclera ENT: Normal voice, Moist mucous membranes. NECK: Normal range of motion, supple LUNGS: deminished breath sounds in R base, no acute distress HEART: Regular rate and rhythm, normal S1 and S2 without murmur, rub or gallop. ABDOMEN: Soft, distended abdomen, no focal tenderness EXTREMITIES: Normal range of motion, b/l LE edema with mild erythema without significant warmth. NEUROLOGICAL: No facial assymetry, Normal speech, movin all 4 ext spontaneously and symmetrically PSYCH: Normal mood, normal affect. SKIN: Warm, Dry, normal turgor, Patient representing after leaving this morning for continuation of management of her cholangiocarcinoma. Case was discussed with Dr. Hdez requested admission and direct admission request that we defer work-up in the ED as patient is currently undergoing active management as recently as this morning. Past History - Past Medical History Allergies/Adverse Reactions: Allergies Allergy/AdvReac Type Severity Reaction Status Date / Time No Known Drug Allergies Allergy Verified 10/04/19 12:28 Home Medications: Ambulatory Orders Levothyroxine [Synthroid -] 50 mcg PO DAILY 03/04/19 propRANOLol HCL [Inderal LA -] 60 mg PO DAILY 03/04/19 Potassium Chloride [K-Dur -] 20 meq PO DAILY 09/13/19 Alprazolam [Xanax] 0.5 mg PO Q12H PRN tablet MDD 2 09/21/19 Cephalexin Monohydrate [Keflex -] 500 mg PO TID 10 Days #30 capsule 09/21/19 Furosemide [Lasix -] 40 mg PO DAILY #30 tablet 09/21/19 Loperamide HCl [Imodium -] 2 mg PO Q6H PRN 30 Days capsule MDD 4 09/21/19 Pantoprazole Sodium [Protonix -] 40 mg PO DAILY #30 tablet.ec 09/21/19 oxyCODONE HCL [Roxicodone -] 5 mg PO Q6H PRN tablet MDD 4 09/21/19 Anemia: No Asthma: No Cancer: Yes (Liver) Cardiac Disorders: No CVA: No COPD: No CHF: No Dementia: No Diabetes: No GI Disorders: Yes (diverticulitis) Disorders: No HTN: Yes Hypercholesterolemia: Yes Liver Disease: No Seizures: No Thyroid Disease: Yes - Surgical History Abdominal Surgery: Yes Appendectomy: Yes Cardiac Surgery: No Cholecystectomy: No Lung Surgery: No Neurologic Surgery: No Orthopedic Surgery: No - Psycho Social/Smoking Cessation Hx Smoking History: Never smoked Have you smoked in the past 12 months: No Number of Cigarettes Smoked Daily: 0 If you are a former smoker, when did you quit?: 1994 Cigars Per Day: 0 Information on smoking cessation initiated: No 'Breaking Loose' booklet given: 11/29/13 Hx Alcohol Use: No Drug/Substance Use Hx: No Substance Use Type: None Hx Substance Use Treatment: No *Physical Exam - Vital Signs Last Vital Signs Temp Pulse Resp BP Pulse Ox 97.1 F L 77 18 96/72 98 10/04/19 12:10 10/04/19 12:10 10/04/19 12:10 10/04/19 12:10 10/04/19 12:10 Discharge - Discharge Information Problems reviewed: Yes Clinical Impression/Diagnosis: Cholangiocarcinoma DVT (deep venous thrombosis) Qualifiers: DVT location: lower extremity Affected thrombotic vein of extremity: unspecified vein of extremity Chronicity: chronic Laterality: unspecified laterality Qualified Code(s): I82.509 - 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
--- NOTE | 2019-10-04 13:37 | HP ---
History and Physical History and Physical: Patient seen and examined 69 y/o patient with cholangiocarcinoma for C2 D21 gemzar/oxaliplatin No fever/chills/cough/shortness of breath uncomfortable with fullness sensation in the upper abdomen b/l lower extremity edema, erythema Last Vital Signs Temp Pulse Resp BP Pulse Ox 97.1 F L 77 18 96/72 98 10/04/19 12:10 10/04/19 12:10 10/04/19 12:10 10/04/19 12:10 10/04/19 12:10 Cor: RSR, No murmurs, No gallops Lungs: decreased breath sounds at rt. base Abd: Soft, Normal bowel sounds, No organomegaly Ext:3+ edema/erythema Labs/meds reviewed A/P 69 y/o patient with gallbladder vs intrahepatic cholangiocarcinoma, C2 D21 gem/ ox. Progression of disease Worsening performance status slowly worsening liver function DVT/PE lower extremity edema ?cellulitis palliative care
[2019-10-04] MEDS ORDERED: ALPRAZolam 1 MG TABLET PO PRN (13:41)
[2019-10-04] MEDS ORDERED: ALPRAZolam 0.25 MG TABLET PO PRN (13:47)
[2019-10-04 13:58] VITALS: BMI 41.6
[2019-10-04] MEDS ORDERED: LOPERAMIDE HCL 2 MG CAPSULE PO PRN (14:07)
--- NOTE | 2019-10-04 14:25 | CONSULT ---
Consult Consult Specialty:: Nephrology Reason for Consultation:: CELIA - History of Present Illness Chief Complaint: lower ext edema History of Present Illness: Pt seen and examined at bedside. She returned from her eval at [place]. She complains of edema. She denies shortness of breath. - History Source History Provided By: Patient - Past Medical History Cardio/Vascular: Yes: HTN, Hyperlipdemia Gastrointestinal: Yes: Diverticulitis Hepatobiliary: Yes: Cholelithiasis Renal/: Yes: Renal Inusuff ...: No Endocrine: Yes: Hypothyroidism - Past Surgical History Past Surgical History: Yes: Appendectomy, Breast Biopsy (benign left breast biopsy), Colectomy (laparoscopic sigmoid resection ), Colonoscopy, Laminectomy - Alcohol/Substance Use Hx Alcohol Use: No History of Substance Use: reports: None - Smoking History Smoking history: Former smoker Have you smoked in the past 12 months: No Aproximately how many cigarettes per day: 0 If you are a former smoker, when did you quit?: 1994 - Social History Usual Living Arrangement: Alone ADL: Independent 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 Home Medications - Allergies Allergies/Adverse Reactions: Allergies Allergy/AdvReac Type Severity Reaction Status Date / Time No Known Drug Allergies Allergy Verified 10/04/19 12:28 - Home Medications Home Medications: Ambulatory Orders Levothyroxine [Synthroid -] 50 mcg PO DAILY 03/04/19 propRANOLol HCL [Inderal LA -] 60 mg PO DAILY 03/04/19 Potassium Chloride [K-Dur -] 20 meq PO DAILY 09/13/19 Alprazolam [Xanax] 0.5 mg PO Q12H PRN tablet MDD 2 09/21/19 Cephalexin Monohydrate [Keflex -] 500 mg PO TID 10 Days #30 capsule 09/21/19 Furosemide [Lasix -] 40 mg PO DAILY #30 tablet 09/21/19 Loperamide HCl [Imodium -] 2 mg PO Q6H PRN 30 Days capsule MDD 4 09/21/19 Pantoprazole Sodium [Protonix -] 40 mg PO DAILY #30 tablet.ec 09/21/19 oxyCODONE HCL [Roxicodone -] 5 mg PO Q6H PRN tablet MDD 4 09/21/19 Review of Systems - Review of Systems Constitutional: reports: Malaise Cardiovascular: reports: Edema Respiratory: reports: SOB on Exertion Genitourinary: reports: No Symptoms Endocrine: reports: No Symptoms Hematology/Lymphatic: reports: No Symptoms Psychiatric: reports: No Symptoms Physical Exam Vital Signs: Vital Signs Temperature 97.5 F L 10/04/19 13:53 Pulse Rate 77 10/04/19 13:53 Respiratory Rate 18 10/04/19 13:53 Blood Pressure 126/62 10/04/19 13:53 O2 Sat by Pulse Oximetry (%) 98 10/04/19 12:10 Constitutional: Yes: Calm Eyes: Yes: Conjunctiva Clear HENT: Yes: Atraumatic Neck: Yes: Supple Cardiovascular: Yes: S1, S2 Respiratory: Yes: CTA Bilaterally Gastrointestinal: Yes: Soft Renal/: Yes: WNL Edema: Yes Edema: LLE: 3+, RLE: 3+ Neurological: Yes: Oriented Psychiatric: Yes: Oriented Problem List - Problems (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 - INTRAHEPATIC BILE DUCT CARCINOMA (2) DVT (deep venous thrombosis) Code(s): I82.409 - ACUTE EMBOLISM AND THOMBOS UNSP DEEP VN UNSP LOWER EXTREMITY Qualifiers: DVT location: lower extremity Affected thrombotic vein of extremity: unspecified vein of extremity Chronicity: chronic Laterality: unspecified laterality Qualified Code(s): I82.509 - Chronic embolism and thrombosis of unspecified deep veins of unspecified lower extremity (3) CELIA (acute kidney injury) Code(s): N17.9 - ACUTE KIDNEY FAILURE, UNSPECIFIED Assessment/Plan Current Medications Generic Name Dose Route Start Last Admin Trade Name Freq PRN Reason Stop Dose Admin Alprazolam 0.25 mg 10/04/19 13:47 10/04/19 14:05 Xanax - PO 0.25 mg Q8H PRN Administration PAIN Enoxaparin Sodium 120 mg 10/05/19 10:00 Lovenox - SQ DAILY GABRIEL Levothyroxine Sodium 50 mcg 10/05/19 07:00 Synthroid - PO DAILY@0700 GABRIEL Loperamide HCl 2 mg 10/04/19 14:07 Imodium - PO Q6H PRN CONSTIPATION Melatonin 5 mg 10/04/19 14:09 Melatonin PO HS PRN INSOMNIA Oxycodone HCl 5 mg 10/04/19 14:09 Roxicodone - PO Q8H PRN PAIN LEVEL 7 - 10 Pantoprazole Sodium 40 mg 10/04/19 14:15 Protonix Iv IVPB DAILY GABRIEL Propranolol HCl 60 mg 10/05/19 10:00 Inderal La - PO DAILY GABRIEL Impression 1. fluid overload 2. HTN 3. HLD 4. poorly differentiated carcinoma on biopsy of 11cm left lobe of the liver mass 5. hypothyroidism 6. elevated LDH 7. leukocytosis 8. UTI 9. cellulitis 10. PE 11. CELIA Plan - lasix on hold - repeat labs in am - encourage PO intake - discussed with onc - check ua, lytes and nurse examiner
[2019-10-04] MEDS: PANTOPRAZOLE SODIUM 40 MG VIAL IVPB SCH (15:16)
[2019-10-04 22:00] LABS: URINE APPEARANCE CLOUDY; URINE BILIRUBIN NEGATIVE (NEGATIVE); URINE COLOR DK YELLOW; URINE GLUCOSE (UA) NEGATIVE (NEGATIVE); URINE KETONE NEGATIVE (NEGATIVE); URINE LEUK ESTERASE NEGATIVE (NEGATIVE); URINE NITRITE NEGATIVE (NEGATIVE); URINE PROTEIN TRACE (NEGATIVE); URINE UROBILINOGEN 0.2 mg/dL (0.2-1.0)
[2019-10-04] MEDS: MELATONIN 5 MG TABLETS PO PRN (22:11)
[2019-10-05] MEDS: oxyCODONE HCL 5 MG TABLET PO PRN (01:18)
[2019-10-05] MEDS: LEVOTHYROXINE NA 50 MCG TABLET (FP) PO SCH (06:35)
[2019-10-05] MEDS ORDERED: PT OWN MED DRAWER 7, Y5N ONE (07:17)
[2019-10-05] MEDS: ALPRAZolam 0.25 MG TABLET PO PRN ×2 (07:21→21:45)
[2019-10-05 07:26] LABS: BASO % 1.2 % (0-2.0); EOS % 1.1 % (0-4.5); HEMATOCRIT 28.8 % (32.4-45.2); HEMOGLOBIN 9.7 GM/dL (10.7-15.3); MCHC 33.6 g/dl (32.0-36.0); MEAN CELL VOLUME 92.3 fl (80-96); MEAN PLT VOLUME 10.1 fl (7.5-11.1); MONO % 9.2 % (3.8-10.2); NEUT % 76.5 % (42.8-82.8); PLATELET COUNT 90 K/MM3 (134-434); RBC 3.11 M/mm3 (3.60-5.2); RDW 16.7 % (11.6-15.6); WHITE BLOOD COUNT 20.7 K/mm3 (4.0-10.0)
[2019-10-05 07:34] LABS: INR 1.17 (0.83-1.09); PROTHROMBIN TIME (PATIENT) 13.8 SEC (9.7-13.0)
[2019-10-05 07:37] LABS: ACTIVATED PTT 32.7 SECONDS (25.2-36.5)
[2019-10-05 07:50] LABS: ALBUMIN 2.2 g/dl (3.4-5.0); BILIRUBIN,TOTAL 2.1 mg/dL (0.2-1); BLOOD UREA NITROGEN 65.9 mg/dL (7-18); CALCIUM 8.7 mg/dL (8.5-10.1); CREATININE 1.8 mg/dL (0.55-1.3); POTASSIUM 4.6 mmol/L (3.5-5.1)
[2019-10-05] MEDS: PANTOPRAZOLE SODIUM 40 MG VIAL IVPB SCH (09:24)
[2019-10-05] MEDS: BACITRACIN 15 GM TUBE TOPICAL OINTMENT TP SCH ×2 (09:24→21:45)
[2019-10-05] MEDS: ENOXAPARIN NA (PORCINE) 120 MG/0.8 ML DISP.SYRIN SQ SCH (09:25)
[2019-10-05 11:02] LABS: ANISOCYTOSIS 2+; MACROCYTOSIS 0; PLATELET ESTIMATE DECREASED
--- NOTE | 2019-10-05 15:18 | PN ---
Progress Note, Physician History of Present Illness: Pt seen and examined at bedside. She appears fatigued. - Current Medication List Current Medications: Active Medications Alprazolam (Xanax -) 0.25 mg PO Q12H PRN PRN Reason: PAIN Last Admin: 10/05/19 07:21 Dose: 0.25 mg Bacitracin (Bacitracin -) 1 applic TP BID [facility] Last Admin: 10/05/19 09:24 Dose: 1 applic Enoxaparin Sodium (Lovenox -) 120 mg SQ DAILY [facility] Last Admin: 10/05/19 09:25 Dose: 120 mg Levothyroxine Sodium (Synthroid -) 50 mcg PO DAILY@0700 [facility] Last Admin: 10/05/19 06:35 Dose: 50 mcg Loperamide HCl (Imodium -) 2 mg PO Q6H PRN PRN Reason: CONSTIPATION Melatonin (Melatonin) 5 mg PO HS PRN PRN Reason: INSOMNIA Last Admin: 10/04/19 22:11 Dose: 5 mg Oxycodone HCl (Roxicodone -) 5 mg PO Q8H PRN PRN Reason: PAIN LEVEL 7 - 10 Last Admin: 10/05/19 01:18 Dose: 5 mg Pantoprazole Sodium (Protonix Iv) 40 mg IVPB DAILY [facility] Last Admin: 10/05/19 09:24 Dose: 40 mg Propranolol HCl (Inderal La -) 60 mg PO DAILY [facility] Last Admin: 10/05/19 09:24 Dose: 60 mg - Objective Vital Signs: Vital Signs Temperature 97.5 F L 10/05/19 14:15 Pulse Rate 87 10/05/19 14:15 Respiratory Rate 20 10/05/19 14:15 Blood Pressure 97/61 10/05/19 14:15 O2 Sat by Pulse Oximetry (%) 98 10/05/19 09:00 Constitutional: Yes: Calm Eyes: Yes: Conjunctiva Clear HENT: Yes: Atraumatic Cardiovascular: Yes: S1, S2 Respiratory: Yes: CTA Bilaterally Gastrointestinal: Yes: Soft Musculoskeletal: Yes: WNL Extremities: Yes: WNL Edema: Yes Edema: LLE: 2+, RLE: 2+ Neurological: Yes: Oriented Psychiatric: Yes: Oriented Labs: CBC, BMP 10/05/19 06:00 10/05/19 06:00 INR, PTT INR 1.17 (0.83-1.09) H 10/05/19 06:00 Problem List - Problems (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 - INTRAHEPATIC BILE DUCT CARCINOMA (2) DVT (deep venous thrombosis) Code(s): I82.409 - ACUTE EMBOLISM AND THOMBOS UNSP DEEP VN UNSP LOWER EXTREMITY Qualifiers: DVT location: lower extremity Affected thrombotic vein of extremity: unspecified vein of extremity Chronicity: chronic Laterality: unspecified laterality Qualified Code(s): I82.509 - Chronic embolism and thrombosis of unspecified deep veins of unspecified lower extremity (3) CELIA (acute kidney injury) Code(s): N17.9 - ACUTE KIDNEY FAILURE, UNSPECIFIED Assessment/Plan Current Medications Generic Name Dose Route Start Last Admin Trade Name Freq PRN Reason Stop Dose Admin Alprazolam 0.25 mg 10/04/19 17:28 10/05/19 07:21 Xanax - PO 0.25 mg Q12H PRN Administration PAIN Bacitracin 1 applic 10/05/19 10:00 10/05/19 09:24 Bacitracin - TP 1 applic BID GABRIEL Administration Enoxaparin Sodium 120 mg 10/05/19 10:00 10/05/19 09:25 Lovenox - SQ 120 mg DAILY GABRIEL Administration Levothyroxine Sodium 50 mcg 10/05/19 07:00 10/05/19 06:35 Synthroid - PO 50 mcg DAILY@0700 GABRIEL Administration Loperamide HCl 2 mg 10/04/19 14:07 Imodium - PO Q6H PRN CONSTIPATION Melatonin 5 mg 10/04/19 14:09 10/04/19 22:11 Melatonin PO 5 mg HS PRN Administration INSOMNIA Oxycodone HCl 5 mg 10/04/19 14:09 10/05/19 01:18 Roxicodone - PO 5 mg Q8H PRN Administration PAIN LEVEL 7 - 10 Pantoprazole Sodium 40 mg 10/04/19 14:15 10/05/19 09:24 Protonix Iv IVPB 40 mg DAILY GABRIEL Administration Propranolol HCl 60 mg 10/05/19 10:00 10/05/19 09:24 Inderal La - PO 60 mg DAILY GABRIEL Administration Impression 1. fluid overload 2. HTN 3. HLD 4. poorly differentiated carcinoma on biopsy of 11cm left lobe of the liver mass 5. hypothyroidism 6. elevated LDH 7. leukocytosis 8. UTI 9. cellulitis 10. PE 11. CELIA Plan - hold off diuretics - monitor renal function - pt with poor po intake - encourage PO intake
--- NOTE | 2019-10-05 20:49 | PN ---
Progress Note (short form) - Note Progress Note: Patient seen and examined Uncomfortable , Last Vital Signs Temp Pulse Resp BP Pulse Ox 98.3 F 77 20 102/56 L 98 10/05/19 18:00 10/05/19 18:00 10/05/19 18:00 10/05/19 18:00 10/05/19 09:00 Prior notes reviewed CBC, BMP 10/05/19 06:00 10/05/19 06:00 Current Medications Generic Name Dose Route Start Last Admin Trade Name Freq PRN Reason Stop Dose Admin Alprazolam 0.25 mg 10/04/19 17:28 10/05/19 07:21 Xanax - PO 0.25 mg Q12H PRN Administration PAIN Bacitracin 1 applic 10/05/19 10:00 10/05/19 09:24 Bacitracin - TP 1 applic BID GABRIEL Administration Enoxaparin Sodium 120 mg 10/05/19 10:00 10/05/19 09:25 Lovenox - SQ 120 mg DAILY GABRIEL Administration Levothyroxine Sodium 50 mcg 10/05/19 07:00 10/05/19 06:35 Synthroid - PO 50 mcg DAILY@0700 GABRIEL Administration Loperamide HCl 2 mg 10/04/19 14:07 Imodium - PO Q6H PRN CONSTIPATION Melatonin 5 mg 10/04/19 14:09 10/04/19 22:11 Melatonin PO 5 mg HS PRN Administration INSOMNIA Oxycodone HCl 5 mg 10/04/19 14:09 10/05/19 01:18 Roxicodone - PO 5 mg Q8H PRN Administration PAIN LEVEL 7 - 10 Pantoprazole Sodium 40 mg 10/04/19 14:15 10/05/19 09:24 Protonix Iv IVPB 40 mg DAILY GABRIEL Administration Propranolol HCl 60 mg 10/05/19 10:00 10/05/19 09:24 Inderal La - PO 60 mg DAILY GABRIEL Administration Metastatic cholangioca Liver mets Ascites Fluid opverload ? LE cellulitis Awaiting [facility] ? of IO via compassionate approval
[2019-10-05] MEDS: MELATONIN 5 MG TABLETS PO PRN (21:48)
[2019-10-05] MEDS ORDERED: SENNOSIDES/DOCUSATE COMBO (SENNA PLUS) TABLET (UD) PO PRN (22:00)
[2019-10-06] MEDS: oxyCODONE HCL 5 MG TABLET PO PRN (02:26)
[2019-10-06] MEDS: LEVOTHYROXINE NA 50 MCG TABLET (FP) PO SCH (06:26)
[2019-10-06 07:36] LABS: BASO % 0.5 % (0-2.0); EOS % 0.9 % (0-4.5); HEMATOCRIT 28.5 % (32.4-45.2); HEMOGLOBIN 9.6 GM/dL (10.7-15.3); LYMPH % 14.8 % (8-40); MCH 31.6 pg (25.7-33.7); MCHC 33.7 g/dl (32.0-36.0); MEAN CELL VOLUME 93.9 fl (80-96); MEAN PLT VOLUME 10.4 fl (7.5-11.1); MONO % 8.8 % (3.8-10.2); PLATELET COUNT 114 K/MM3 (134-434); RBC 3.03 M/mm3 (3.60-5.2); RDW 16.9 % (11.6-15.6)
[2019-10-06 07:54] LABS: ALBUMIN 2.2 g/dl (3.4-5.0); BILIRUBIN,TOTAL 2.6 mg/dL (0.2-1); BLOOD UREA NITROGEN 70.9 mg/dL (7-18); CALCIUM 8.3 mg/dL (8.5-10.1); CREATININE 2.1 mg/dL (0.55-1.3); POTASSIUM 5.1 mmol/L (3.5-5.1); TOT PROT 5.1 g/dl (6.4-8.2)
[2019-10-06 10:02] LABS: ANISOCYTOSIS 2+; MACROCYTOSIS 0; PLATELET ESTIMATE DECREASED
[2019-10-06] MEDS ORDERED: SODIUM CHLORIDE 500 ML IV STA (10:22)
[2019-10-06] MEDS: PANTOPRAZOLE SODIUM 40 MG VIAL IVPB SCH (10:36)
[2019-10-06] MEDS: ENOXAPARIN NA (PORCINE) 120 MG/0.8 ML DISP.SYRIN SQ SCH ×3 (10:36→12:10)
[2019-10-06] MEDS: BACITRACIN 15 GM TUBE TOPICAL OINTMENT TP SCH ×2 (10:37→23:00)
[2019-10-06] MEDS ORDERED: ONDANSETRON 4 MG/2 ML VIAL ONE (10:44)
[2019-10-06] MEDS ORDERED: ONDANSETRON 4 MG/2 ML VIAL IVPB PRN (11:14)
--- NOTE | 2019-10-06 13:32 | PN ---
Progress Note, Physician History of Present Illness: Pt seen and examined at bedside. She still has poor appetite. - Current Medication List Current Medications: Active Medications Alprazolam (Xanax -) 0.25 mg PO Q12H PRN PRN Reason: PAIN Last Admin: 10/05/19 21:45 Dose: 0.25 mg Bacitracin (Bacitracin -) 1 applic TP BID [facility] Last Admin: 10/06/19 10:37 Dose: 1 applic Enoxaparin Sodium (Lovenox -) 120 mg SQ DAILY [facility] Last Admin: 10/06/19 12:10 Dose: 120 mg Sodium Chloride (Normal Saline -) 500 mls @ 75 mls/hr IV ASDIR STA Stop: 10/06/19 17:01 Last Admin: 10/06/19 10:36 Dose: 75 mls/hr Levothyroxine Sodium (Synthroid -) 50 mcg PO DAILY@0700 [facility] Last Admin: 10/06/19 06:26 Dose: 50 mcg Loperamide HCl (Imodium -) 2 mg PO Q6H PRN PRN Reason: CONSTIPATION Melatonin (Melatonin) 5 mg PO HS PRN PRN Reason: INSOMNIA Last Admin: 10/05/19 21:48 Dose: 5 mg Ondansetron HCl (Zofran Injection) 8 mg IVPB Q8H PRN PRN Reason: NAUSEA AND/OR VOMITING Last Admin: 10/06/19 11:17 Dose: 8 mg Oxycodone HCl (Roxicodone -) 5 mg PO Q8H PRN PRN Reason: PAIN LEVEL 7 - 10 Last Admin: 10/06/19 02:26 Dose: 5 mg Pantoprazole Sodium (Protonix Iv) 40 mg IVPB DAILY [facility] Last Admin: 10/06/19 10:36 Dose: 40 mg Pt's Own Med (Etain (Balance Capsules)) 1 each PO Q6H PRN PRN Reason: PAIN Propranolol HCl (Inderal La -) 60 mg PO DAILY [facility] Last Admin: 10/06/19 10:50 Dose: Not Given Senna/Docusate Sodium (Pericolace -) 2 tablet PO HS PRN PRN Reason: CONSTIPATION Last Admin: 10/05/19 21:45 Dose: 2 tablet - Objective Vital Signs: Vital Signs Temperature 97.2 F L 10/06/19 10:00 Pulse Rate 76 10/06/19 10:00 Respiratory Rate 10/06/19 10:00 Blood Pressure 90/55 L 10/06/19 10:00 O2 Sat by Pulse Oximetry (%) 97 10/06/19 09:00 Constitutional: Yes: Calm Eyes: Yes: Conjunctiva Clear HENT: Yes: Atraumatic Neck: Yes: Supple Cardiovascular: Yes: S1, S2 Respiratory: Yes: CTA Bilaterally, On Nasal O2 Gastrointestinal: Yes: Soft Genitourinary: Yes: WNL Musculoskeletal: Yes: WNL Edema: Yes Edema: LLE: 2+, RLE: 2+ Neurological: Yes: Oriented Psychiatric: Yes: Oriented Labs: CBC, BMP 10/06/19 06:30 10/06/19 06:30 INR, PTT INR 1.17 (0.83-1.09) H 10/05/19 06:00 Problem List - Problems (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 - INTRAHEPATIC BILE DUCT CARCINOMA (2) DVT (deep venous thrombosis) Code(s): I82.409 - ACUTE EMBOLISM AND THOMBOS UNSP DEEP VN UNSP LOWER EXTREMITY Qualifiers: DVT location: lower extremity Affected thrombotic vein of extremity: unspecified vein of extremity Chronicity: chronic Laterality: unspecified laterality Qualified Code(s): I82.509 - Chronic embolism and thrombosis of unspecified deep veins of unspecified lower extremity (3) CELIA (acute kidney injury) Code(s): N17.9 - ACUTE KIDNEY FAILURE, UNSPECIFIED Assessment/Plan Current Medications Generic Name Dose Route Start Last Admin Trade Name Freq PRN Reason Stop Dose Admin Alprazolam 0.25 mg 10/04/19 17:28 10/05/19 21:45 Xanax - PO 0.25 mg Q12H PRN Administration PAIN Bacitracin 1 applic 10/05/19 10:00 10/06/19 10:37 Bacitracin - TP 1 applic BID GABRIEL Administration Enoxaparin Sodium 120 mg 10/05/19 10:00 10/06/19 12:10 Lovenox - SQ 120 mg DAILY GABRIEL Administration Sodium Chloride 500 mls @ 75 mls/hr 10/06/19 10:22 10/06/19 10:36 Normal Saline - IV 10/06/19 17:01 75 mls/hr ASDIR STA Administration Levothyroxine Sodium 50 mcg 10/05/19 07:00 10/06/19 06:26 Synthroid - PO 50 mcg DAILY@0700 GABRIEL Administration Loperamide HCl 2 mg 10/04/19 14:07 Imodium - PO Q6H PRN CONSTIPATION Melatonin 5 mg 10/04/19 14:09 10/05/19 21:48 Melatonin PO 5 mg HS PRN Administration INSOMNIA Ondansetron HCl 8 mg 10/06/19 11:14 10/06/19 11:17 Zofran Injection IVPB 8 mg Q8H PRN Administration NAUSEA AND/OR VOMITING Oxycodone HCl 5 mg 10/04/19 14:09 10/06/19 02:26 Roxicodone - PO 5 mg Q8H PRN Administration PAIN LEVEL 7 - 10 Pantoprazole Sodium 40 mg 10/04/19 14:15 10/06/19 10:36 Protonix Iv IVPB 40 mg DAILY GABRIEL Administration Pt's Own Med (Etain 1 each 10/06/19 16:00 Balance Capsules) PO Q6H PRN PAIN Propranolol HCl 60 mg 10/05/19 10:00 10/06/19 10:50 Inderal La - PO Not Given DAILY [facility] Senna/Docusate Sodium 2 tablet 10/05/19 22:00 10/05/19 21:45 Pericolace - PO 2 tablet HS PRN Administration CONSTIPATION Impression 1. fluid overload 2. HTN 3. HLD 4. poorly differentiated carcinoma on biopsy of 11cm left lobe of the liver mass 5. hypothyroidism 6. elevated LDH 7. leukocytosis 8. UTI 9. cellulitis 10. PE 11. CELIA Plan - start saline - monitor support director - urine sodium is low - repeat labs in am - discussed with oncology - encourage PO intake
--- NOTE | 2019-10-06 20:10 | PN ---
Progress Note (short form) - Note Progress Note: Patient seen and examined Family at bedside Somewhat more animated today Begun on THC Ate pastrami and knish for lunch Last Vital Signs Temp Pulse Resp BP Pulse Ox 97.2 F L 79 20 102/52 L 97 10/06/19 10:00 10/06/19 13:35 10/06/19 13:35 10/06/19 13:35 10/06/19 09:00 HEENT: CHARLIE, EOM Intact Oropharynx: No thrush, No mucositis Cor: RSR, No murmurs, No gallops Lungs: Clear anteriorly Abd: soft , non tender Ext:significant edema LE Skin: No rashes, Integument intact Weight reportedly unchanged BUN, Creatinine and bilirubin worsening CBC, BMP 10/06/19 06:30 10/06/19 06:30 Current Medications Generic Name Dose Route Start Last Admin Trade Name Freq PRN Reason Stop Dose Admin Alprazolam 0.25 mg 10/04/19 17:28 10/05/19 21:45 Xanax - PO 0.25 mg Q12H PRN Administration PAIN Bacitracin 1 applic 10/05/19 10:00 10/06/19 10:37 Bacitracin - TP 1 applic BID GABRIEL Administration Enoxaparin Sodium 120 mg 10/05/19 10:00 10/06/19 12:10 Lovenox - SQ 120 mg DAILY GABRIEL Administration Levothyroxine Sodium 50 mcg 10/05/19 07:00 10/06/19 06:26 Synthroid - PO 50 mcg DAILY@0700 GABRIEL Administration Loperamide HCl 2 mg 10/04/19 14:07 Imodium - PO Q6H PRN CONSTIPATION Melatonin 5 mg 10/04/19 14:09 10/05/19 21:48 Melatonin PO 5 mg HS PRN Administration INSOMNIA Patient's Own 1 each 10/06/19 22:00 Medication (Non- PO Formulary) Etain HS PRN Forte 140mg PAIN Ondansetron HCl 8 mg 10/06/19 11:14 10/06/19 11:17 Zofran Injection IVPB 8 mg Q8H PRN Administration NAUSEA AND/OR VOMITING Oxycodone HCl 5 mg 10/04/19 14:09 10/06/19 02:26 Roxicodone - PO 5 mg Q8H PRN Administration PAIN LEVEL 7 - 10 Pantoprazole Sodium 40 mg 10/04/19 14:15 10/06/19 10:36 Protonix Iv IVPB 40 mg DAILY GABRIEL Administration Pt's Own Med (Etain 1 each 10/06/19 16:00 Balance Capsules- PO Medical Marijuana) Q6H PRN PAIN Propranolol HCl 60 mg 10/05/19 10:00 10/06/19 10:50 Inderal La - PO Not Given DAILY GABRIEL Senna/Docusate Sodium 2 tablet 10/05/19 22:00 10/05/19 21:45 Pericolace - PO 2 tablet HS PRN Administration CONSTIPATION Impression: Cholangioca Liver mets Worsening renal failure Fluid overload Awaiting [facility] and ?? of IO.
[2019-10-06] MEDS ORDERED: PT OWN MED DRAWER 7, Y5N ONE (21:36)
[2019-10-06] MEDS ORDERED: [UNRECOGNIZED DRUG - OTHER] PO PRN (21:42)
[2019-10-06] MEDS ORDERED: PT OWN MED (PYXIS) ONE (21:58)
[2019-10-06] MEDS ORDERED: [UNRECOGNIZED DRUG - OTHER] PO PRN (22:00)
[2019-10-07] MEDS: BACITRACIN 15 GM TUBE TOPICAL OINTMENT TP SCH ×3 (03:00→23:04)
[2019-10-07] MEDS: LEVOTHYROXINE NA 50 MCG TABLET (FP) PO SCH (06:53)
[2019-10-07 08:28] LABS: ALBUMIN 2.2 g/dl (3.4-5.0); BILIRUBIN,TOTAL 2.4 mg/dL (0.2-1); BLOOD UREA NITROGEN 74.3 mg/dL (7-18); CALCIUM 8.6 mg/dL (8.5-10.1); CREATININE 2.4 mg/dL (0.55-1.3); POTASSIUM 5.2 mmol/L (3.5-5.1); TOT PROT 5.1 g/dl (6.4-8.2)
[2019-10-07] MEDS: SODIUM CHLORIDE 1,000 ML IV SCH (09:30)
[2019-10-07 10:09] LABS: BASO % 1.1 % (0-2.0); EOS % 0.8 % (0-4.5); HEMATOCRIT 25.9 % (32.4-45.2); HEMOGLOBIN 8.6 GM/dL (10.7-15.3); LYMPH % 14.4 % (8-40); MCH 31.7 pg (25.7-33.7); MCHC 33.3 g/dl (32.0-36.0); MEAN CELL VOLUME 95.4 fl (80-96); MEAN PLT VOLUME 9.7 fl (7.5-11.1); MONO % 9.3 % (3.8-10.2); NEUT % 74.4 % (42.8-82.8); PLATELET COUNT 130 K/MM3 (134-434); RBC 2.71 M/mm3 (3.60-5.2); RDW 17.2 % (11.6-15.6); WHITE BLOOD COUNT 25.2 K/mm3 (4.0-10.0)
[2019-10-07] MEDS: PANTOPRAZOLE SODIUM 40 MG VIAL IVPB SCH (10:28)
[2019-10-07] MEDS: [UNRECOGNIZED DRUG - OTHER] PO PRN (10:29)
[2019-10-07] MEDS: MEDICAL MARIJUANA PO PRN (10:29)
[2019-10-07 10:36] LABS: BILIRUBIN,TOTAL 2.5 mg/dL (0.2-1); BLOOD UREA NITROGEN 75.9 mg/dL (7-18); CALCIUM 8.4 mg/dL (8.5-10.1); CREATININE 2.5 mg/dL (0.55-1.3); POTASSIUM 5.2 mmol/L (3.5-5.1); TOT PROT 4.9 g/dl (6.4-8.2)
[2019-10-07 10:57] LABS: ANISOCYTOSIS 2+; MACROCYTOSIS 2+; PLATELET ESTIMATE DECREASED
[2019-10-07] MEDS: ENOXAPARIN NA (PORCINE) 120 MG/0.8 ML DISP.SYRIN SQ SCH (11:55)
[2019-10-07] MEDS: oxyCODONE HCL 5 MG TABLET PO PRN ×2 (12:41→21:45)
[2019-10-07] MEDS ORDERED: SODIUM ZIRCONIUM CYCLOSILICATE (LOKELMA) 5 GM PACKET PO ONE (15:50)
--- NOTE | 2019-10-07 15:50 | PN ---
Progress Note, Physician History of Present Illness: Pt seen and examined at bedside. She is awake and alert. She denies shortness of breath. She appears fatigued. - Current Medication List Current Medications: Active Medications Alprazolam (Xanax -) 0.25 mg PO Q12H PRN PRN Reason: PAIN Last Admin: 10/05/19 21:45 Dose: 0.25 mg Bacitracin (Bacitracin -) 1 applic TP BID [facility] Last Admin: 10/07/19 11:56 Dose: 1 applic Enoxaparin Sodium (Lovenox -) 120 mg SQ DAILY [facility] Last Admin: 10/07/19 11:55 Dose: 120 mg Sodium Chloride (Normal Saline -) 1,000 mls @ 75 mls/hr IV ASDIR [facility] Last Admin: 10/07/19 09:30 Dose: 75 mls/hr Levothyroxine Sodium (Synthroid -) 50 mcg PO DAILY@0700 [facility] Last Admin: 10/07/19 06:53 Dose: 50 mcg Loperamide HCl (Imodium -) 2 mg PO Q6H PRN PRN Reason: CONSTIPATION Melatonin (Melatonin) 5 mg PO HS PRN PRN Reason: INSOMNIA Last Admin: 10/05/19 21:48 Dose: 5 mg Ondansetron HCl (Zofran Injection) 8 mg IVPB Q8H PRN PRN Reason: NAUSEA AND/OR VOMITING Last Admin: 10/06/19 11:17 Dose: 8 mg Pantoprazole Sodium (Protonix Iv) 40 mg IVPB DAILY [facility] Last Admin: 10/07/19 10:28 Dose: 40 mg Pt's Own Med (Etain Balance Capsules- Medical Marijuana) 1 each PO Q6H PRN PRN Reason: PAIN Last Admin: 10/07/19 10:29 Dose: 1 each Patient's Own Medication (Pyxis) Etain Forte 140mg 1 each PO HS PRN PRN Reason: PAIN Last Admin: 10/06/19 22:29 Dose: 1 each Propranolol HCl (Inderal La -) 60 mg PO DAILY [facility] Last Admin: 10/07/19 10:29 Dose: Not Given Senna/Docusate Sodium (Pericolace -) 2 tablet PO HS PRN PRN Reason: CONSTIPATION Last Admin: 10/05/19 21:45 Dose: 2 tablet - Objective Vital Signs: Vital Signs Temperature 97.9 F 10/07/19 13:41 Pulse Rate 91 H 10/07/19 13:41 Respiratory Rate 20 10/07/19 13:41 Blood Pressure 96/53 L 10/07/19 13:41 O2 Sat by Pulse Oximetry (%) 95 10/07/19 09:00 Constitutional: Yes: Calm Eyes: Yes: Conjunctiva Clear HENT: Yes: Atraumatic Cardiovascular: Yes: S1, S2 Respiratory: Yes: CTA Bilaterally Gastrointestinal: Yes: Normal Bowel Sounds, Soft Genitourinary: Yes: WNL Edema: Yes Edema: LLE: 2+, RLE: 2+ Integumentary: Yes: Erythema, Venous Stasis Changes Neurological: Yes: Oriented Psychiatric: Yes: Oriented Labs: CBC, BMP 10/07/19 09:30 10/07/19 09:30 INR, PTT INR 1.17 (0.83-1.09) H 10/05/19 06:00 Problem List - Problems (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 - INTRAHEPATIC BILE DUCT CARCINOMA (2) DVT (deep venous thrombosis) Code(s): I82.409 - ACUTE EMBOLISM AND THOMBOS UNSP DEEP VN UNSP LOWER EXTREMITY Qualifiers: DVT location: lower extremity Affected thrombotic vein of extremity: unspecified vein of extremity Chronicity: chronic Laterality: unspecified laterality Qualified Code(s): I82.509 - Chronic embolism and thrombosis of unspecified deep veins of unspecified lower extremity (3) CELIA (acute kidney injury) Code(s): N17.9 - ACUTE KIDNEY FAILURE, UNSPECIFIED Assessment/Plan Current Medications Generic Name Dose Route Start Last Admin Trade Name Freq PRN Reason Stop Dose Admin Alprazolam 0.25 mg 10/04/19 17:28 10/05/19 21:45 Xanax - PO 0.25 mg Q12H PRN Administration PAIN Bacitracin 1 applic 10/05/19 10:00 10/07/19 11:56 Bacitracin - TP 1 applic BID GABRIEL Administration Enoxaparin Sodium 120 mg 10/05/19 10:00 10/07/19 11:55 Lovenox - SQ 120 mg DAILY GABRIEL Administration Sodium Chloride 1,000 mls @ 75 mls/hr 10/07/19 08:15 10/07/19 09:30 Normal Saline - IV 75 mls/hr ASDIR GABRIEL Administration Levothyroxine Sodium 50 mcg 10/05/19 07:00 10/07/19 06:53 Synthroid - PO 50 mcg DAILY@0700 GABRIEL Administration Loperamide HCl 2 mg 10/04/19 14:07 Imodium - PO Q6H PRN CONSTIPATION Melatonin 5 mg 10/04/19 14:09 10/05/19 21:48 Melatonin PO 5 mg HS PRN Administration INSOMNIA Ondansetron HCl 8 mg 10/06/19 11:14 10/06/19 11:17 Zofran Injection IVPB 8 mg Q8H PRN Administration NAUSEA AND/OR VOMITING Pantoprazole Sodium 40 mg 10/04/19 14:15 10/07/19 10:28 Protonix Iv IVPB 40 mg DAILY GABRIEL Administration Pt's Own Med (Etain 1 each 10/06/19 16:00 10/07/19 10:29 Balance Capsules- PO 1 each Medical Marijuana) Q6H PRN Administration PAIN Patient's Own 1 each 10/06/19 21:42 10/06/19 22:29 Medication (Pyxis) PO 1 each Etain Forte 140mg HS PRN Administration PAIN Propranolol HCl 60 mg 10/05/19 10:00 10/07/19 10:29 Inderal La - PO Not Given DAILY GABRIEL Senna/Docusate Sodium 2 tablet 10/05/19 22:00 10/05/19 21:45 Pericolace - PO 2 tablet HS PRN Administration CONSTIPATION Impression 1. fluid overload 2. HTN 3. HLD 4. poorly differentiated carcinoma on biopsy of 11cm left lobe of the liver mass 5. hypothyroidism 6. elevated LDH 7. leukocytosis 8. UTI 9. cellulitis 10. PE 11. CELIA 12. hyperkalemia Plan - cont fluids - monitor lytes - can give a dose of lokelma for potassium - pt still with lower ext edema
--- NOTE | 2019-10-07 19:28 | PN ---
Progress Note (short form) - Note Progress Note: PAtient seen and examined tired, fatigued Last Vital Signs Temp Pulse Resp BP Pulse Ox 97.9 F 91 H 20 96/53 L 95 10/07/19 13:41 10/07/19 13:41 10/07/19 13:41 10/07/19 13:41 10/07/19 09:00 Cor: RSR, No murmurs, No gallops Lungs: Clear to P&A Abd: Soft, Normal bowel sounds, No organomegaly Ext:No significant edema Labs/meds reviewed A/P 69 y/o patient with unresecable, advanced cholangio ca, progressed on gem -ox, now with worsening performance status, fluid overload,renal and hepatic function For IV hydration Awaiting decision on compassionate use pembrolizumab Ongoing goals of care discussions with patient and daughter
[2019-10-07] MEDS: MELATONIN 5 MG TABLETS PO PRN (21:45)
[2019-10-08] MEDS: oxyCODONE HCL 5 MG TABLET PO PRN ×2 (05:18→14:06)
[2019-10-08] MEDS: LEVOTHYROXINE NA 50 MCG TABLET (FP) PO SCH (06:57)
[2019-10-08] MEDS: [UNRECOGNIZED DRUG - OTHER] PO PRN ×2 (06:58→12:35)
[2019-10-08] MEDS: MEDICAL MARIJUANA PO PRN ×2 (06:58→12:35)
[2019-10-08] MEDS: ENOXAPARIN NA (PORCINE) 120 MG/0.8 ML DISP.SYRIN SQ SCH (10:23)
[2019-10-08] MEDS: PANTOPRAZOLE SODIUM 40 MG VIAL IVPB SCH (10:23)
[2019-10-08] MEDS: SODIUM CHLORIDE 1,000 ML IV SCH (10:24)
[2019-10-08] MEDS: BACITRACIN 15 GM TUBE TOPICAL OINTMENT TP SCH ×2 (10:26→21:25)
--- NOTE | 2019-10-08 12:17 | PN ---
Progress Note (short form) - Note Progress Note: Patient seen and examined Distraught about declining clinical status and bed- ridden status -Wanted MS drip and no further blood letting, but is willing to await information about immunotherapy which apparently will become available later this afternoon. Patients "discomfort" problabley reflective of significant pain. Will start prn low dose morphine- not for sedation but for comfort - patient and daughter OK with this now. Mother coming from [place] to see Kylie-First informed of Krystian illness today Brother up from [place] Last Vital Signs Temp Pulse Resp BP Pulse Ox 98.1 F 92 H 16 111/63 96 10/08/19 09:00 10/08/19 09:00 10/08/19 09:00 10/08/19 09:00 10/08/19 09:00 No thrush Lungs- clear anteriorly with poor inspiratory effor Cor-RSR Abd- distension LE edema CBC, BMP 10/07/19 09:30 10/07/19 09:30 Current Medications Generic Name Dose Route Start Last Admin Trade Name Robq PRN Reason Stop Dose Admin Alprazolam 0.125 mg 10/07/19 21:30 Xanax - PO DAILY PRN ANXIETY Bacitracin 1 applic 10/05/19 10:00 10/08/19 10:26 Bacitracin - TP 1 applic BID GABRIEL Administration Enoxaparin Sodium 120 mg 10/05/19 10:00 10/08/19 10:23 Lovenox - SQ 120 mg DAILY GABRIEL Administration Sodium Chloride 1,000 mls @ 75 mls/hr 10/07/19 08:15 10/08/19 10:24 Normal Saline - IV 75 mls/hr ASDIR GABRIEL Administration Levothyroxine Sodium 50 mcg 10/05/19 07:00 10/08/19 06:57 Synthroid - PO 50 mcg DAILY@0700 GABRIEL Administration Loperamide HCl 2 mg 10/04/19 14:07 Imodium - PO Q6H PRN CONSTIPATION Melatonin 5 mg 10/04/19 14:09 10/07/19 21:45 Melatonin PO 5 mg HS PRN Administration INSOMNIA Ondansetron HCl 8 mg 10/06/19 11:14 10/06/19 11:17 Zofran Injection IVPB 8 mg Q8H PRN Administration NAUSEA AND/OR VOMITING Oxycodone HCl 5 mg 10/07/19 19:36 10/08/19 05:18 Roxicodone - PO 5 mg Q8H PRN Administration PAIN LEVEL 6-10 Pantoprazole Sodium 40 mg 10/04/19 14:15 10/08/19 10:23 Protonix Iv IVPB 40 mg DAILY GABRIEL Administration Pt's Own Med (Etain 1 each 10/06/19 16:00 10/08/19 06:58 Balance Capsules- PO 1 each Medical Marijuana) Q6H PRN Administration PAIN Patient's Own 1 each 10/06/19 21:42 10/06/19 22:29 Medication (Pyxis) PO 1 each Etain Forte 140mg HS PRN Administration PAIN Propranolol HCl 60 mg 10/05/19 10:00 10/08/19 10:34 Inderal La - PO Not Given DAILY GABRIEL Senna/Docusate Sodium 2 tablet 10/05/19 22:00 10/05/19 21:45 Pericolace - PO 2 tablet HS PRN Administration CONSTIPATION Impression: Metastatic cholangioca Worsening hepato-renal Fluid overload Pain management Decision about IO later today Low dose morphine ( not drip) Patient to decide re further management pending IO information.
[2019-10-08] MEDS: MORPHINE SULFATE 2 MG/ML VIAL IVPUSH SCH ×2 (12:49→17:43)
--- NOTE | 2019-10-08 14:34 | PN ---
Progress Note, Physician History of Present Illness: Pt seen and examined at bedside. She is awake but fatigued. She denies shortness of breath. - Current Medication List Current Medications: Active Medications Alprazolam (Xanax -) 0.125 mg PO DAILY PRN PRN Reason: ANXIETY Bacitracin (Bacitracin -) 1 applic TP BID [facility] Last Admin: 10/08/19 10:26 Dose: 1 applic Enoxaparin Sodium (Lovenox -) 120 mg SQ DAILY [facility] Last Admin: 10/08/19 10:23 Dose: 120 mg Sodium Chloride (Normal Saline -) 1,000 mls @ 75 mls/hr IV ASDIR [facility] Last Admin: 10/08/19 10:24 Dose: 75 mls/hr Levothyroxine Sodium (Synthroid -) 50 mcg PO DAILY@0700 [facility] Last Admin: 10/08/19 06:57 Dose: 50 mcg Loperamide HCl (Imodium -) 2 mg PO Q6H PRN PRN Reason: CONSTIPATION Melatonin (Melatonin) 5 mg PO HS PRN PRN Reason: INSOMNIA Last Admin: 10/07/19 21:45 Dose: 5 mg Morphine Sulfate (Morphine Sulfate) 1 mg IVPUSH Q6H [facility] Last Admin: 10/08/19 12:49 Dose: Not Given Ondansetron HCl (Zofran Injection) 8 mg IVPB Q8H PRN PRN Reason: NAUSEA AND/OR VOMITING Last Admin: 10/06/19 11:17 Dose: 8 mg Oxycodone HCl (Roxicodone -) 5 mg PO Q8H PRN PRN Reason: PAIN LEVEL 6-10 Last Admin: 10/08/19 14:06 Dose: 5 mg Pantoprazole Sodium (Protonix Iv) 40 mg IVPB DAILY [facility] Last Admin: 10/08/19 10:23 Dose: 40 mg Pt's Own Med (Etain Balance Capsules- Medical Marijuana) 1 each PO Q6H PRN PRN Reason: PAIN Last Admin: 10/08/19 12:35 Dose: 1 each Patient's Own Medication (Pyxis) Etain Forte 140mg 1 each PO HS PRN PRN Reason: PAIN Last Admin: 10/06/19 22:29 Dose: 1 each Propranolol HCl (Inderal La -) 60 mg PO DAILY [facility] Last Admin: 01/10/20 10:34 Dose: Not Given Senna/Docusate Sodium (Pericolace -) 2 tablet PO HS PRN PRN Reason: CONSTIPATION Last Admin: 10/05/19 21:45 Dose: 2 tablet - Objective Vital Signs: Vital Signs Temperature 98.1 F 10/08/19 09:00 Pulse Rate 92 H 10/08/19 09:00 Respiratory Rate 16 10/08/19 09:00 Blood Pressure 111/63 10/08/19 09:00 O2 Sat by Pulse Oximetry (%) 96 10/08/19 09:00 Constitutional: Yes: Calm Eyes: Yes: Conjunctiva Clear HENT: Yes: Atraumatic Neck: Yes: Supple Cardiovascular: Yes: S1, S2 Respiratory: Yes: CTA Bilaterally Gastrointestinal: Yes: Soft Genitourinary: Yes: Incontinence Musculoskeletal: Yes: WNL Edema: Yes Edema: LLE: 2+, RLE: 2+ Integumentary: Yes: Venous Stasis Changes Neurological: Yes: Oriented Labs: CBC, BMP 10/07/19 09:30 10/07/19 09:30 INR, PTT INR 1.17 (0.83-1.09) H 10/05/19 06:00 Problem List - Problems (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 - INTRAHEPATIC BILE DUCT CARCINOMA (2) DVT (deep venous thrombosis) Code(s): I82.409 - ACUTE EMBOLISM AND THOMBOS UNSP DEEP VN UNSP LOWER EXTREMITY Qualifiers: DVT location: lower extremity Affected thrombotic vein of extremity: unspecified vein of extremity Chronicity: chronic Laterality: unspecified laterality Qualified Code(s): I82.509 - Chronic embolism and thrombosis of unspecified deep veins of unspecified lower extremity (3) CELIA (acute kidney injury) Code(s): N17.9 - ACUTE KIDNEY FAILURE, UNSPECIFIED Assessment/Plan Current Medications Generic Name Dose Route Start Last Admin Trade Name Freq PRN Reason Stop Dose Admin Alprazolam 0.125 mg 10/07/19 21:30 Xanax - PO DAILY PRN ANXIETY Bacitracin 1 applic 10/05/19 10:00 10/08/19 10:26 Bacitracin - TP 1 applic BID GABRIEL Administration Enoxaparin Sodium 120 mg 10/05/19 10:00 10/08/19 10:23 Lovenox - SQ 120 mg DAILY GABRIEL Administration Sodium Chloride 1,000 mls @ 75 mls/hr 10/07/19 08:15 10/08/19 10:24 Normal Saline - IV 75 mls/hr ASDIR GABRIEL Administration Levothyroxine Sodium 50 mcg 10/05/19 07:00 10/08/19 06:57 Synthroid - PO 50 mcg DAILY@0700 GABRIEL Administration Loperamide HCl 2 mg 10/04/19 14:07 Imodium - PO Q6H PRN CONSTIPATION Melatonin 5 mg 10/04/19 14:09 10/07/19 21:45 Melatonin PO 5 mg HS PRN Administration INSOMNIA Morphine Sulfate 1 mg 10/08/19 12:00 10/08/19 12:49 Morphine Sulfate IVPUSH Not Given Q6H GABRIEL Ondansetron HCl 8 mg 10/06/19 11:14 10/06/19 11:17 Zofran Injection IVPB 8 mg Q8H PRN Administration NAUSEA AND/OR VOMITING Oxycodone HCl 5 mg 10/07/19 19:36 10/08/19 14:06 Roxicodone - PO 5 mg Q8H PRN Administration PAIN LEVEL 6-10 Pantoprazole Sodium 40 mg 10/04/19 14:15 10/08/19 10:23 Protonix Iv IVPB 40 mg DAILY GABRIEL Administration Pt's Own Med (Etain 1 each 10/06/19 16:00 10/08/19 12:35 Balance Capsules- PO 1 each Medical Marijuana) Q6H PRN Administration PAIN Patient's Own 1 each 10/06/19 21:42 10/06/19 22:29 Medication (Pyxis) PO 1 each Etain Forte 140mg HS PRN Administration PAIN Propranolol HCl 60 mg 10/05/19 10:00 10/08/19 10:34 Inderal La - PO Not Given DAILY GABRIEL Senna/Docusate Sodium 2 tablet 10/05/19 22:00 10/05/19 21:45 Pericolace - PO 2 tablet HS PRN Administration CONSTIPATION Impression 1. fluid overload 2. HTN 3. HLD 4. poorly differentiated carcinoma on biopsy of 11cm left lobe of the liver mass 5. hypothyroidism 6. elevated LDH 7. leukocytosis 8. UTI 9. cellulitis 10. PE 11. CELIA 12. hyperkalemia Plan - check cmp - check renal ultrasound - cont fluids. will add dextrose - pt still with lower ext edema
[2019-10-08] MEDS: DEXTROSE 5%-WATER - 1,000 ML IV SCH (14:46)
[2019-10-08] MEDS ORDERED: DEXAMETHASONE SOD PHOSPHATE 10 MG/1 ML VIAL ONE (17:41)
[2019-10-08] MEDS ORDERED: DEXAMETHASONE SODIUM PHOSPHATE 8 MG in SODIUM CHLORIDE 50 ML IVPB ONE (18:00)
[2019-10-08] MEDS ORDERED: PEMBROLIZUMAB 200 MG in SODIUM CHLORIDE 50 ML IV ONE (18:30)
[2019-10-09] MEDS: MORPHINE SULFATE 2 MG/ML VIAL IVPUSH SCH ×3 (01:27→05:47)
[2019-10-09] MEDS: ALPRAZolam 0.25 MG TABLET PO PRN ×2 (04:58→14:29)
[2019-10-09] MEDS: LEVOTHYROXINE NA 50 MCG TABLET (FP) PO SCH (06:03)
[2019-10-09] MEDS: MEDICAL MARIJUANA PO PRN (06:58)
[2019-10-09] MEDS: [UNRECOGNIZED DRUG - OTHER] PO PRN (06:58)
[2019-10-09] MEDS ORDERED: MORPHINE SULFATE 2 MG/ML VIAL IVPUSH PRN ×3 (07:08→21:51)
[2019-10-09] MEDS: DEXTROSE 5%-WATER - 1,000 ML IV SCH ×2 (10:53→15:43)
[2019-10-09] MEDS: BACITRACIN 15 GM TUBE TOPICAL OINTMENT TP SCH ×2 (10:54→21:13)
[2019-10-09] MEDS: PANTOPRAZOLE SODIUM 40 MG VIAL IVPB SCH (10:54)
[2019-10-09] MEDS: ENOXAPARIN NA (PORCINE) 120 MG/0.8 ML DISP.SYRIN SQ SCH (10:54)
[2019-10-09 12:16] LABS: BASO % 0.6 % (0-2.0); EOS % 0.1 % (0-4.5); HEMATOCRIT 27.5 % (32.4-45.2); HEMOGLOBIN 8.8 GM/dL (10.7-15.3); LYMPH % 10.7 % (8-40); MCH 31.5 pg (25.7-33.7); MCHC 31.9 g/dl (32.0-36.0); MEAN CELL VOLUME 98.7 fl (80-96); MONO % 7.6 % (3.8-10.2); PLATELET COUNT 180 K/MM3 (134-434); RBC 2.78 M/mm3 (3.60-5.2); RDW 17.9 % (11.6-15.6)
[2019-10-09 12:20] LABS: WHITE BLOOD COUNT 30.7 K/mm3 (4.0-10.0)
--- NOTE | 2019-10-09 13:04 | PN ---
Progress Note (short form) - Note Progress Note: Seen in follow up. Received Keytruda yesterday, otherwise no events overnight. Somnolent. Daughter says she is comfortable. Inpatient meds reviewed: Current Medications Generic Name Dose Route Start Last Admin Trade Name Freq PRN Reason Stop Dose Admin Alprazolam 0.125 mg 10/07/19 21:30 10/09/19 04:58 Xanax - PO 0.125 mg DAILY PRN Administration ANXIETY Bacitracin 1 applic 10/05/19 10:00 10/09/19 10:54 Bacitracin - TP 1 applic BID GABRIEL Administration Enoxaparin Sodium 120 mg 10/05/19 10:00 10/09/19 10:54 Lovenox - SQ 120 mg DAILY GABRIEL Administration Dextrose 1,000 mls @ 75 mls/hr 10/08/19 14:45 10/09/19 10:53 D5w - IV 75 mls/hr ASDIR GABRIEL Administration Levothyroxine Sodium 50 mcg 10/05/19 07:00 10/09/19 06:03 Synthroid - PO Not Given DAILY@0700 GABRIEL Loperamide HCl 2 mg 10/04/19 14:07 Imodium - PO Q6H PRN CONSTIPATION Melatonin 5 mg 10/04/19 14:09 10/07/19 21:45 Melatonin PO 5 mg HS PRN Administration INSOMNIA Morphine Sulfate 1 mg 10/09/19 07:08 Morphine Sulfate IVPUSH Q6H PRN PAIN LEVEL 6-10 Ondansetron HCl 8 mg 10/06/19 11:14 10/06/19 11:17 Zofran Injection IVPB 8 mg Q8H PRN Administration NAUSEA AND/OR VOMITING Pantoprazole Sodium 40 mg 10/04/19 14:15 10/09/19 10:54 Protonix Iv IVPB 40 mg DAILY GABRIEL Administration Pt's Own Med (Etain 1 each 10/06/19 16:00 10/09/19 06:58 Balance Capsules- PO 1 each Medical Marijuana) Q6H PRN Administration PAIN Patient's Own 1 each 10/06/19 21:42 10/06/19 22:29 Medication (Pyxis) PO 1 each Etain Forte 140mg HS PRN Administration PAIN Propranolol HCl 60 mg 10/05/19 10:00 10/09/19 10:55 Inderal La - PO 60 mg DAILY GABRIEL Administration Senna/Docusate Sodium 2 tablet 10/05/19 22:00 10/05/19 21:45 Pericolace - PO 2 tablet HS PRN Administration CONSTIPATION On Examination: Last Vital Signs Temp Pulse Resp BP Pulse Ox 98.9 F 95 H 20 122/66 96 10/09/19 10:53 10/09/19 10:53 10/09/19 10:53 10/09/19 10:53 10/09/19 09:00 General: In no acute distress, supine in bed. Extremities: No pallor or icterus. Bilateral pedal edema. CVS: S1, S2, no gallop or murmur Chest: breathing comfortably, clear Abdomen: non-distended, non-tender Neuro: Somnolent but rousable. Not oriented Labs: CBC, BMP 10/09/19 12:00 Assessment. Newly diagnosed metastatic cholangiocarcinoma, with rapid progression through first line chemotherapy. Poor prognosis, with decision made yesterday to focus on comfort measures. IV morphine instituted. IS DNR/DNI, but otherwise ongoing active treatment. Compassionate use Keytruda - administered last night. Close monitoring, supportive care.
[2019-10-09 13:08] LABS: ALBUMIN 2.1 g/dl (3.4-5.0); BILIRUBIN,TOTAL 3.4 mg/dL (0.2-1); BLOOD UREA NITROGEN 91.7 mg/dL (7-18); CALCIUM 8.7 mg/dL (8.5-10.1); CREATININE 2.9 mg/dL (0.55-1.3); POTASSIUM 5.7 mmol/L (3.5-5.1); TOT PROT 5.4 g/dl (6.4-8.2)
[2019-10-09 15:54] LABS: ANISOCYTOSIS 1+; MACROCYTOSIS 1+; PLATELET ESTIMATE NORMAL; TEAR DROP CELLS 1+
[2019-10-09] MEDS ORDERED: FUROSEMIDE 40 MG/4 ML INJECTABLE VIAL IVPUSH ONE (19:39)
--- NOTE | 2019-10-09 19:39 | PN ---
Progress Note, Physician History of Present Illness: Pt seen and examined at bedside. She is doing poorly. She is lethargic. - Current Medication List Current Medications: Active Medications Alprazolam (Xanax -) 0.125 mg PO DAILY PRN PRN Reason: ANXIETY Last Admin: 10/09/19 14:29 Dose: 0.125 mg Bacitracin (Bacitracin -) 1 applic TP BID [facility] Last Admin: 10/09/19 10:54 Dose: 1 applic Enoxaparin Sodium (Lovenox -) 120 mg SQ DAILY [facility] Last Admin: 10/09/19 10:54 Dose: 120 mg Dextrose (D5w -) 1,000 mls @ 75 mls/hr IV ASDIR [facility] Last Admin: 10/09/19 15:43 Dose: Not Given Levothyroxine Sodium (Synthroid -) 50 mcg PO DAILY@0700 [facility] Last Admin: 10/09/19 06:03 Dose: Not Given Loperamide HCl (Imodium -) 2 mg PO Q6H PRN PRN Reason: CONSTIPATION Melatonin (Melatonin) 5 mg PO HS PRN PRN Reason: INSOMNIA Last Admin: 10/07/19 21:45 Dose: 5 mg Morphine Sulfate (Morphine Sulfate) 1 mg IVPUSH Q8H PRN PRN Reason: PAIN LEVEL 6-10 Ondansetron HCl (Zofran Injection) 8 mg IVPB Q8H PRN PRN Reason: NAUSEA AND/OR VOMITING Last Admin: 10/06/19 11:17 Dose: 8 mg Pantoprazole Sodium (Protonix Iv) 40 mg IVPB DAILY [facility] Last Admin: 10/09/19 10:54 Dose: 40 mg Pt's Own Med (Etain Balance Capsules- Medical Marijuana) 1 each PO Q6H PRN PRN Reason: PAIN Last Admin: 10/09/19 06:58 Dose: 1 each Patient's Own Medication (Pyxis) Etain Forte 140mg 1 each PO HS PRN PRN Reason: PAIN Last Admin: 10/06/19 22:29 Dose: 1 each Propranolol HCl (Inderal La -) 60 mg PO DAILY [facility] Last Admin: 10/09/19 10:55 Dose: 60 mg Senna/Docusate Sodium (Pericolace -) 2 tablet PO HS PRN PRN Reason: CONSTIPATION Last Admin: 10/05/19 21:45 Dose: 2 tablet - Objective Vital Signs: Vital Signs Temperature 98.4 F 10/09/19 18:00 Pulse Rate 100 H 10/09/19 18:00 Respiratory Rate 20 10/09/19 18:00 Blood Pressure 116/56 L 10/09/19 18:00 O2 Sat by Pulse Oximetry (%) 96 10/09/19 09:00 Constitutional: Yes: Mild Distress Cardiovascular: Yes: S1, S2 Respiratory: Yes: On Nasal O2 Gastrointestinal: Yes: Soft, Abdomen, Obese Genitourinary: Yes: Incontinence Musculoskeletal: Yes: Muscle Weakness Edema: Yes Edema: LLE: 2+, RLE: 2+ Neurological: Yes: Lethargy Labs: CBC, BMP 10/09/19 12:00 10/09/19 12:00 INR, PTT INR 1.17 (0.83-1.09) H 10/05/19 06:00 Problem List - Problems (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 - INTRAHEPATIC BILE DUCT CARCINOMA (2) DVT (deep venous thrombosis) Code(s): I82.409 - ACUTE EMBOLISM AND THOMBOS UNSP DEEP VN UNSP LOWER EXTREMITY Qualifiers: DVT location: lower extremity Affected thrombotic vein of extremity: unspecified vein of extremity Chronicity: chronic Laterality: unspecified laterality Qualified Code(s): I82.509 - Chronic embolism and thrombosis of unspecified deep veins of unspecified lower extremity (3) CELIA (acute kidney injury) Code(s): N17.9 - ACUTE KIDNEY FAILURE, UNSPECIFIED Assessment/Plan Current Medications Generic Name Dose Route Start Last Admin Trade Name Freq PRN Reason Stop Dose Admin Alprazolam 0.125 mg 10/07/19 21:30 10/09/19 14:29 Xanax - PO 0.125 mg DAILY PRN Administration ANXIETY Bacitracin 1 applic 10/05/19 10:00 10/09/19 10:54 Bacitracin - TP 1 applic BID GABRIEL Administration Enoxaparin Sodium 120 mg 10/05/19 10:00 10/09/19 10:54 Lovenox - SQ 120 mg DAILY GABRIEL Administration Dextrose 1,000 mls @ 75 mls/hr 10/08/19 14:45 10/09/19 15:43 D5w - IV Not Given ASDIR GABRIEL Levothyroxine Sodium 50 mcg 10/05/19 07:00 10/09/19 06:03 Synthroid - PO Not Given DAILY@0700 GABRIEL Loperamide HCl 2 mg 10/04/19 14:07 Imodium - PO Q6H PRN CONSTIPATION Melatonin 5 mg 10/04/19 14:09 10/07/19 21:45 Melatonin PO 5 mg HS PRN Administration INSOMNIA Morphine Sulfate 1 mg 10/09/19 16:55 Morphine Sulfate IVPUSH Q8H PRN PAIN LEVEL 6-10 Ondansetron HCl 8 mg 10/06/19 11:14 10/06/19 11:17 Zofran Injection IVPB 8 mg Q8H PRN Administration NAUSEA AND/OR VOMITING Pantoprazole Sodium 40 mg 10/04/19 14:15 10/09/19 10:54 Protonix Iv IVPB 40 mg DAILY GABRIEL Administration Pt's Own Med (Etain 1 each 10/06/19 16:00 10/09/19 06:58 Balance Capsules- PO 1 each Medical Marijuana) Q6H PRN Administration PAIN Patient's Own 1 each 10/06/19 21:42 10/06/19 22:29 Medication (Pyxis) PO 1 each Etain Forte 140mg HS PRN Administration PAIN Propranolol HCl 60 mg 10/05/19 10:00 10/09/19 10:55 Inderal La - PO 60 mg DAILY GABRIEL Administration Senna/Docusate Sodium 2 tablet 10/05/19 22:00 10/05/19 21:45 Pericolace - PO 2 tablet HS PRN Administration CONSTIPATION Impression 1. fluid overload 2. HTN 3. HLD 4. poorly differentiated carcinoma on biopsy of 11cm left lobe of the liver mass 5. hypothyroidism 6. elevated LDH 7. leukocytosis 8. UTI 9. cellulitis 10. PE 11. CELIA 12. hyperkalemia Plan - potassium is higher - renal function worsening - change fluids to d5ns - will give a dose of lasix - will give bicarb - will treat potassium medically - spoke daughter at length
[2019-10-09] MEDS ORDERED: SODIUM CHLORIDE 500 ML IV STA (19:40)
[2019-10-09] MEDS ORDERED: SODIUM ZIRCONIUM CYCLOSILICATE (LOKELMA) 5 GM PACKET PO ONE (19:40)
[2019-10-09] MEDS ORDERED: SODIUM BICARBONATE 8.4% 50 MEQ/50 ML DISP.SYRIN IVPUSH ONE (19:41)
[2019-10-09] MEDS ORDERED: CALCIUM GLUCONATE 10% - 1,000 MG/10 ML VIAL IVPB ONE (19:41)
[2019-10-09] MEDS ORDERED: SODIUM BICARBONATE 8.4% 50 MEQ/50 ML VIAL ONE (20:19)
[2019-10-09] MEDS ORDERED: PT OWN MED DRAWER 7, Y5N ONE (20:20)
[2019-10-09] MEDS: DEXTROSE 5%-NORMAL SALINE 1,000 ML IV SCH (20:33)
[2019-10-09] MEDS: MORPHINE SULFATE 2 MG/ML VIAL IVPUSH PRN (21:57)
[2019-10-10] MEDS: MORPHINE SULFATE 2 MG/ML VIAL IVPUSH PRN ×2 (03:45→11:39)
[2019-10-10] MEDS: LEVOTHYROXINE NA 50 MCG TABLET (FP) PO SCH (06:25)
[2019-10-10] MEDS: MEDICAL MARIJUANA PO PRN (06:49)
[2019-10-10] MEDS: [UNRECOGNIZED DRUG - OTHER] PO PRN (06:49)
[2019-10-10] MEDS: ALPRAZolam 0.25 MG TABLET PO PRN (07:45)
[2019-10-10] MEDS ORDERED: MORPHINE SULFATE 2 MG/ML VIAL IVPUSH ONE (08:15)
[2019-10-10 08:26] LABS: BASO % 0.9 % (0-2.0); EOS % 0.2 % (0-4.5); HEMATOCRIT 24.8 % (32.4-45.2); HEMOGLOBIN 8.2 GM/dL (10.7-15.3); LYMPH % 8.2 % (8-40); MCH 32.1 pg (25.7-33.7); MEAN CELL VOLUME 97.1 fl (80-96); MEAN PLT VOLUME 8.9 fl (7.5-11.1); MONO % 6.4 % (3.8-10.2); NEUT % 84.3 % (42.8-82.8); PLATELET COUNT 164 K/MM3 (134-434); RBC 2.55 M/mm3 (3.60-5.2); RDW 17.7 % (11.6-15.6); WHITE BLOOD COUNT 27.2 K/mm3 (4.0-10.0)
[2019-10-10 09:08] LABS: ALBUMIN 1.9 g/dl (3.4-5.0); BILIRUBIN,TOTAL 3.3 mg/dL (0.2-1); BLOOD UREA NITROGEN 87.3 mg/dL (7-18); CALCIUM 8.5 mg/dL (8.5-10.1); CREATININE 2.9 mg/dL (0.55-1.3); POTASSIUM 5.1 mmol/L (3.5-5.1); TOT PROT 4.9 g/dl (6.4-8.2)
[2019-10-10] MEDS: DEXTROSE 5%-NORMAL SALINE 1,000 ML IV SCH ×2 (10:43→20:11)
[2019-10-10] MEDS: PANTOPRAZOLE SODIUM 40 MG VIAL IVPB SCH (10:44)
[2019-10-10] MEDS: BACITRACIN 15 GM TUBE TOPICAL OINTMENT TP SCH ×2 (10:45→22:13)
[2019-10-10] MEDS: ENOXAPARIN NA (PORCINE) 120 MG/0.8 ML DISP.SYRIN SQ SCH (11:39)
[2019-10-10 12:30] LABS: ANISOCYTOSIS 1+; MACROCYTOSIS 0; PLATELET ESTIMATE NORMAL
--- NOTE | 2019-10-10 13:49 | PN ---
Progress Note (short form) - Note Progress Note: Seen in follow up. Reported a bad night. Usually sleeps well with Xanax - not given last night. Somnolent. Reports intermittent abdominal discomfort - relieved with small dose morphine Inpatient meds reviewed: Current Medications Alprazolam (Xanax -) 0.125 mg PO DAILY PRN PRN Reason: ANXIETY Last Admin: 10/10/19 07:45 Dose: 0.125 mg Bacitracin (Bacitracin -) 1 applic TP BID [facility] Last Admin: 10/10/19 10:45 Dose: 1 applic Enoxaparin Sodium (Lovenox -) 120 mg SQ DAILY [facility] Last Admin: 10/10/19 11:39 Dose: Not Given Dextrose/Sodium Chloride (D5-Ns -) 1,000 mls @ 100 mls/hr IV ASDIR [facility] Last Admin: 10/10/19 10:43 Dose: 100 mls/hr Levothyroxine Sodium (Synthroid -) 50 mcg PO DAILY@0700 [facility] Last Admin: 10/10/19 06:25 Dose: Not Given Loperamide HCl (Imodium -) 2 mg PO Q6H PRN PRN Reason: CONSTIPATION Melatonin (Melatonin) 5 mg PO HS PRN PRN Reason: INSOMNIA Last Admin: 10/07/19 21:45 Dose: 5 mg Morphine Sulfate (Morphine Sulfate) 1 mg IVPUSH Q6H PRN PRN Reason: PAIN LEVEL 6-10 Last Admin: 10/10/19 11:39 Dose: 1 mg Ondansetron HCl (Zofran Injection) 8 mg IVPB Q8H PRN PRN Reason: NAUSEA AND/OR VOMITING Last Admin: 10/06/19 11:17 Dose: 8 mg Pantoprazole Sodium (Protonix Iv) 40 mg IVPB DAILY [facility] Last Admin: 10/10/19 10:44 Dose: 40 mg Pt's Own Med (Etain Balance Capsules- Medical Marijuana) 1 each PO Q6H PRN PRN Reason: PAIN Last Admin: 10/10/19 06:49 Dose: 1 each Patient's Own Medication (Pyxis) Etain Forte 140mg 1 each PO HS PRN PRN Reason: PAIN Last Admin: 10/06/19 22:29 Dose: 1 each Propranolol HCl (Inderal La -) 60 mg PO DAILY [facility] Last Admin: 10/10/19 10:46 Dose: 60 mg Senna/Docusate Sodium (Pericolace -) 2 tablet PO HS PRN PRN Reason: CONSTIPATION Last Admin: 10/05/19 21:45 Dose: 2 tablet On Examination: Last Vital Signs Temp Pulse Resp BP Pulse Ox 98.3 F 101 H 17 111/57 L 93 L 10/09/19 20:26 10/09/19 20:26 10/09/19 21:00 10/09/19 20:26 10/09/19 21:00 General: In no acute distress, supine in bed. Extremities: No pallor or icterus. Bilateral pedal edema. CVS: S1, S2, no gallop or murmur Chest: breathing comfortably, clear Abdomen: non-distended, non-tender Neuro: Somnolent but rousable. Not oriented Labs: CBC, BMP 10/10/19 06:40 10/10/19 06:40 Assessment. Newly diagnosed metastatic cholangiocarcinoma, with rapid progression through first line chemotherapy. Poor prognosis, with decision made yesterday to focus on comfort measures. Xanax PRN for anxiety/insomnia. Will increase IV morphine to 2mgs PRN q4, for abdominal pain/discomfort. [place] renal function - attenuated dose LMWH for treatment LE DVT. Is DNR/DNI, but otherwise ongoing active treatment. Compassionate use Keytruda - administered 07/09/20 Close monitoring, supportive care.
[2019-10-10] MEDS ORDERED: MORPHINE SULFATE 2 MG/ML VIAL IVPUSH PRN (13:51)
[2019-10-10] MEDS ORDERED: ALPRAZolam 0.25 MG TABLET PO PRN (15:15)
--- NOTE | 2019-10-10 16:07 | PN ---
Progress Note (short form) - Note Progress Note: PAtient awake, oriented. IS expressing stongly her wishes to be comfort care only Does not want anything to prolong her life Wants to come off all meds, blood draws, active treatment, supportive care. Wants to be made comfortable disucssed this with her daughter and son-in-law in detail will start morphine drip and titrate to comfort
[2019-10-10] MEDS: MORPHINE SULFATE/0.9% NACL/PF 100 MG/100 ML BAG IVPB SCH (18:39)
--- NOTE | 2019-10-10 19:10 | PN ---
Progress Note, Physician History of Present Illness: Pt seen and examined at bedside. She is lethargic. Discussed with oncology, pt on comfort care per her wishes. - Current Medication List Current Medications: Active Medications Alprazolam (Xanax -) 0.125 mg PO Q8H PRN PRN Reason: ANXIETY Bacitracin (Bacitracin -) 1 applic TP BID [facility] Last Admin: 10/10/19 10:45 Dose: 1 applic Dextrose/Sodium Chloride (D5-Ns -) 1,000 mls @ 100 mls/hr IV ASDIR GABRIEL Last Admin: 10/10/19 10:43 Dose: 100 mls/hr Morphine Sulfate (Morphine 100mg/100ml-0.9% Nacl) 100 mg in 100 mls @ 1 mls/hr IVPB TITR GABRIEL; Protocol Last Admin: 10/10/19 18:39 Dose: 2 mg/hr, 2 mls/hr Loperamide HCl (Imodium -) 2 mg PO Q6H PRN PRN Reason: CONSTIPATION Ondansetron HCl (Zofran Injection) 8 mg IVPB Q8H PRN PRN Reason: NAUSEA AND/OR VOMITING Last Admin: 10/06/19 11:17 Dose: 8 mg Pt's Own Med (Etain Balance Capsules- Medical Marijuana) 1 each PO Q6H PRN PRN Reason: PAIN Last Admin: 10/10/19 06:49 Dose: 1 each Patient's Own Medication (Pyxis) Etain Forte 140mg 1 each PO HS PRN PRN Reason: PAIN Last Admin: 10/06/19 22:29 Dose: 1 each - Objective Vital Signs: Vital Signs Temperature 98.3 F 10/09/19 20:26 Pulse Rate 101 H 10/09/19 20:26 Respiratory Rate 17 10/09/19 21:00 Blood Pressure 111/57 L 10/09/19 20:26 O2 Sat by Pulse Oximetry (%) 95 10/10/19 09:00 Constitutional: Yes: Mild Distress Eyes: Yes: Conjunctiva Clear HENT: Yes: Atraumatic Cardiovascular: Yes: S1, S2 Respiratory: Yes: On Nasal O2 Gastrointestinal: Yes: Soft Genitourinary: Yes: Incontinence Musculoskeletal: Yes: Muscle Weakness Edema: Yes Edema: LLE: 2+, RLE: 2+ Neurological: Yes: Lethargy Labs: CBC, BMP 10/10/19 06:40 10/10/19 06:40 INR, PTT INR 1.17 (0.83-1.09) H 10/05/19 06:00 Problem List - Problems (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 - INTRAHEPATIC BILE DUCT CARCINOMA (2) DVT (deep venous thrombosis) Code(s): I82.409 - ACUTE EMBOLISM AND THOMBOS UNSP DEEP VN UNSP LOWER EXTREMITY Qualifiers: DVT location: lower extremity Affected thrombotic vein of extremity: unspecified vein of extremity Chronicity: chronic Laterality: unspecified laterality Qualified Code(s): I82.509 - Chronic embolism and thrombosis of unspecified deep veins of unspecified lower extremity (3) CELIA (acute kidney injury) Code(s): N17.9 - ACUTE KIDNEY FAILURE, UNSPECIFIED Assessment/Plan Current Medications Generic Name Dose Route Start Last Admin Trade Name Freq PRN Reason Stop Dose Admin Alprazolam 0.125 mg 10/10/19 15:15 Xanax - PO Q8H PRN ANXIETY Bacitracin 1 applic 10/05/19 10:00 10/10/19 10:45 Bacitracin - TP 1 applic BID GABRIEL Administration Dextrose/Sodium Chloride 1,000 mls @ 100 mls/hr 10/09/19 19:45 10/10/19 10:43 D5-Ns - IV 100 mls/hr ASDIR GABRIEL Administration Morphine Sulfate 100 mg in 100 mls @ 1 mls/hr 10/10/19 16:00 10/10/19 18:39 Morphine 100mg/100ml-0.9% Nacl IVPB 2 mg/hr TITR GABRIEL 2 mls/hr Administration Protocol 1 MG/HR Loperamide HCl 2 mg 10/04/19 14:07 Imodium - PO Q6H PRN CONSTIPATION Ondansetron HCl 8 mg 10/06/19 11:14 10/06/19 11:17 Zofran Injection IVPB 8 mg Q8H PRN Administration NAUSEA AND/OR VOMITING Pt's Own Med (Etain 1 each 10/06/19 16:00 10/10/19 06:49 Balance Capsules- PO 1 each Medical Marijuana) Q6H PRN Administration PAIN Patient's Own 1 each 10/06/19 21:42 10/06/19 22:29 Medication (Pyxis) PO 1 each Etain Forte 140mg HS PRN Administration PAIN Impression 1. fluid overload 2. HTN 3. HLD 4. poorly differentiated carcinoma on biopsy of 11cm left lobe of the liver mass 5. hypothyroidism 6. elevated LDH 7. leukocytosis 8. UTI 9. cellulitis 10. PE 11. CELIA 12. 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
[2019-10-11] MEDS: BACITRACIN 15 GM TUBE TOPICAL OINTMENT TP SCH ×2 (10:27→21:38)
[2019-10-11 12:23] VITALS: BP 99/72; PULSE 111; TEMP 98
--- NOTE | 2019-10-11 14:21 | PN ---
Progress Note, Physician History of Present Illness: Pt seen and examined at bedside. Family at bedside. She is on a morphine drip. She was agitated overnight but is more comfortable now. - Current Medication List Current Medications: Active Medications Alprazolam (Xanax -) 0.125 mg PO Q8H PRN PRN Reason: ANXIETY Last Admin: 10/10/19 22:05 Dose: 0.125 mg Bacitracin (Bacitracin -) 1 applic TP BID GABRIEL Last Admin: 10/11/19 10:27 Dose: Not Given Dextrose/Sodium Chloride (D5-Ns -) 1,000 mls @ 100 mls/hr IV ASDIR GABRIEL Last Admin: 10/10/19 20:11 Dose: Not Given Morphine Sulfate (Morphine 100mg/100ml-0.9% Nacl) 100 mg in 100 mls @ 1 mls/hr IVPB TITR GABRIEL; Protocol Last Infusion: 10/11/19 13:16 Dose: 5.5 mg/hr, 5.5 mls/hr Loperamide HCl (Imodium -) 2 mg PO Q6H PRN PRN Reason: CONSTIPATION Morphine Sulfate (Morphine Injection -) 1 mg IVPUSH Q4H PRN PRN Reason: PAIN LEVEL 1-5 Ondansetron HCl (Zofran Injection) 8 mg IVPB Q8H PRN PRN Reason: NAUSEA AND/OR VOMITING Last Admin: 10/06/19 11:17 Dose: 8 mg Pt's Own Med (Etain Balance Capsules- Medical Marijuana) 1 each PO Q6H PRN PRN Reason: PAIN Last Admin: 10/10/19 06:49 Dose: 1 each Patient's Own Medication (Pyxis) Etain Forte 140mg 1 each PO HS PRN PRN Reason: PAIN Last Admin: 10/06/19 22:29 Dose: 1 each - Objective Vital Signs: Vital Signs Temperature 98.0 F 10/11/19 10:00 Pulse Rate 111 H 10/11/19 10:00 Respiratory Rate 16 10/11/19 10:00 Blood Pressure 99/72 10/11/19 10:00 O2 Sat by Pulse Oximetry (%) 91 L 10/11/19 09:00 Constitutional: Yes: No Distress, Calm Cardiovascular: Yes: S1, S2 Respiratory: Yes: CTA Bilaterally Gastrointestinal: Yes: Soft Genitourinary: Yes: Incontinence Edema: Yes Neurological: Yes: Lethargy Labs: CBC, BMP 10/10/19 06:40 10/10/19 06:40 INR, PTT INR 1.17 (0.83-1.09) H 10/05/19 06:00 Problem List - Problems (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 - INTRAHEPATIC BILE DUCT CARCINOMA (2) DVT (deep venous thrombosis) Code(s): I82.409 - ACUTE EMBOLISM AND THOMBOS UNSP DEEP VN UNSP LOWER EXTREMITY Qualifiers: DVT location: lower extremity Affected thrombotic vein of extremity: unspecified vein of extremity Chronicity: chronic Laterality: unspecified laterality Qualified Code(s): I82.509 - Chronic embolism and thrombosis of unspecified deep veins of unspecified lower extremity (3) CELIA (acute kidney injury) Code(s): N17.9 - ACUTE KIDNEY FAILURE, UNSPECIFIED Assessment/Plan Current Medications Generic Name Dose Route Start Last Admin Trade Name Freq PRN Reason Stop Dose Admin Alprazolam 0.125 mg 10/10/19 15:15 10/10/19 22:05 Xanax - PO 0.125 mg Q8H PRN Administration ANXIETY Bacitracin 1 applic 10/05/19 10:00 10/11/19 10:27 Bacitracin - TP Not Given BID GABRIEL Dextrose/Sodium Chloride 1,000 mls @ 100 mls/hr 10/09/19 19:45 10/10/19 20:11 D5-Ns - IV Not Given ASDIR GABRIEL Morphine Sulfate 100 mg in 100 mls @ 1 mls/hr 10/10/19 16:00 10/11/19 13:16 Morphine 100mg/100ml-0.9% Nacl IVPB 5.5 mg/hr TITR GABRIEL 5.5 mls/hr Infusion Protocol 1 MG/HR Loperamide HCl 2 mg 10/04/19 14:07 Imodium - PO Q6H PRN CONSTIPATION Morphine Sulfate 1 mg 10/11/19 14:13 Morphine Injection - IVPUSH Q4H PRN PAIN LEVEL 1-5 Ondansetron HCl 8 mg 10/06/19 11:14 10/06/19 11:17 Zofran Injection IVPB 8 mg Q8H PRN Administration NAUSEA AND/OR VOMITING Pt's Own Med (Etain 1 each 10/06/19 16:00 10/10/19 06:49 Balance Capsules- PO 1 each Medical Marijuana) Q6H PRN Administration PAIN Patient's Own 1 each 10/06/19 21:42 10/06/19 22:29 Medication (Pyxis) PO 1 each Etain Forte 140mg HS PRN Administration PAIN Impression 1. fluid overload 2. HTN 3. HLD 4. poorly differentiated liver carcinoma 5. hypothyroidism 6. elevated LDH 7. leukocytosis 8. UTI 9. cellulitis 10. PE 11. CELIA 12. hyperkalemia Plan - pt on morphine drip - pt on comfort care - discussed with family - discussed with oncology - will follow PRN
[2019-10-11] MEDS: MORPHINE SULFATE 2 MG/ML VIAL IVPUSH PRN ×2 (14:28→19:27)
[2019-10-11] MEDS: MORPHINE SULFATE/0.9% NACL/PF 100 MG/100 ML BAG IVPB SCH (16:38)
--- NOTE | 2019-10-11 18:58 | PN ---
Progress Note (short form) - Note Progress Note: PAtient comfortable On hospice care On morphine drip discussed with family at bed side
[2019-10-11] MEDS ORDERED: LORazepam 2 MG/ML SDV VIAL IVPB PRN (19:33)
[2019-10-11] MEDS: DEXTROSE 5%-NORMAL SALINE 1,000 ML IV SCH (21:37)
== END 2019-10-11 20:27 | disposition expired | DRG 435 ==
LOC: JER 12:06 → JERBED 13:07 → J7W 13:10 → UNDODISIN 10-12 01:03
PROVIDERS: ADMIT Internal Medicine Hematology & Oncology; ATTEND Internal Medicine Hematology & Oncology
DX: C22.1 Intrahepatic bile duct carcinoma (principal); I26.99 Other pulmonary embolism without acute cor pulmonale; N17.9 Acute kidney failure, unspecified; N39.0 Urinary tract infection, site not specified; L03.116 Cellulitis of left lower limb; L03.115 Cellulitis of right lower limb; R18.8 Other ascites; I82.409 Acute embolism and thrombosis of unspecified deep veins of unspecified lower extremity; E87.70 Fluid overload, unspecified; I10 Essential (primary) hypertension; E78.5 Hyperlipidemia, unspecified; E03.9 Hypothyroidism, unspecified; F17.210 Nicotine dependence, cigarettes, uncomplicated; D72.829 Elevated white blood cell count, unspecified; E87.5 Hyperkalemia; F41.9 Anxiety disorder, unspecified; G47.00 Insomnia, unspecified; I46.9 Cardiac arrest, cause unspecified; Z66 Do not resuscitate
CPT/HCPCS: 36415; 76700-TC; 76775-TC; 80053; 81003; 82140; 82436; 82565; 84133; 84300; 85025; 85610; 85730; 97116-GP; 97162-GP; 99282-25; J1100; J7030; J9271